=== PATIENT | female | born 1965 | race Caucasian/White ===

== ENCOUNTER → 2020-08-21 15:00 | Outpatient (BNV) | payer OTHER, SELFPAY | PROVIDERS: Visit Provider Internal Medicine | DX: C50.911 Malignant neoplasm of unspecified site of right female breast (principal); Z79.810 Long term (current) use of selective estrogen receptor modulators (SERMs); Z17.0 Estrogen receptor positive status [ER+] | CPT/HCPCS: 99213; 99214 ==

== ENCOUNTER 2020-09-19 10:00 | Outpatient (RCR) | payer OTHER, SELFPAY | END 2020-09-19 23:55 | disposition home or self-care (01) | LOC: HO.PAOS 10:00 | PROVIDERS: Visit Provider Counselor Mental Health | DX: F43.23 Adjustment disorder with mixed anxiety and depressed mood (principal) | CPT/HCPCS: 90834 ==

== ENCOUNTER → 2020-10-06 08:53 | Outpatient (BNVA) | payer OTHER, SELFPAY | PROVIDERS: Visit Provider Surgery | DX: Z76.89 Persons encountering health services in other specified circumstances (principal) ==

== ENCOUNTER 2020-11-10 11:20 | Outpatient (REF) | payer OTHER, SELFPAY | END 2020-11-10 11:21 | disposition home or self-care (01) | LOC: HO.LAB 11:20 | PROVIDERS: Visit Provider Internal Medicine | DX: Z20.828 Contact with and (suspected) exposure to other viral communicable diseases (principal) | CPT/HCPCS: 36415; C9803; U0003 ==

== ENCOUNTER 2021-01-02 10:46 | Outpatient (REF) | payer OTHER, SELFPAY ==
--- NOTE | ~2021-01-02 | US_ITS ---
EXAMINATION: US PELVIS COMPLETE US TRANSVAGINAL CLINICAL INFORMATION: Leiomyoma of the uterus. COMPARISON: Ultrasound pelvis 06/14/2020. TECHNIQUE: Transabdominal and transvaginal ultrasounds of the pelvis are performed. FINDINGS: The uterus is anteverted and anteflexed measuring 12.9 cm in length, 3.6 cm in AP and 5.0 cm in transverse dimension. There are several hypoechoic uterine lesions seen: 1. Lesion in the central uterus measures 4.1 x 4.0 4.5 cm. Previously it measured 4.1 x 4.2 x 4.1 cm. 2. Lesion in the right fundus measures 1.5 x 1.1 x 1.4 cm. Previously it measured 1.2 x 1.2 x 1.3 cm. 3. Lesion in the left body of uterus measures 1.7 x 1.5 x 1.4 cm. Previously it measured 1.9 x 1.7 x 1.7 cm. 4. Lesion in the right body of the uterus measures 2.3 x 2.0 x 2.1 cm. Previously it measured 2.0 x 2.1 x 2.0 cm. 5. Lesion in the lower right uterine segment measures 1.5 x 1.1 x 1.5 cm. Previously it measured 1.4 x 1.1 x 1.3 cm. The endometrium is not well visualized due to multiple fibroids. There are small nabothian cysts seen within the cervical canal. Right ovary measures 2.6 x 1.2 x 2.1 cm and volume 3.4 mL. Previously it measured 2.3 x 1.4 x 1.9 seen. There is no free fluid in cul-de-sac. The left ovary is not seen. US/US transvaginal IMPRESSION: Multiple uterine fibroids, stable. No significant changes. Small nabothian cysts in the cervix. Unremarkable right ovary. Left ovary is not seen.
--- NOTE | ~2021-01-02 | US_ITS ---
EXAMINATION: US PELVIS COMPLETE US TRANSVAGINAL CLINICAL INFORMATION: Leiomyoma of the uterus. COMPARISON: Ultrasound pelvis 06/14/2020. TECHNIQUE: Transabdominal and transvaginal ultrasounds of the pelvis are performed. FINDINGS: The uterus is anteverted and anteflexed measuring 12.9 cm in length, 3.6 cm in AP and 5.0 cm in transverse dimension. There are several hypoechoic uterine lesions seen: 1. Lesion in the central uterus measures 4.1 x 4.0 4.5 cm. Previously it measured 4.1 x 4.2 x 4.1 cm. 2. Lesion in the right fundus measures 1.5 x 1.1 x 1.4 cm. Previously it measured 1.2 x 1.2 x 1.3 cm. 3. Lesion in the left body of uterus measures 1.7 x 1.5 x 1.4 cm. Previously it measured 1.9 x 1.7 x 1.7 cm. 4. Lesion in the right body of the uterus measures 2.3 x 2.0 x 2.1 cm. Previously it measured 2.0 x 2.1 x 2.0 cm. 5. Lesion in the lower right uterine segment measures 1.5 x 1.1 x 1.5 cm. Previously it measured 1.4 x 1.1 x 1.3 cm. The endometrium is not well visualized due to multiple fibroids. There are small nabothian cysts seen within the cervical canal. Right ovary measures 2.6 x 1.2 x 2.1 cm and volume 3.4 mL. Previously it measured 2.3 x 1.4 x 1.9 seen. There is no free fluid in cul-de-sac. The left ovary is not seen. US/US pelvic complete IMPRESSION: Multiple uterine fibroids, stable. No significant changes. Small nabothian cysts in the cervix. Unremarkable right ovary. Left ovary is not seen.
== END 2021-01-02 10:47 | disposition home or self-care (01) ==
LOC: HO.US 10:46
PROVIDERS: Visit Provider Obstetrics & Gynecology
DX: D25.9 Leiomyoma of uterus, unspecified (principal)
CPT/HCPCS: 76830; 76856

== ENCOUNTER → 2021-01-10 09:07 | Outpatient (BNVA) | payer OTHER, SELFPAY | PROVIDERS: Visit Provider Obstetrics & Gynecology ==

== ENCOUNTER → 2021-01-17 09:45 | Outpatient (BNVA) | payer OTHER, SELFPAY | PROVIDERS: Visit Provider Surgery ==

== ENCOUNTER 2021-03-26 09:53 | Outpatient (REF) | payer OTHER, SELFPAY ==
--- NOTE | ~2021-03-26 | MM_ITS ---
EXAMINATION: MM DIAGNOSTIC DIGITAL BREAST TOMOSYNTHESIS, BILATERAL CLINICAL INFORMATION: Status post right breast lumpectomy and radiation therapy. COMPARISON: Mammography: May 25, 2020 and studies dating back to July 07, 2012 TECHNIQUE: Digital breast tomosynthesis is performed in both the craniocaudal and mediolateral oblique views along with computer-aided detection (CAD). Synthesized 2D images are generated from the tomosynthesis. Additional spot magnification views right breast in craniocaudal and 90 degree mediolateral views performed. FINDINGS: The breasts are heterogeneously dense, which may obscure small masses (ACR BI-RADS breast composition Category c). Postsurgical and radiation change again seen within the right breast. No new abnormal dominant mass or suspicious grouping of microcalcifications is seen within either breast. Results are provided to the patient at time of visit by the technologist. MM/MM tomosynthesis diagnostic BI IMPRESSION: Stable appearance of the breasts with no specific mammographic evidence to suggest new malignancy. ASSESSMENT: BI-RADS 2: Benign RECOMMENDATION: Diagnostic mammography at time of next annual exam, due in 12 months. This patient's information was entered into a reminder system with a target due date for their next mammogram.
== END 2021-03-26 09:54 | disposition home or self-care (01) ==
LOC: HO.MAMMO 09:53
PROVIDERS: Visit Provider Surgery
DX: C50.911 Malignant neoplasm of unspecified site of right female breast (principal); Z92.3 Personal history of irradiation
CPT/HCPCS: 77062; 77066

== ENCOUNTER → 2021-04-27 09:55 | Outpatient (BNVA) | payer OTHER, SELFPAY | PROVIDERS: PCP Pediatrics; Visit Provider Surgery ==

== ENCOUNTER → 2021-05-03 07:59 | Outpatient (BNVA) | payer OTHER, SELFPAY | PROVIDERS: PCP Pediatrics; Visit Provider Advanced Practice Midwife ==

== ENCOUNTER 2021-07-10 10:51 | Outpatient (REF) | payer OTHER, SELFPAY ==
--- NOTE | ~2021-07-10 | US_ITS ---
EXAMINATION: US PELVIS COMPLETE CLINICAL INFORMATION: Leiomyoma of the uterus. COMPARISON: Ultrasound pelvis 01/02/2021. TECHNIQUE: Transabdominal and transvaginal imaging of pelvis is performed. FINDINGS: The uterus is anteverted measuring 13.6 cm in length, 4.2 cm AP and 5.8 cm in transverse dimension. Endometrium is distorted secondary to fibroid disease with approximate thickness measuring 0.5 cm. There are several hypoechoic lesions visualized: 1. Lesion in the central uterus measures 3.3 x 3.3 x 2.6 cm. Previously it measured 4.1 x 4.0 x 4.5 cm. 2. Lesion in the right fundus measures 1.0 x 1.1 x 1.2 cm. Previously it measured 1.5 x 1.1 x 1.4 cm. 3. Lesion in the left mid body of uterus measures 1.3 x 1.2 x 1.4 cm. Previously it measured 1.7 x 1.5 x 1.4 cm. 4. Lesion in the right body of uterus measures 1.4 x 1.5 x 1.5 cm. Previously it measured 2.3 x 2.0 x 2.1 cm. 5. Previously seen lesion in the right lower uterine body is not visualized at this time. The right ovary measures 2.6 x 1.9 x 1 0.5 mL and volume 3.9 mL. It appears unremarkable. Previously right ovary measured 2.6 x 1.2 x 2.1 cm and volume 3.4 mL. The left ovary measures 2.3 x 2.9 x 1.6 cm and volume 5.2 mL. Previously not seen. There is no free fluid in the cul-de-sac. US/US pelvic complete IMPRESSION: Multiple uterine fibroids as described above. The endometrial thickness is not optimally visualized, however, measures approximately 0.5 cm. The right ovary is unremarkable. The left ovary is not seen.
== END 2021-07-10 10:52 | disposition home or self-care (01) ==
LOC: HO.US 10:51
PROVIDERS: PCP Pediatrics; Visit Provider Obstetrics & Gynecology
DX: D25.9 Leiomyoma of uterus, unspecified (principal)
CPT/HCPCS: 76830; 76856

== ENCOUNTER → 2021-07-17 09:33 | Outpatient (BNVA) | payer OTHER, SELFPAY | PROVIDERS: PCP Pediatrics; Visit Provider Surgery ==

== ENCOUNTER → 2021-07-24 14:53 | Outpatient (BNVA) | payer OTHER, SELFPAY | PROVIDERS: PCP Pediatrics; Visit Provider Obstetrics & Gynecology ==

== ENCOUNTER 2021-07-26 09:34 | Outpatient (REF) | payer OTHER, SELFPAY ==
--- NOTE | ~2021-07-26 | MR_ITS ---
EXAMINATION: MR BREAST WITHOUT AND WITH CONTRAST, BILATERAL CLINICAL INFORMATION: High-risk screening. History of right breast cancer treated with lumpectomy and radiation COMPARISON: No previous breast MRI. TECHNIQUE: Imaging was performed with a dedicated breast coil. Prior to the administration of contrast, bilateral axial T1 and bilateral axial T2 weighted sequences were obtained. After the uneventful administration of?6.5 mL of Gadavist, dynamic contrast-enhanced VIBRANT series through the breasts in the axial plane were performed. Subtracted images were performed and reviewed. A delayed sagittal sequence through both breasts was acquired. Additionally, CAD post-processing, including maximum intensity projections, 3-D reconstructions and kinetic analysis, were performed an independent workstation and reviewed by the interpreting radiologist is a portion of this exam. FINDINGS: There is minimal background parenchymal enhancement. LEFT BREAST: No suspicious masslike or non-masslike enhancement. No abnormal skin thickening or nipple retraction. No abnormal architectural distortion. Review of the T2 weighted images demonstrates no fibrocystic changes or dilated ducts. Review of kinetic images reveals no additional findings. RIGHT BREAST: Post lobectomy changes are demonstrated in the upper outer quadrant without associated enhancement. No suspicious masslike or non-masslike enhancement. No abnormal skin thickening or nipple retraction. No abnormal architectural distortion. Review of the T2 weighted images demonstrates no fibrocystic changes or dilated ducts. Review of kinetic images reveals no additional findings. There are postsurgical changes in the right axillary region. There is no suspicious internal mammary chain or axillary adenopathy. Limited views of the chest and abdomen are unremarkable. MR/MR breast BI wo/w con IMPRESSION: No MR specific evidence of malignancy. ASSESSMENT: LEFT BREAST: BI-RADS 1-Negative RIGHT BREAST: BI-RADS 1-Negative RECOMMENDATIONS: Clinical follow-up. Continued annual mammographic surveillance. Further breast MRI as risk factors dictate.
== END 2021-07-26 09:35 | disposition home or self-care (01) ==
LOC: HO.MRI 09:34
PROVIDERS: Visit Provider Surgery
DX: C50.911 Malignant neoplasm of unspecified site of right female breast (principal)
CPT/HCPCS: 77049; A9585

== ENCOUNTER → 2021-07-30 15:39 | Outpatient (BNVA) | payer OTHER, SELFPAY | PROVIDERS: PCP Pediatrics; Visit Provider Obstetrics & Gynecology ==

== ENCOUNTER → 2021-08-02 10:43 | Outpatient (REF) | payer OTHER, SELFPAY | LOC: HO.CARD 10:43 | PROVIDERS: Visit Provider Internal Medicine | DX: Z13.89 Encounter for screening for other disorder (principal) ==

== ENCOUNTER → 2021-08-30 09:36 | Outpatient (BNVA) | payer OTHER, SELFPAY | PROVIDERS: PCP Pediatrics; Visit Provider Obstetrics & Gynecology ==

== ENCOUNTER → 2021-10-16 09:10 | Outpatient (BNVA) | payer OTHER, SELFPAY | PROVIDERS: PCP Pediatrics; Visit Provider Surgery ==

== ENCOUNTER 2021-10-31 09:00 | Outpatient (RCR) | payer OTHER, SELFPAY | END 2021-12-03 13:26 | disposition home or self-care (01) | LOC: HO.PTWFD 09:00 | PROVIDERS: PCP Pediatrics; Visit Provider Pediatrics | DX: M54.30 Sciatica, unspecified side (principal) | CPT/HCPCS: 97110; 97140; 97161; 97530; 97535 ==

== ENCOUNTER → 2022-01-15 10:18 | Outpatient (BNVA) | payer OTHER, SELFPAY | PROVIDERS: PCP Internal Medicine; Referring Provider Internal Medicine; Visit Provider Surgery | DX: C50.911 Malignant neoplasm of unspecified site of right female breast (principal); F17.210 Nicotine dependence, cigarettes, uncomplicated; Z79.899 Other long term (current) drug therapy | CPT/HCPCS: 99212 ==

== ENCOUNTER 2022-03-29 12:19 | Outpatient (REF) | payer OTHER, SELFPAY ==
--- NOTE | ~2022-03-29 | MM_ITS ---
EXAMINATION: MM DIAGNOSTIC DIGITAL BREAST TOMOSYNTHESIS, BILATERAL CLINICAL INFORMATION: Status post right breast lumpectomy. COMPARISON: Mammography: MRI of 07/26/2021 and mammography dating back to 07/07/2012. TECHNIQUE: Digital breast tomosynthesis is performed in both the craniocaudal and mediolateral oblique views along with computer-aided detection (CAD). Synthesized 2D images are generated from the tomosynthesis. Spot magnification views of the right breast in craniocaudal and 90-degree mediolateral views. FINDINGS: The breasts are heterogeneously dense, which may obscure small masses (ACR BI-RADS breast composition Category c). There are no new significant masses, abnormal calcifications, or other abnormalities. Architectural distortion upper outer aspect of the right breast is again seen from previous surgery. Results are provided to the patient at time of visit by the technologist. MM/MM tomosynthesis diagnostic BI IMPRESSION: There are no significant changes from prior study. ASSESSMENT: BI-RADS 2: Benign. RECOMMENDATION: Diagnostic mammography at time of next annual exam, due in 12 months. This patient's information was entered into a reminder system with a target due date for their next mammogram.
== END 2022-03-29 12:20 | disposition home or self-care (01) ==
LOC: HO.MAMMO 12:19
PROVIDERS: PCP Internal Medicine; Visit Provider Pediatrics
DX: C50.911 Malignant neoplasm of unspecified site of right female breast (principal)
CPT/HCPCS: 77062; 77066

== ENCOUNTER 2022-07-10 11:01 | Outpatient (REF) | payer OTHER, SELFPAY ==
--- NOTE | ~2022-07-10 | US_ITS ---
EXAMINATION: US PELVIS CLINICAL INFORMATION: Leiomyoma of uterus. COMPARISON: Previous pelvic ultrasounds, most recent July 2021. TECHNIQUE: Ultrasound of the pelvis is performed using both transabdominal and transvaginal transducers along with Doppler. Transvaginal imaging is performed due to inadequate visualization transabdominally. FINDINGS: The uterus is anteverted and measures 9.3 x 3.8 x 6.1 cm region. There are 5 focal uterine lesions seen suggestive of fibroids. Largest measure 2.3 x 2.2 x 2.5 cm adjacent to the endometrium in the uterine body and 2.8 x 2 x 2.7 cm adjacent to the endometrium in the fundus. This does not appear appreciably changed from prior exams. The endometrium is difficult to visualize due to the fibroids Endometrial thickness is estimated at 0.7 cm. There are nabothian cysts in the cervix. The ovaries are not seen. There is no fluid in the pelvis. US/US pelvic and transvaginal IMPRESSION: Fibroid uterus. Ovaries not seen.
== END 2022-07-10 11:02 | disposition home or self-care (01) ==
LOC: HO.US 11:01
PROVIDERS: Visit Provider Advanced Practice Midwife
DX: D25.9 Leiomyoma of uterus, unspecified (principal)
CPT/HCPCS: 76830; 76856

== ENCOUNTER 2022-10-05 07:32 | Outpatient (REF) | payer OTHER, SELFPAY ==
[2022-10-05 09:24] LABS: Cholesterol 247 mg/dL; HDL Cholesterol 100 mg/dL; LDL Cholesterol Calculated 116 mg/dl; Triglycerides 157 mg/dL
== END 2022-10-05 07:33 | disposition home or self-care (01) ==
LOC: HO.LAB 07:32
PROVIDERS: PCP Internal Medicine; Visit Provider Internal Medicine
DX: Z00.01 Encounter for general adult medical examination with abnormal findings (principal); Z78.0 Asymptomatic menopausal state
CPT/HCPCS: 36415; 80061; 82306

== ENCOUNTER 2023-01-07 08:40 | Outpatient (REF) | payer OTHER, SELFPAY ==
--- NOTE | ~2023-01-07 | MM_ITS ---
EXAMINATION: BONE DENSITOMETRY CLINICAL INDICATION: Postmenopausal bone loss. COMPARISON: None (current study represents initial baseline exam). TECHNIQUE: Using a [employer] DXA System (software version: 13.1) manufactured by [employer], dual-energy x-ray absorptiometry was performed of the lumbar spine and left hip. The images are of good technical quality. Summary results are attached. FINDINGS: AP SPINE L1-L4: BMD 1.271 g/cm2, Z-score 1.4, T-score 0.8, normal. LEFT FEMUR, NECK: BMD 0.966 g/cm2, Z-score 0.4, T-score -0.5, normal. LEFT FEMUR, TOTAL: BMD 1.059 g/cm2, Z-score 1.0, T-score 0.4, normal. IDENTIFIED RISK FACTORS: Menopause. HISTORY OF FRACTURE: None listed. MEDICATIONS: Vitamin D. ERT/SERMS. MM/XR DEXA axial skeleton IMPRESSION: 1. DIAGNOSIS: Normal bone density based on the lowest T-score value of -0.5 in the femoral neck applying World Health Organization criteria. 2. 10-YEAR FRACTURE RISK PREDICTION, FRAX: According to the guidelines, FRAX calculation should only be performed on patients in the osteopenia bone density category. Therefore, FRAX was not performed on this patient.? 3. Treatment Recommendations: NOF guidelines recommend consideration for treatment in postmenopausal women and men age 50 and older presenting with the following: -A hip or vertebral (clinical or morphometric) fracture. -T-score less than or equal to -2.5 at the femoral neck or spine after appropriate evaluation to exclude secondary causes. -Low bone mass at the hip or spine and a 10-year fracture probability by FRAX of greater than or equal to 3% for hip fracture or greater than or equal to 20% for major osteoporotic fracture based on the [place] adapted WHO algorithm. 4. Other Recommendations: All treatment decisions require clinical judgment and consideration of individual patient factors, including patient preferences, comorbidities, previous drug use, risk factors not captured in the FRAX model (e.g. frailty, falls, vitamin D deficiency, increased bone turnover, interval significant decline in bone density) and possible under or overestimation of fracture risk by FRAX. FUTURE SCAN RECOMMENDATION: People with diagnosed cases of osteoporosis or at high risk for fracture should have regular bone mineral density tests. For patients eligible for Medicare, routine testing is allowed once every 2 years. The testing frequency can be increased to one year for patients who have rapidly progressing disease, those who are receiving or discontinuing medical therapy to restore bone mass, or have additional risk factors.
== END 2023-01-07 08:41 | disposition home or self-care (01) ==
LOC: HO.MAMMO 08:40
PROVIDERS: PCP Internal Medicine; Visit Provider Internal Medicine
DX: Z13.820 Encounter for screening for osteoporosis (principal); Z78.0 Asymptomatic menopausal state; C50.919 Malignant neoplasm of unspecified site of unspecified female breast
CPT/HCPCS: 77080

== ENCOUNTER → 2023-01-17 08:56 | Outpatient (BNVA) | payer OTHER, SELFPAY | PROVIDERS: PCP Internal Medicine; Referring Provider Internal Medicine; Visit Provider Surgery | DX: C50.911 Malignant neoplasm of unspecified site of right female breast (principal) ==

== ENCOUNTER 2023-04-01 10:57 | Outpatient (REF) | payer OTHER, SELFPAY ==
--- NOTE | ~2023-04-01 | MM_ITS ---
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 Due for yearly. COMPARISON: Multiple prior mammography exams, including most recent 03/29/2022. MRI bilateral breasts 07/26/2021. TECHNIQUE: Digital breast tomosynthesis is performed in both the craniocaudal and mediolateral oblique views along with computer-aided detection (CAD). Synthesized 2D images are generated from the tomosynthesis. Additional magnification right CC and magnification right ML views are obtained. FINDINGS: There are scattered areas of fibroglandular density (ACR BI-RADS breast composition Category b). There are post therapy changes on the right with stable scarring upper outer quadrant. Neither breast shows developing density or interval architectural abnormality. Benign grouped calcifications anterior 3:00 left breast noted in 2019 and no longer clearly demonstrated. There are no abnormal calcifications in either breast. The axilla are unremarkable. Results are provided to the patient at time of visit by the technologist. MM/MM tomosynthesis diagnostic BI IMPRESSION: -No mammographic evidence of malignancy. -Post therapy changes right breast, stable. ASSESSMENT: BI-RADS 2: Benign RECOMMENDATION: Annual bilateral mammography. This patient's information was entered into a reminder system with a target due date for their next mammogram.
== END 2023-04-01 10:58 | disposition home or self-care (01) ==
LOC: HO.MAMMO 10:57
PROVIDERS: PCP Internal Medicine; Visit Provider Internal Medicine
DX: Z85.3 Personal history of malignant neoplasm of breast (principal)
CPT/HCPCS: 77062; 77066

== ENCOUNTER 2023-05-19 08:19 | Emergency (ER) | payer OTHER, SELFPAY ==
--- NOTE | ~2023-05-19 | CT_ITS ---
EXAMINATION: CT ABDOMEN AND PELVIS WITH CONTRAST CLINICAL INFORMATION: Acute lower abdominal pain. COMPARISON: CT abdomen/pelvis 03/30/2020 TECHNIQUE: Multidetector volumetric images were obtained from the superior aspect of the liver through the pubic symphysis following administration 85 mL of Omnipaque 350 intravenous contrast. Sagittal and coronal reformatted images were obtained on the technologist's workstation. Oral contrast: No This CT examination was performed using dose optimization techniques as appropriate, variously including the following: *Automated exposure control *Adjustment of mA and/or kV according to patient size (this includes techniques or standardized protocols for targeted exams where dose is matched to indication/reason for exam; i.e. extremities or head) *Use of iterative reconstruction technique DLP: 563 mGy-cm FINDINGS: LUNG BASES: The visualized lung bases are unremarkable. LIVER, GALLBLADDER, AND BILIARY TREE: The liver is mildly decreased in attenuation. No focal hepatic lesion or biliary ductal dilatation is present. The gallbladder is surgically absent. PANCREAS: No ductal dilatation. SPLEEN: Not enlarged. Multiple complex septated cysts are present. The largest measures 2.0 x 2.5 cm in transverse dimension. No perisplenic free fluid. ADRENAL GLANDS: No adrenal masses. KIDNEYS AND URETERS: The kidneys are symmetric in size and enhancement. No hydronephrosis or perinephric stranding. BLADDER: Unremarkable. GASTROINTESTINAL TRACT: Wall thickening/submucosal edema of the transverse colon with prominence of the vasa recta and mild pericolonic inflammatory change. No small bowel obstruction. Appendix is within normal limits. ABDOMINAL WALL: No significant hernia is appreciated. LYMPH NODES: No bulky abdominal or pelvic lymphadenopathy. VASCULAR: Normal caliber abdominal aorta. PELVIC VISCERA: The uterus and adnexa are unremarkable. OSSEOUS STRUCTURES: L5-S1 spondylolysis and spondylolisthesis. CT/CT abdomen pelvis w IV con IMPRESSION: Findings most likely representing colitis. Infectious and inflammatory etiologies should be considered. Stable complex splenic cyst. Similar findings on comparison CT performed 03/30/2020.
[2023-05-19 08:32] VITALS: BP 172/92; PULSE 88; RESP 16; TEMP 36.7; O2SAT 98; BMI 26.4
[2023-05-19] MEDS: 0.9 % Sodium Chloride 1,000 ML 999 ML IV (08:49)
[2023-05-19 09:03] LABS: MANUAL DIFF FLAG NO
[2023-05-19 09:17] LABS: Basophils Percent Auto 0.3 % (0-2); Eosinophils Percent Auto 0.4 % (0-4); Hematocrit 39.7 % (37.0-47.0); Hemoglobin 13.1 g/dl (12.0-16.0); Imm Gran Abs Auto 0.02 X10*3/uL (0.00-0.03); Imm Gran Pct Auto 0.3 % (0.0-0.4); Lymphocytes Absolute Auto 0.7 X10*3/uL (1.2-4.9); Lymphocytes Percent Auto 10.1 % (20-40); Mean Corpuscular Hemoglobin 29.1 pg (27.0-33.0); Mean Corpuscular Volume 88.2 fL (80.0-98.0); Monocytes Absolute Auto 0.5 X10*3/uL (0.1-1.2); Monocytes Percent Auto 6.5 % (2-11); Neutrophils Absolute Auto 5.9 x10*3/uL (2.0-8.3); Neutrophils Percent Auto 82.4 % (45-73); Platelet Count 123 X10*3/uL (160-400); Red Cell Distribution Width 13.1 % (11.0-16.0); White Blood Count 7.1 X10*3/uL (4.8-10.8)
[2023-05-19 09:20] LABS: Alanine Aminotransferase 16 U/L (0-31); Alkaline Phosphatase 50 U/L (39-117); Anion Gap 12 (12-20); Aspartate Amino Transferase 19 U/L (5-31); Bilirubin Total 0.3 mg/dL (0.0-1.0); Blood Urea Nitrogen 10 mg/dL (9-16); Calcium 9.5 mg/dL (8.4-10.2); Carbon Dioxide 25 mmol/L (22-29); Chloride 109 mmol/L (96-108); Creatinine Clr Calc Pharmacy 83.8; Estimated Glomerular Filt Rate > 60; Glucose Random 108 mg/dL (60-115); Potassium 3.9 mmol/L (3.3-5.1); Sodium 142 mmol/L (135-145); Total Protein 6.7 g/dL (6.5-8.0)
[2023-05-19] MEDS: iohexoL 350 MG/ML 100 ML INFUS..BTL IV (09:30)
--- NOTE | 2023-05-19 09:32 | ED_ITS ---
HPI - Abdominal Pain General Chief Complaint: Abdominal Pain Stated Complaint: lower abd pain Time Seen by Provider: 05/19/23 08:27 Source: patient Mode of arrival: ambulatory Limitations: no limitations History of Present Illness HPI narrative: 58-year-old female presents with lower abdominal pain. The symptoms are intermittent. They are severe. The symptoms are described as a sharp pain. The pain does not radiate. There is no clear relieving or exacerbating features. Patient's pain is minimal at this time but when it comes on is a 9/10. She has never had pain like this before. There is some nausea but no vomiting. She denies any constipation. She did have loose bowel movement today. Symptoms started 1 day ago. Patient's sister recently passed in February of this year with colon cancer. Patient had colonoscopy and upper endoscopy 3 years ago. She did have a polyp removed. Follow-up is at 5 years. Related Data Home Medications Medication Instructions Recorded Confirmed Probiotic 500 mg PO DAILY 11/29/20 12/25/22 ferrous sulfate 325 mg (65 mg 325 mg PO DAILY 11/29/20 12/25/22 iron) tablet (iron) acetaminophen 500 mg capsule 500 mg PO Q6H PRN Pain 08/20/21 12/25/22 escitalopram oxalate 10 mg tablet 10 mg PO DAILY 10/16/21 12/25/22 (Lexapro) Vitamin D (with calcium) 1 tab PO DAILY 12/25/21 12/25/22 Previous Rx's Medication Instructions Recorded lorazepam 0.5 mg tablet 1 tab PO Q8H PRN anxiety #30 tabs 01/02/21 letrozole 2.5 mg tablet 2.5 mg PO DAILY #60 tabs 01/27/23 amoxicillin 875 mg-potassium 1 tab PO Q8H 10 days #30 tabs 05/19/23 clavulanate 125 mg tablet Allergies Allergy/AdvReac Type Severity Reaction Status Date / Time prednisone [PREDNISONE] Allergy Intermediate SHORTNESS Verified 01/17/23 09:10 OF BREATH, tachycardia Review of Systems Review of Systems CONSTITUTIONAL: Denies weight loss, fever and chills. HEENT: Denies changes in vision and hearing. RESPIRATORY: Denies SOB and cough. CV: Denies palpitations no CP. GI: + abdominal pain, nausea and diarrhea. : Denies dysuria and urinary frequency. MSK: Denies myalgia and joint pain. SKIN: Denies rash and pruritus. NEUROLOGICAL: Denies headache and syncope. PSYCHIATRIC: Denies recent changes in mood. Denies anxiety and depression. All other ROS are negative unless in HPI PMFSH Past Medical History Medical History Anxiety BRCA gene mutation negative Breast cancer delivery delivered COVID-19 FH: melanoma Polyp of colon Polyp of stomach Surgical History H/O dilation and curettage History of section History of cholecystectomy (06/28/20) History of colonoscopy (2015) History of elbow surgery History of esophagogastroduodenoscopy (EGD) (04/05/20) History of hand surgery History of lumpectomy of right breast (05/25/20) History of oral surgery Invasive ductal carcinoma of right breast (Unknown) Family History Family History Father History of COPD Substance use disorder Mother History of anxiety History of hypertension Mental health disorder Sister History of colon cancer, Onset Age: 48 History of ovarian cancer History of breast cancer, Onset Age: 42 Mental health disorder Daughter History of cerebral palsy Paternal Grandmother History of [place] (myocardial infarction) Maternal Grandfather History of [place] (myocardial infarction) Paternal Uncle History of throat cancer Paternal Aunt History of breast cancer Family/Other Bone cancer Family/Other Melanoma Social History Social History Household Members: Spouse and Children Housing: House Alcohol intake: current Alcohol intake frequency: a few times a month Alcohol type: beer Patient Tobacco Use Status: Former Tobacco user Cigarette Packs Per Day: 1 e-Cigarette/Vaping Use: Currently Using Substance Use Type: Marijuana Advance Directives: No Advance Directives Information Provided: No service: No Current occupational status: employed Gender identity: Female Cognitive needs: No Hearing needs: No Vision needs: Yes Physical Exam ED Vital Signs: Vital Signs - 24 hr 05/19/23 08:32 Temperature 98.0 F Pulse Rate 88 Respiratory Rate 16 Blood Pressure 172/92 H Pulse Oximetry 98 Oxygen Delivery Method Room Air BMI result Body Mass Index 26.4 GEN: Well developed, no acute distress, alert, oriented HEENT: Normocephalic, atraumatic, normal external ears, nose appears normal, no oropharyngeal edema or exudates Eyes: Normal to appearance Neck: Supple, no lymphadenopathy Respiratory: Talks in complete sentences, no respiratory distress, clear to auscultation bilaterally Cardiovascular: Regular rate and rhythm, no murmurs rubs or gallops Abdomen: Soft, nontender, nondistended, no guarding, no rebound Back: No CVA tenderness Extremities: No clubbing cyanosis or edema Neurologic: No focal neurologic deficits, cranial nerves 2-12 intact, strength is 5/5 bilaterally Skin: No rash Course Course Course Narrative: It is 12:00 p.m., the workup is complete. Patient has evidence of colitis on CT scan. She also has elevated blood pressure. I recommended follow-up with her primary care provider regarding her blood pressure. She will follow-up with a boomswing operator for the colitis. She will start Augmentin 3 times daily. She was given reasons to return to the emergency department. All questions were addressed and answered. Medical Decision Making Medical Decision Making [facility] Narrative: 58-year-old female with history of breast cancer presents with abdominal pain. The pain is in lower abdomen. Examination is benign without rebound or guarding. There is no CVA tenderness. Differential diagnosis includes diverticulitis, colitis, urinary tract infection, bladder spasm, IBS, IBD. Patient is not requesting analgesia at this time. Will provide patient with IV fluids, check a CBC to make sure there is no elevated white blood cell count or significant anemia. Will check metabolic panel to rule out possible renal dysfunction other electrolyte abnormality. Will order urinalysis to check for urinary tract infection. Will order CT scan to rule out additional intra- abdominal inflammatory processes. Disposition is currently pending. Patient may warrant hospitalization Differential Diagnosis Differential Diagnoses: The differential diagnosis associated with the presentation includes Acute colitis Lab Data [facility] Lab Attestation statement: I reviewed the patient's lab results. 05/19/23 09:00 05/19/23 09:00 Labs: Lab Results 05/19/23 05/19/23 05/19/23 Range/Units 09:00 09:00 09:49 WBC 7.1 (4.8-10.8) X10*3/uL RBC 4.50 (4.20-5.50) X10*6/uL Hgb 13.1 (12.0-16.0) g/dl Hct 39.7 (37.0-47.0) % MCV 88.2 (80.0-98.0) fL MCH 29.1 (27.0-33.0) pg MCHC 33.0 (31.0-35.0) g/dl RDW 13.1 (11.0-16.0) % Plt Count 123 L D (160-400) X10*3/uL MPV 10.0 (9.4-12.3) fL Immature Gran % (Auto) 0.3 (0.0-0.4) % Neut % (Auto) 82.4 H (45-73) % Lymph % (Auto) 10.1 L (20-40) % Kings % (Auto) 6.5 (2-11) % Eos % (Auto) 0.4 (0-4) % Baso % (Auto) 0.3 (0-2) % Lymph # (Auto) 0.7 L (1.2-4.9) X10*3/uL Kings # (Auto) 0.5 (0.1-1.2) X10*3/uL Eos # (Auto) 0.0 (0.0-0.4) X10*3/uL Baso # (Auto) 0.0 (0.0-0.2) X10*3/uL Abs Immat Gran (auto) 0.02 (0.00-0.03) X10*3/uL Absolute Neuts (auto) 5.9 (2.0-8.3) x10*3/uL Absolute Nucleated RBC 0.000 (0.0-0.012) X10*3/uL Nucleated RBC % (auto) 0.0 (0.0-0.2) /100WBC Sodium 142 (135-145) mmol/L Potassium 3.9 D (3.3-5.1) mmol/L Chloride 109 H (96-108) mmol/L Carbon Dioxide 25 (22-29) mmol/L Anion Gap 12 (12-20) BUN 10 (9-16) mg/dL Creatinine 0.71 (0.5-1.4) mg/dL Estim Creat Clear Calc 83.8 Estimated GFR > 60 Random Glucose 108 (60-115) mg/dL Calcium 9.5 (8.4-10.2) mg/dL Total Bilirubin 0.3 (0.0-1.0) mg/dL AST 19 (5-31) U/L ALT 16 (0-31) U/L Alkaline Phosphatase 50 (39-117) U/L Total Protein 6.7 (6.5-8.0) g/dL Albumin 4.0 (3.5-5.0) g/dL Urine Color Yellow Urine Appearance Clear Urine pH 5.5 (5.0-9.0) Ur Specific Anson 1.015 (1.005-1.025) Urine Protein Negative (Neg-Trace) mg/dL Urine Glucose (UA) Negative (Negative) mg/dL Urine Ketones Negative (Negative) mg/dL Urine Blood Negative (Negative) Urine Nitrite Negative (Negative) Ur Leukocyte Esterase Negative (Negative) Independent Interpretation I performed an independent interpretation of an: CT Scan Interpretation: Abd: acute inflammatory changes Radiology Impression Discussion of test interpretation with radiology: I have reviewed the radiologist's reading. Radiologist Impression: CT/CT abdomen pelvis w IV con IMPRESSION: Findings most likely representing colitis. Infectious and inflammatory etiologies should be considered. ? Stable complex splenic cyst. Similar findings on comparison CT performed 03/30/2020. Prescription Management I considered prescription management with: Pain Medication and Antibiotic Medications Administered Discontinued Medications Generic Name Dose Route Start Last Admin Trade Name Freq PRN Reason Stop Dose Admin Sodium Chloride 1,000 mls @ 999 mls/hr 05/19/23 09:00 05/19/23 09:46 Ns IV 05/19/23 10:00 Infused .Q1H1M MARY Infusion Iohexol 100 ml 05/19/23 09:30 05/19/23 09:30 Iohexol 350 Mg/Ml 100 Ml Infus..Btl IV 05/19/23 09:31 85 ml ONCE ONE Administration Discharge Plan Discharge Clinical Impression: Abdominal pain, Acute colitis Patient Disposition: Home, Self-Care Instructions: Abdominal Pain (ED), Colitis (ED) Prescriptions: New amoxicillin-pot clavulanate 875-125 mg tablet 1 tab PO Q8H 10 Days Qty: 30 0RF No Action ferrous sulfate [iron] 325 mg (65 mg iron) Tablet 325 mg PO DAILY Probiotic 500 mg PO DAILY lorazepam 0.5 mg tablet 1 tab PO Q8H PRN (Reason: anxiety) Qty: 30 0RF acetaminophen [Tylenol Extra Strength] 500 mg Capsule 500 mg PO Q6H PRN (Reason: Pain) Vitamin D (with calcium) 1 tab PO DAILY letrozole 2.5 mg Tablet 2.5 mg PO DAILY Qty: 60 3RF escitalopram oxalate [Lexapro] 10 mg tablet 10 mg PO DAILY Referrals: Caroline Bernard MD [Physician] - 1 week
[2023-05-19 09:58] LABS: Appearance Urine Clear; Color Urine Yellow; Glucose Urine UA Negative (Negative); Leukocyte Esterase Urine Negative (Negative); Nitrite Urine Negative (Negative); PH 5.5 (5.0-9.0); Specific Gravity - Urine 1.015 (1.005-1.025); Urine Blood Negative (Negative); Urine Ketones Negative (Negative); Urine Protein Negative (Neg-Trace)
== END 2023-05-19 12:15 | disposition home or self-care (01) ==
PROVIDERS: Emergency Provider Emergency Medicine; PCP Internal Medicine
DX: K52.9 Noninfective gastroenteritis and colitis, unspecified (principal); R10.30 Lower abdominal pain, unspecified; F17.290 Nicotine dependence, other tobacco product, uncomplicated; F12.90 Cannabis use, unspecified, uncomplicated; Z79.899 Other long term (current) drug therapy
CPT/HCPCS: 36415; 74177; 80053; 81003; 85025; 96360; 99284; Q9967

== ENCOUNTER 2023-06-10 10:16 | Outpatient (AMB) | payer OTHER, SELFPAY ==
--- NOTE | 2023-06-10 10:33 | MHC.OFFVIS ---
Intake Vital Signs 06/10/23 10:35 Height 5 ft 4 in Weight 161 lb BMI 27.6 BP 134/72 Intake Visit Reasons: VEGETABLE SCULLION annual exam Intake Note: The patient agreed to use of a medical coding instructor during this encounter. Scribed for MATTHEW Gallardo by Alma Delia Mascorro medical coding instructor, on 06/10/2023 at 10:54 am EST. Deployment Specialist: Deployment Specialist Present (Sangeetha) Allergies prednisone [PREDNISONE] Allergy (Intermediate, Verified 06/10/23 10:36) SHORTNESS OF BREATH, tachycardia Post menopausal: Yes HPI HPI Comments History of Present Illness Details She is a postmenopausal woman presenting for annual exam. Has GI issues and is seeing GI specialist. Patient admits she tries to eat a healthy diet including Calcium and Vitamin D. She stays active with exercise. Currently sexually active. Admits vaginal dryness and is using Replens. Denies VB, vaginal itching and irritation. STD screening offered; she accepts. Family hx of breast, colon and ovarian cancer. Recent loss of sister from cancer in February. Last pap smear 01/12/20. Last mammogram 04/01/23 UTD on colonoscopy. [facility] Medical History Acute colitis Acute colitis Anxiety BRCA gene mutation negative Breast cancer delivery delivered COVID-19 FH: melanoma Polyp of colon Polyp of stomach Surgical History H/O dilation and curettage History of section History of cholecystectomy (06/28/20) History of colonoscopy (2015) History of elbow surgery History of esophagogastroduodenoscopy (EGD) (04/05/20) History of hand surgery History of lumpectomy of right breast (05/25/20) History of oral surgery Invasive ductal carcinoma of right breast (Unknown) Family History Father History of COPD Substance use disorder Mother History of anxiety History of hypertension Mental health disorder Sister History of colon cancer, Onset Age: 48 History of ovarian cancer History of breast cancer, Onset Age: 42 Mental health disorder Daughter History of cerebral palsy Paternal Grandmother History of [place] (myocardial infarction) Maternal Grandfather History of [place] (myocardial infarction) Paternal Uncle History of throat cancer Paternal Aunt History of breast cancer Family/Other Bone cancer Family/Other Melanoma Social History Household Members: Spouse and Children Housing: House Alcohol intake: current Alcohol intake frequency: a few times a month Alcohol type: beer Patient Tobacco Use Status: Former Tobacco user Cigarette Packs Per Day: 1 e-Cigarette/Vaping Use: Currently Using Substance Use Type: Marijuana service: No Current occupational status: employed Sexual 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/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 Gender identity: Female Cognitive needs: No Hearing needs: No Vision needs: Yes Female Reproductive History Menstrual Age of Menarche: 13 Menopause type: natural Total pregnancies: 3 Full term: 3 Number of Living Children: 3 Date of last pap smear: 01/12/20 (neg pap and hpv) Date of Mammogram: 04/01/23 History of abnormal mammogram: Yes Physical Exam Vital Signs: Last Vital Signs BP 134/72 06/10/23 10:35 BMI result Body Mass Index 27.6 Const General: cooperative, healthy appearing, no acute distress, well developed and alert Orientation/consciousness: patient oriented x3 HEENT Head: Yes normal to inspection Eyes General: appearance normal, both eyes and all related structures Neck Neck: Yes normal visual inspection Thyroid: Thyroid normal Chest Other: right breast post surgical scarring Chest palpation & inspection: normal inspection of the chest Breast/axilla inspection: normal inspection of the breasts (no puckering, dimpling, peau de orange, retraction, discharge, masses) Breast/axilla palpation: normal palpation of the breasts Resp Effort & Inspection: normal respiratory effort GI Inspection: Yes normal to inspection Palpation (GI): Soft to palpation (to palpation) Rectal Exam - Female: deferred General: Yes bladder normal to inspection External Female Exam: normal external appearance and normal appearance of the urethra Speculum Exam - Vagina: normal appearance of the vagina, normal palpation, normal vaginal discharge and vagina atrophic Speculum Exam - Cervix: normal appearance of the cervix and normal palpation Bimanual exam- vagina & uterus: normal palpation and normal palpation Bimanual Exam- Adnexa, other: normal adnexae and no masses Skin General skin exam: no rashes or lesions noted Neuro General: patient oriented x3 Cognition (Neuro): normal cognition Extrem General: Yes normal to inspection Psych Attitude: cooperative Thought process: Normal thought process present Assessment & Plan Assessment & Plan (1) Well woman exam: Code(s): Z01.419 - Encounter for gynecological examination (general) (routine) without abnormal findings Plan: Discussed: Current recommendations for pap smears per ASCCP guidelines. Breast awareness and periodic self breast exams. Encouraged yearly mammograms. Maintaining a healthy lifestyle including a well balanced diet including Calcium and Vitamin D and routine exercise. Contact office with any PMB. All of her questions and concerns were addressed to the best of my ability RTO in 1 year for AG. (2) Menopausal vaginal dryness: Code(s): N95.1 - Menopausal and female climacteric states Plan: Recommend Replens moisturizer and continue to use Replens vaginal gel. Coding Level of Care Code Est Pt Prev Care 40-64y(85361) Diagnoses Well woman exam Z01.419 Menopausal vaginal dryness N95.1
[2023-06-10 10:35] VITALS: BP 134/72; BMI 27.6
== END 2023-06-10 11:14 | disposition home or self-care (01) ==
LOC: HO.HWS 10:16
PROVIDERS: PCP Internal Medicine; Visit Provider Advanced Practice Midwife
DX: Z01.419 Encounter for gynecological examination (general) (routine) without abnormal findings (principal); N95.1 Menopausal and female climacteric states
CPT/HCPCS: 99396

== ENCOUNTER → 2023-06-10 10:16 | Outpatient (BNVA) | payer OTHER, SELFPAY | PROVIDERS: PCP Internal Medicine; Visit Provider Advanced Practice Midwife ==

== ENCOUNTER 2023-07-18 09:06 | Outpatient (AMB) | payer OTHER, SELFPAY ==
--- NOTE | 2023-07-18 09:07 | A.OFFVIS_ITS ---
Intake Vital Signs 3 07/18/23 09:25 Height 5 ft 4 in Weight 160 lb BMI 27.5 BP 122/78 Blood Pressure Location Lt brachial Position Sitting Intake Visit Reasons: 6 mth follow up breast exam Intake Note: Patient is seen in office for 6 month follow up visit, breast exam. Patient c/o: denies any concerns or changes Accounting Supervisor Required: No Accompanied by: Self / Same As Patient Allergies prednisone [PREDNISONE] Allergy (Intermediate, Verified 07/18/23 09:26) SHORTNESS OF BREATH, tachycardia HPI HPI Comments 2 History of Present Illness0 Details 58-year-old female patient returning for routine breast examination following a diagnosis of invasive ductal carcinoma in May 2020. She initially noted a palpable lump in the right breast in the upper outer quadrant subsequently underwent mammogram and ultrasound which revealed a suspicious lesion corresponding to the palpable mass.? Core biopsy revealed invasive ductal carcinoma.? She underwent a right breast lumpectomy with needle localization and sentinel node biopsy on 05/25/2020.? Pathology revealed a 2.0 cm invasive ductal carcinoma, ER/OH positive, HER2 Perfecto negative with negative margins.? One of 2 sentinel nodes were positive for malignancy.?Pathological stage pT1c N1a (sn) (i +). She was evaluated by Dr. Mathews and Dr. Light.? While awaiting chemotherapy she developed acute cholecystitis subsequently requiring a laparoscopic cholecystectomy performed on 06/29/2020.? She then underwent chemotherapy followed by radiation therapy.? Prior to the start of radiation therapy she developed COVID-19.? She was subsequently started on tamoxifen and is tolerating this fairly well.? She denies any new breast symptoms.? Her last mammogram dated 04/01/2023 revealed no mammographic evidence of malignancy (BI-RADS 2). She underwent CT abdomen and pelvis on 05/19/2023 performed for abdominal discomfort which revealed evidence of colitis possibly inflammatory. She is being evaluated by Gastroenterology. ?Bilateral breast MRI of 07/26/2021 revealed no suspicious findings (BI-RADS 1 bilateral). [facility] Genetic testing (05/09/2020) revealed no clinically significant mutations or variants of unknown significance.? She feels well denies any new breast symptoms. She is scheduled for a mammogram on 04/01/2023. [facility] Medical History Acute colitis Acute colitis FH: melanoma BRCA gene mutation negative Anxiety COVID-19 delivery delivered Polyp of stomach Polyp of colon Breast cancer Surgical History Invasive ductal carcinoma of right breast (~05/25/20) History of section History of elbow surgery History of hand surgery History of oral surgery History of esophagogastroduodenoscopy (EGD) (04/05/20) History of colonoscopy (2016) History of lumpectomy of right breast (05/25/20) H/O dilation and curettage History of cholecystectomy (06/28/20) Family History Father History of COPD Substance use disorder Mother History of anxiety History of hypertension Mental health disorder Sister History of colon cancer, Onset Age: 48 History of ovarian cancer History of breast cancer, Onset Age: 42 Mental health disorder Daughter History of cerebral palsy Paternal Grandmother History of [place] (myocardial infarction) Maternal Grandfather History of [place] (myocardial infarction) Paternal Uncle History of throat cancer Paternal Aunt History of breast cancer Family/Other Bone cancer Family/Other Melanoma Social History Household Members: Spouse and Children Housing: House Alcohol intake: current Alcohol intake frequency: a few times a month Alcohol type: beer Patient Tobacco Use Status: Former Tobacco user Cigarette Packs Per Day: 1 e-Cigarette/Vaping Use: Currently Using Substance Use Type: Marijuana service: No Current occupational status: employed Sexual 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/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 Gender identity: Female Cognitive needs: No Hearing needs: No Vision needs: Yes Female Reproductive History Menstrual Age of Menarche: 13 Review of Systems Const All systems reviewed & are unremarkable except as noted in HPI and below Card Reports no additional complaints Resp Reports no additional complaints GI Reports no additional complaints Denies nipple discharge Musc Details: Sciatica, currently undergoing physical therapy Skin/Breast Reports breast skin changes, Reports breast pain, Denies breast mass, Denies change in breast shape, Reports change in pigmentation, Reports new lesions (Right arm as noted in HPI) and Denies nipple discharge Ravindra/Lymph Denies lymphadenopathy Physical Exam Vital Signs: Last Vital Signs BP 122/78 07/18/23 09:25 BMI result Body Mass Index 27.5 Const General: cooperative, healthy appearing, comfortable, no acute distress, well developed, alert and awake Neck Neck: Yes normal visual inspection and Yes no lymphadenopathy Chest Other: right breast with well-healed incision in the upper outer quadrant and axilla with no redness, mass, skin change, nipple discharge, nipple retraction, or palpable lymph nodes. Mild tenderness to palpation in the liliam-incisional region but no palpable mass. Left breast with no skin change, nipple discharge, nipple retraction, palpable mass, or enlarged lymph nodes. Chest/axillae images: 2 1. Skin Other: Right upper arm lesion as noted in chest above Extrem General: Yes no clubbing, cyanosis or edema Assessment & Plan Assessment & Plan (1) Invasive ductal carcinoma of right breast: Onset Date: ~05/25/20 Code(s): C50.911 - Malignant neoplasm of unspecified site of right female breast Plan: 58-year-old female with a history of a palpable mass in the right breast determined to be an invasive ductal carcinoma, 2 cm, ER positive, OH positive, HER2 Perfecto negative. She underwent a right breast lumpectomy with sentinel node biopsy. Pathological stage pT1c N1a (sn) (i +). She underwent adjuvant chemotherapy and radiation therapy. She is now on tamoxifen which she is tolerating fairly well but will be stopping switching to another medication. Examination today reveals no evidence of recurrence disease. Mammogram dated 04/01/2023 revealed no mammographic evidence of malignancy (BI-RADS 2). She is due for breast MRI and will be ordered today. She should follow up in 6 months, sooner p.r.n.. Orders: Orders 2 MR breast BI wo/w con Today C50.911 - Malignant neoplasm of unspecified site of right female breast Coding Level of Care Code Est Pt Level 3 (79402) Diagnoses Invasive ductal carcinoma of right breast C50.911
[2023-07-18 09:25] VITALS: BP 122/78; BMI 27.5
== END 2023-07-18 09:34 | disposition home or self-care (01) ==
PROVIDERS: PCP Internal Medicine; Visit Provider Surgery
DX: C50.911 Malignant neoplasm of unspecified site of right female breast (principal)
CPT/HCPCS: 99213

== ENCOUNTER → 2023-07-18 09:06 | Outpatient (BNVA) | payer OTHER, SELFPAY | PROVIDERS: PCP Internal Medicine; Visit Provider Surgery ==

== ENCOUNTER 2023-07-22 08:54 | Outpatient (AMB) | payer OTHER, SELFPAY ==
--- NOTE | 2023-07-22 09:00 | MHC.OFFVIS ---
Intake Vital Signs 07/22/23 09:03 Height 5 ft 4 in Weight 160 lb 14.999 oz BMI 27.6 BP 149/76 H Blood Pressure Location Lt brachial Position Sitting Pulse 70 Intake Visit Reasons: Noninfective gastroenteritis and colitis, Intake Note: Patient presents to in office visit today as a new patient for gastroenteritis and colitis. CC: Patient seen last on [address] Bernard. Patient reports she was having a really bad episode of abdominal pain back in May and was diagnosed with colitis in the hospital. S/p cholecystectomy in 2019. She reports her sister from stage 4 colon cancer in February and she has been battling breast cancer. She reports abdominal pain from lower abdomen, and occasional loose stools. Reports x3 BMs daily usually last one is loose. Denies other GI symptoms today. Last colonoscopy in 2019 with polyps removed. 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 Patient was seen in May for abdominal pain and was diagnosed with colitis. Patient was treated with Augmentin. Patient reports that she no longer has abdominal pain or discomfort. Colonoscopy in 2019 polyps removed. Patient reports that her sister of colorectal cancer in February of this year. Patient reports occasional loose stools 2-3 soft stools postprandially. Patient does have a history of cholecystectomy in 2019. Patient reports occasional acid reflux postprandially. Occasional postprandial abdominal bloating depending on what she eats. Patient denies any issues with anesthesia in the past. No history of sleep apnea. Not on any anticoagulation medication. Denies any cardiac or respiratory symptoms. [facility] Medical History Acute colitis Acute colitis FH: melanoma BRCA gene mutation negative Anxiety COVID-19 delivery delivered Polyp of stomach Polyp of colon Breast cancer Surgical History Invasive ductal carcinoma of right breast (~05/25/20) History of section History of elbow surgery History of hand surgery History of oral surgery History of esophagogastroduodenoscopy (EGD) (04/05/20) History of colonoscopy (2015) History of lumpectomy of right breast (05/25/20) H/O dilation and curettage History of cholecystectomy (06/28/20) Family History Father History of COPD Substance use disorder Mother History of anxiety History of hypertension Mental health disorder Sister History of colon cancer, Onset Age: 48 History of ovarian cancer History of breast cancer, Onset Age: 42 Mental health disorder Daughter History of cerebral palsy Paternal Grandmother History of [place] (myocardial infarction) Maternal Grandfather History of [place] (myocardial infarction) Paternal Uncle History of throat cancer Paternal Aunt History of breast cancer Family/Other Bone cancer Family/Other Melanoma Social History Household Members: Spouse and Children Housing: House Alcohol intake: current Alcohol intake frequency: a few times a month Alcohol type: beer Patient Tobacco Use Status: Former Tobacco user Cigarette Packs Per Day: 1 e-Cigarette/Vaping Use: Currently Using Substance Use Type: Marijuana service: No Current occupational status: employed Sexual 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/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 Gender identity: Female Cognitive needs: No Hearing needs: No Vision needs: Yes Female Reproductive History Menstrual Age of Menarche: 13 Physical Exam Vital Signs: Last Vital Signs Pulse 70 07/22/23 09:03 BP 149/76 H 07/22/23 09:03 BMI result Body Mass Index 27.6 Results Reviewed Results Reviewed: ABDOMINAL CT SCAN 05/19/2023 FINDINGS: LUNG BASES: The visualized lung bases are unremarkable. LIVER, GALLBLADDER, AND BILIARY TREE: The liver is mildly decreased in attenuation. No focal hepatic lesion or biliary ductal dilatation is present. The gallbladder is surgically absent. PANCREAS: No ductal dilatation. SPLEEN: Not enlarged. Multiple complex septated cysts are present. The largest measures 2.0 x 2.5 cm in transverse dimension. No perisplenic free fluid. ADRENAL GLANDS: No adrenal masses. KIDNEYS AND URETERS: The kidneys are symmetric in size and enhancement. No hydronephrosis or perinephric stranding. BLADDER: Unremarkable. GASTROINTESTINAL TRACT: Wall thickening/submucosal edema of the transverse colon with prominence of the vasa recta and mild pericolonic inflammatory change. No small bowel obstruction. Appendix is within normal limits. ABDOMINAL WALL: No significant hernia is appreciated. LYMPH NODES: No bulky abdominal or pelvic lymphadenopathy. VASCULAR: Normal caliber abdominal aorta. PELVIC VISCERA: The uterus and adnexa are unremarkable. OSSEOUS STRUCTURES: L5-S1 spondylolysis and spondylolisthesis. Assessment & Plan Assessment & Plan (1) Acute colitis: Code(s): K52.9 - Noninfective gastroenteritis and colitis, unspecified (2) Family history of colorectal cancer: Code(s): Z80.0 - Family history of malignant neoplasm of digestive organs Plan Patient was seen in the ER in May and diagnosed with acute colitis. Patient no longer has any abdominal pain or discomfort. Patient denies melena, hematochezia, unintentional weight loss or ribbon like stools. Colonoscopy in 2019. Patient is very nervous reports that she last her sister in February to colorectal cancer at very young age. Patient will be sent for colonoscopy. Patient denies any issues with anesthesia in the past. No history of sleep apnea. Denies any cardiac or respiratory symptoms. Not on any anticoagulation medication. What to expect before during and after the procedure discussed with patient. Patient will also be sent to check CRP, vitamin D, B12 and folate. Discussed with patient the importance of good bowel prep. I will see patient after the procedure, sooner on as needed basis. Patient is agreeable to this plan and verbalizes understanding of instructions. She was given the opportunity to ask questions and all questions answered. Orders: Orders Vitamin B12 and Folate 07/22/23 R19.7 - Diarrhea, unspecified C Reactive Protein 07/22/23 K58.9 - Irritable bowel syndrome without diarrhea Vitamin D 25-OH (D2 and D3) 07/22/23 E55.9 - Vitamin D deficiency, unspecified Medications: New bisacodyl (Dulcolax (bisacodyl)) take 2 tabs at noon the day before your colonoscopy 10 mg (2 x 5 mg) PO ONCE 2 tabs 0RF 1 day Z12.11 - Encounter for screening for malignant neoplasm of colon polyethylene glycol 3350 (Miralax) As directed by gastroenterology department at [facility] 238 grams PO ONCE 238 grams 0RF Z12.11 - Encounter for screening for malignant neoplasm of colon Coding Level of Care Code New Pt Level 4 (00545) Diagnoses Acute colitis K52.9 Family history of colorectal cancer Z80.0 Time Spent (min) 45 Comment 30 minutes spent with patient and additional 15 minutes spent reviewing her records
[2023-07-22 09:03] VITALS: BP 149/76; PULSE 70; BMI 27.6
== END 2023-07-22 10:26 | disposition home or self-care (01) ==
PROVIDERS: PCP Internal Medicine; Visit Provider Nurse Practitioner Family
DX: K52.9 Noninfective gastroenteritis and colitis, unspecified (principal); Z80.0 Family history of malignant neoplasm of digestive organs
CPT/HCPCS: 99204

== ENCOUNTER 2023-07-22 08:54 | Outpatient (REF) | payer OTHER, SELFPAY ==
[2023-07-22 11:48] LABS: C Reactive Protein 0.58 mg/dL (< or = 0.50)
[2023-07-22 12:25] LABS: Folate 15.3 ng/mL (> or = 4.0); Vitamin B12 437 pg/mL (200-900)
[2023-07-26 15:07] LABS: Vitamin D 25-OH, D2 <4 ng/mL; Vitamin D 25-OH, D3 37 ng/mL; Vitamin D 25-OH, Total 37 ng/mL (30-100)
== END 2023-07-22 08:55 | disposition home or self-care (01) ==
LOC: HO.LAB 08:54
PROVIDERS: PCP Internal Medicine; Visit Provider Nurse Practitioner Family
DX: E55.9 Vitamin D deficiency, unspecified (principal); K52.9 Noninfective gastroenteritis and colitis, unspecified; Z80.0 Family history of malignant neoplasm of digestive organs
CPT/HCPCS: 36415; 82306; 82607; 82746; 86140

== ENCOUNTER 2023-08-25 11:11 | Outpatient (REF) | payer OTHER, SELFPAY ==
--- NOTE | ~2023-08-25 | XR_ITS ---
EXAMINATION: XR KNEE, LEFT XR KNEE AP STANDING CLINICAL INFORMATION: Pain. COMPARISON: None TECHNIQUE: Lateral and axial views of the left knee are submitted. AP bilateral standing view of the knees is submitted. FINDINGS: Bony alignment and mineralization are normal. No significant varus or valgus configuration is seen bilaterally. The bilateral lateral and medial joint space compartments are symmetric and well-maintained. The left patellofemoral compartment is well-maintained. There is minimal peripheral osteophyte formation of the lower articular surface of the patella. No fracture or dislocation is seen. There is a moderate joint effusion. No foreign body is seen. XR/XR knee standing BI IMPRESSION: 1. There is minimal osteoarthritic change of the left patellofemoral compartment. 2 there is a moderate left knee joint effusion. 3. The lateral and medial joint space compartment of the right knee are well-maintained. 4. No significant varus or valgus configuration is seen bilaterally.
--- NOTE | ~2023-08-25 | XR_ITS ---
EXAMINATION: XR KNEE, LEFT XR KNEE AP STANDING CLINICAL INFORMATION: Pain. COMPARISON: None TECHNIQUE: Lateral and axial views of the left knee are submitted. AP bilateral standing view of the knees is submitted. FINDINGS: Bony alignment and mineralization are normal. No significant varus or valgus configuration is seen bilaterally. The bilateral lateral and medial joint space compartments are symmetric and well-maintained. The left patellofemoral compartment is well-maintained. There is minimal peripheral osteophyte formation of the lower articular surface of the patella. No fracture or dislocation is seen. There is a moderate joint effusion. No foreign body is seen. XR/XR knee LT 2V IMPRESSION: 1. There is minimal osteoarthritic change of the left patellofemoral compartment. 2 there is a moderate left knee joint effusion. 3. The lateral and medial joint space compartment of the right knee are well-maintained. 4. No significant varus or valgus configuration is seen bilaterally.
== END 2023-08-25 11:12 | disposition home or self-care (01) ==
LOC: HO.HOSX 11:11
PROVIDERS: PCP Internal Medicine; Visit Provider Orthopaedic Surgery
DX: M23.92 Unspecified internal derangement of left knee (principal); M25.462 Effusion, left knee
CPT/HCPCS: 73560; 73565

== ENCOUNTER 2023-08-25 11:11 | Outpatient (AMB) | payer OTHER, SELFPAY ==
[2023-08-25 11:15] VITALS: BMI 27.5
--- NOTE | 2023-08-25 11:15 | MHC.OFFVIS ---
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 Patient reports that she has had ongoing for some time now, on 08/23 she reports that she was going down the stairs and felt a pop resulting in a fall. She is having pain and tenderness on the medial and posterior aspect of the left knee. She is wearing a knee brace which is mildly helpful. Denies numbness and tingling. She is taking Advil for the pain as well as ice application. 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 She complains of pain and swelling in her left knee, along with stiffness. She says she can walk with her knee locked in extension, but she has pain with WB activities and cannot bend her knee without pain. She also has pain with twisting activities. She says her pain had been present for ~1 month now, and worse with stairs. However on 08/23/23 she was walking and felt a painful pop in her knee. She has been icing her knee, which she says is helping her pain. 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 [facility] Medical History Acute colitis Acute colitis FH: melanoma BRCA gene mutation negative Anxiety COVID-19 delivery delivered Polyp of stomach Polyp of colon Breast cancer Surgical History Invasive ductal carcinoma of right breast (~05/25/20) History of section History of elbow surgery History of hand surgery History of oral surgery History of esophagogastroduodenoscopy (EGD) (04/05/20) History of colonoscopy (2015) History of lumpectomy of right breast (05/25/20) H/O dilation and curettage History of cholecystectomy (06/28/20) Family History Father History of COPD Substance use disorder Mother History of anxiety History of hypertension Mental health disorder Sister History of colon cancer, Onset Age: 48 History of ovarian cancer History of breast cancer, Onset Age: 42 Mental health disorder Daughter History of cerebral palsy Paternal Grandmother History of [place] (myocardial infarction) Maternal Grandfather History of [place] (myocardial infarction) Paternal Uncle History of throat cancer Paternal Aunt History of breast cancer Family/Other Bone cancer Family/Other Melanoma Social History (Updated 08/25/23 @ 11:20 by Leana Rai 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) Household Members: Spouse and Children Housing: House Alcohol intake: current Alcohol intake frequency: a few times a month Alcohol type: beer Patient Tobacco Use Status: Former Tobacco user Cigarette Packs Per Day: 1 e-Cigarette/Vaping Use: Currently Using Substance Use Type: Marijuana service: No Current occupational status: 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 Sexual 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/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 Gender identity: Female Cognitive needs: No Hearing needs: No Vision needs: Yes Female Reproductive History Menstrual Age of Menarche: 13 Review of Systems Const All systems reviewed & are unremarkable except as noted in HPI and below Physical Exam Vital Signs: BMI result Body Mass Index 27.5 Const General: no acute distress, alert and awake Orientation/consciousness: patient oriented x3 HEENT Head: Yes normocephalic and Yes atraumatic Eyes EOM: EOMs intact bilaterally Resp Effort & Inspection: normal respiratory effort and able to speak in complete sentences Cardio Jugular venous distension: no JVD Skin General skin exam: turgor normal Rashes: no rashes Neuro General: patient oriented x3 Extrem Other: Left Knee: Moderate effusion Mildly + medial vaughn's Full ROM Psych Appearance: grossly normal Affect: normal affect Attitude: cooperative Assessment & Plan Assessment & Plan (1) Internal derangement of left knee: Code(s): M23.92 - Unspecified internal derangement of left knee Plan: This is a 58 year old woman with left knee internal derangement & moderate effusion. She had pain for ~1 month which worsened ~2 days ago. She has pain with WB and twisting activities, and is managing her pain with ice. I discussed her diagnosis and recommend NSAIDs, RICE, and strengthening exercises. It is too soon to consider an MRI or injections. I recommend she follow up in 2 weeks, this can be done via telehealth. (2) Effusion, left knee: Code(s): M25.462 - Effusion, left knee Plan Scribed for Boom Calix MD by Rafael Rosas, medical imaging technician, on 08/25/23 at 11:35 AM, EST. Orders: Orders XR knee standing BI 08/25/23 M25.569 - Pain in unspecified knee XR knee LT 2V 08/25/23 M25.569 - Pain in unspecified knee Coding Level of Care Code New Pt Level 3 (66584) Diagnoses Internal derangement of left knee M23.92 Effusion, left knee M25.462
== END 2023-08-25 12:04 | disposition home or self-care (01) ==
PROVIDERS: PCP Internal Medicine; Visit Provider Orthopaedic Surgery
DX: M23.92 Unspecified internal derangement of left knee (principal); M25.462 Effusion, left knee
CPT/HCPCS: 99203

== ENCOUNTER 2023-09-08 09:07 | Outpatient (AMB) | payer OTHER, SELFPAY ==
[2023-09-08 09:10] VITALS: BMI 27.5
--- NOTE | 2023-09-08 09:10 | MHC.OFFVIS ---
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 Injured the knee falling down the stairs on 08/23/23, at that time it was too early to determine treatment. Patient reports that her knee remains painful, she has increased pain with walking, climbing stairs and gait initiation after prolonged sitting. Denies numbness and tingling. 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 She csays she [continues to have] pain and swelling in her left knee, along with stiffness. She says she can walk with her knee locked in extension, but she has pain with WB activities and cannot bend her knee without pain. She also has pain with twisting activities. She says her pain had been present for ~6 weeks now, and is [ ]improving She has been icing her knee, which she says is helping her pain, and taking NSAIDs. She has [ ]been working on at-home exercises. 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 [facility] Medical History Acute colitis Acute colitis FH: melanoma BRCA gene mutation negative Anxiety COVID-19 delivery delivered Polyp of stomach Polyp of colon Breast cancer Surgical History Invasive ductal carcinoma of right breast (~05/25/20) History of section History of elbow surgery History of hand surgery History of oral surgery History of esophagogastroduodenoscopy (EGD) (04/05/20) History of colonoscopy (2015) History of lumpectomy of right breast (05/25/20) H/O dilation and curettage History of cholecystectomy (06/28/20) Family History Father History of COPD Substance use disorder Mother History of anxiety History of hypertension Mental health disorder Sister History of colon cancer, Onset Age: 48 History of ovarian cancer History of breast cancer, Onset Age: 42 Mental health disorder Daughter History of cerebral palsy Paternal Grandmother History of [place] (myocardial infarction) Maternal Grandfather History of [place] (myocardial infarction) Paternal Uncle History of throat cancer Paternal Aunt History of breast cancer Family/Other Bone cancer Family/Other Melanoma Social History (Updated 08/25/23 @ 11:20 by Leana Rai [facility]) Household Members: Spouse and Children Housing: House Alcohol intake: current Alcohol intake frequency: a few times a month Alcohol type: beer Patient Tobacco Use Status: Former Tobacco user Cigarette Packs Per Day: 1 e-Cigarette/Vaping Use: Currently Using Substance Use Type: Marijuana service: No Current occupational status: 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 Sexual 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/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 Gender identity: Female Cognitive needs: No Hearing needs: No Vision needs: Yes Female Reproductive History Menstrual Age of Menarche: 13 Review of Systems Const All systems reviewed & are unremarkable except as noted in HPI and below Physical Exam Vital Signs: BMI result Body Mass Index 27.5 Const General: no acute distress, alert and awake Orientation/consciousness: patient oriented x3 HEENT Head: Yes normocephalic and Yes atraumatic Eyes EOM: EOMs intact bilaterally Resp Effort & Inspection: normal respiratory effort and able to speak in complete sentences Cardio Jugular venous distension: no JVD Skin General skin exam: turgor normal Rashes: no rashes Neuro General: patient oriented x3 Extrem Other: Left Knee: Moderate effusion Mildly + medial vaughn's Full ROM Psych Appearance: grossly normal Affect: normal affect Attitude: cooperative Office Procedures Joint Injection/Drain Joint Injection/Drain Details: Injected 1 mL of Decadron and 3 mL 1% lidocaine and 3 mL of 0.25% Marcaine. Site was prepped using aseptic technique. Patient tolerated the procedure well. Primary Site: left knee Approach Used: anterolateral Coding 41987 - Large joint Procedure code (CPT) selection complete Results Reviewed Results Reviewed: 09/08/23 09:27 BUPivacaine MPF 0.25 % [Sensorcaine-MPF 0.25% 10 ML] 10 ml .ROUTE .[facility]-MED ONE Lidocaine HCl 2 % MPF [Xylocaine 2 % MPF] 5 ml .ROUTE .[facility]-MED ONE dexAMETHasone sod phosphate [Decadron] 4 mg .ROUTE .[facility]-MED ONE Assessment & Plan Assessment & Plan (1) Internal derangement of left knee: Code(s): M23.92 - Unspecified internal derangement of left knee Plan: This is a 58 year old woman with left knee internal derangement & effusion, with ~6 weeks of pain which worsened after a fall on 08/23/23. I aspirated 50ml nl appearing joint fluid and injected knee. She has pain with WB and twisting activities, and is managing this with NSAIDs & RICE. I discussed her diagnosis and recommend NSAIDs, RICE, and strengthening exercises. I ordered an MRI . She will follow up when completes for review. (2) Effusion, left knee: Code(s): M25.462 - Effusion, left knee Plan Scribed for Boom Calix MD by Rafael Rosas, medical billing specialist, on 09/08/23 at 9:50 AM, EST. Orders: Orders MR knee LT wo con 09/08/23 M23.92 - Unspecified internal derangement of left knee, M25.462 - Effusion, left knee Coding Level of Care Code Est Pt Level 4 (63485) Diagnoses Internal derangement of left knee M23.92 Effusion, left knee M25.462 CPT Codes Coding - Large joint: 75177 - Large joint ([id number])
== END 2023-09-08 10:05 | disposition home or self-care (01) ==
PROVIDERS: PCP Internal Medicine; Visit Provider Orthopaedic Surgery
DX: M23.92 Unspecified internal derangement of left knee (principal); M25.462 Effusion, left knee; W10.8XXA Fall (on) (from) other stairs and steps, initial encounter
CPT/HCPCS: 20610; 99214

== ENCOUNTER → 2023-09-08 09:07 | Outpatient (BNVA) | payer OTHER, SELFPAY | PROVIDERS: PCP Internal Medicine; Visit Provider Orthopaedic Surgery | DX: M25.462 Effusion, left knee (principal); M23.92 Unspecified internal derangement of left knee; Z91.81 History of falling | CPT/HCPCS: 20610; J0665; J1100 ==

== ENCOUNTER 2023-09-11 08:28 | Day surgery (SDC) | payer OTHER, SELFPAY ==
[2023-09-09 16:02] VITALS: BMI 27.6
--- NOTE | 2023-09-10 12:04 | HO.ANESPROP2 ---
Documented by User: Delia Collins NP 09/10/23 12:05 HPI - Anesthesia Eval Consult details Narrative: 58yo F for Colonoscopy PMFSH Active Problems Active Problems: All Active Problems (Updated 08/25/23 @ 15:41 by Rafael Rosas) Effusion, left knee (Acute) Internal derangement of left knee (Acute) Invasive ductal carcinoma of right breast (Acute ~05/25/20) Menopausal vaginal dryness (Acute) Acute colitis (Acute) Anxiety (Acute) Dermal nevus of upper arm (Acute) FH: melanoma (Acute) Hot flashes (Acute) Vaginal dryness (Acute) Decreased libido (Acute) Uterine fibroid (Acute) Past Medical History Medical History Acute colitis Acute colitis FH: melanoma BRCA gene mutation negative Anxiety COVID-19 delivery delivered Polyp of stomach Polyp of colon Breast cancer Family History Family History Father History of COPD Substance use disorder Mother History of anxiety History of hypertension Mental health disorder Sister History of colon cancer, Onset Age: 48 History of ovarian cancer History of breast cancer, Onset Age: 42 Mental health disorder Daughter History of cerebral palsy Paternal Grandmother History of [place] (myocardial infarction) Maternal Grandfather History of [place] (myocardial infarction) Paternal Uncle History of throat cancer Paternal Aunt History of breast cancer Family/Other Bone cancer Family/Other Melanoma Surgical History Surgical History Invasive ductal carcinoma of right breast (~05/25/20) History of section History of elbow surgery History of hand surgery History of oral surgery History of esophagogastroduodenoscopy (EGD) (04/05/20) History of colonoscopy (2016) History of lumpectomy of right breast (05/25/20) H/O dilation and curettage History of cholecystectomy (06/28/20) Social History Social History Household Members: Spouse and Children Housing: House Alcohol intake: current Alcohol intake frequency: does not drink Alcohol type: beer Patient Tobacco Use Status: Former Tobacco user Cigarette Packs Per Day: 1 e-Cigarette/Vaping Use: Currently Using Substance Use Type: Marijuana Are you DNR?: No Advance Directives: No Advance Directives Information Provided: Yes Nutrition Risks: No Nutritional Risk service: No Current occupational status: 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 Sexual 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/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 Gender identity: Female Cognitive needs: No Hearing needs: No Vision needs: Yes Meds Allergies Allergy/AdvReac Type Severity Reaction Status Date / Time prednisone [PREDNISONE] Allergy Intermediate SHORTNESS Verified 07/22/23 09:08 OF BREATH, tachycardia Home Medications Medication Instructions Recorded Confirmed Last Taken Type Probiotic 500 mg PO DAILY 11/29/20 07/02/23 Unknown History ferrous sulfate 325 mg (65 mg 325 mg PO DAILY 11/29/20 07/02/23 09/08/23 History iron) tablet (iron) acetaminophen 500 mg capsule 500 mg PO Q6H PRN Pain 08/20/21 07/02/23 Unknown History escitalopram oxalate 10 mg tablet 10 mg PO DAILY 10/16/21 07/02/23 Unknown History (Lexapro) Vitamin D (with calcium) 1 tab PO DAILY 12/25/21 07/02/23 Unknown History Exam Exam Date and Time: September 10, 2023 1204 Height,Weight and Vital Signs: Height 5 ft 4 in Weight 73.028 kg Pertinent Lab Results Pertinent Lab Results: Laboratory Tests 07/02/23 08:26 WBC 4.8 Hgb 12.9 Hct 39.1 Plt Count 189 D Sodium 142 Potassium 4.7 D Chloride 108 Carbon Dioxide 27 BUN 14 Creatinine 0.70 Assessment and Plan Assessment Anesthesia Assessment: Chart Reviewed Documented by User: Chana Muir MD 09/11/23 10:06 PMFSH Active Problems Active Problems: 1All Active Problems (Updated 08/25/23 @ 15:41 by Rafael Rosas) Effusion, left knee (Acute) Internal derangement of left knee (Acute) Invasive ductal carcinoma of right breast (Acute ~05/25/20) Menopausal vaginal dryness (Acute) Acute colitis (Acute) Anxiety (Acute) Dermal nevus of upper arm (Acute) FH: melanoma (Acute) Hot flashes (Acute) Vaginal dryness (Acute) Decreased libido (Acute) Uterine fibroid (Acute) Past Medical History Medical History Acute colitis Acute colitis FH: melanoma BRCA gene mutation negative Anxiety COVID-19 delivery delivered Polyp of stomach Polyp of colon Breast cancer Family History Family History Father History of COPD Substance use disorder Mother History of anxiety History of hypertension Mental health disorder Sister History of colon cancer, Onset Age: 48 History of ovarian cancer History of breast cancer, Onset Age: 42 Mental health disorder Daughter History of cerebral palsy Paternal Grandmother History of [place] (myocardial infarction) Maternal Grandfather History of [place] (myocardial infarction) Paternal Uncle History of throat cancer Paternal Aunt History of breast cancer Family/Other Bone cancer Family/Other Melanoma Family history of problems with anesthesia: No Surgical History Surgical History Invasive ductal carcinoma of right breast (~05/25/20) History of section History of elbow surgery History of hand surgery History of oral surgery History of esophagogastroduodenoscopy (EGD) (04/05/20) History of colonoscopy (2015) History of lumpectomy of right breast (05/25/20) H/O dilation and curettage History of cholecystectomy (06/28/20) History of Problems with Anesthesia: Yes (PONV) Social History Social History Household Members: Spouse and Children Housing: House Alcohol intake: current Alcohol intake frequency: does not drink Alcohol type: beer Patient Tobacco Use Status: Former Tobacco user Cigarette Packs Per Day: 1 e-Cigarette/Vaping Use: Currently Using Substance Use Type: Marijuana Are you DNR?: No Advance Directives: No Advance Directives Information Provided: Yes Nutrition Risks: No Nutritional Risk service: No 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 occupational status: 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 Sexual 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/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 Gender identity: Female Cognitive needs: No Hearing needs: No Vision needs: Yes Meds Allergies Allergy/AdvReac Type Severity Reaction Status Date / Time prednisone [PREDNISONE] Allergy Intermediate SHORTNESS Verified 07/22/23 09:08 OF BREATH, tachycardia Home Medications Medication Instructions Recorded Confirmed Last Taken Type Probiotic 500 mg PO DAILY 11/29/20 07/02/23 Unknown History ferrous sulfate 325 mg (65 mg 325 mg PO DAILY 11/29/20 07/02/23 09/08/23 History iron) tablet (iron) acetaminophen 500 mg capsule 500 mg PO Q6H PRN Pain 08/20/21 07/02/23 Unknown History escitalopram oxalate 10 mg tablet 10 mg PO DAILY 10/16/21 07/02/23 Unknown History (Lexapro) Vitamin D (with calcium) 1 tab PO DAILY 12/25/21 07/02/23 Unknown History Exam Airway Mallampati Class: II TM Dist: >3cm Neck ROM: Full Loose/Missing/Broken Teeth: No Heart: RRR Lungs: CTA Assessment and Plan Final Anesthetic Review Family History of Problems with Anesthesia: No History of Problems with Anesthesia: Yes (PONV) NPO: Yes ASA Class: II Final Preanesthetic Review: Meds/Allgs Chart Reviewed, Consent Obtained/Reviewed and Anes Risks/Benef Reviewed Patient Risk: Low Procedure Risk: Low Anesthetic Plan Anesthetic Plan: MAC: Disposition: Standard PACU
[2023-09-11 08:38] VITALS: BP 128/77; PULSE 82; RESP 18; TEMP 36.6; O2SAT 97
[2023-09-11 08:45] VITALS: BMI 26.3
[2023-09-11] MEDS: Lactated Ringers 1,000 ML 100 ML IVCONT (08:50)
--- NOTE | 2023-09-11 09:16 | MHC.SHP ---
Pre-Procedural Eval Section A Date of Service: 09/11/23 Section B Chief Complaint: Noninfective gastroenteritis and colitis, unspecif Details of Present Illness: sistern-colon cancer Relevant Family History (Specify if Yes): Yes Relevant Social History: None Present Medications: see Short Stay Collaborative assessment Medical History: Significant History (Acute colitis FH: melanoma BRCA gene mutation negative Anxiety COVID-19 delivery delivered Polyp of stomach Polyp of colon Breast cancer) History of Previous Operations: Relevant previous surgery/procedure and date(s) (Invasive ductal carcinoma of right breast (~05/25/20) History of section History of elbow surgery History of hand surgery History of oral surgery History of esophagogastroduodenoscopy (EGD) (04/05/20) History of colonoscopy (2015) History of lumpectomy of right breast (05/25/20) H/O dilatio) Allergies: Allergies Allergy/AdvReac Type Severity Reaction Status Date / Time prednisone [PREDNISONE] Allergy Intermediate SHORTNESS Verified 07/22/23 09:08 OF BREATH, tachycardia Review of Systems Sugical H&P ROS: Negative: Constitution, Cardiovascular, Respiratory, Neurological, Psychiatric, Hem-Onc, Allergic/Immunologic, Gastrointestinal, Genitourinary, Musculoskeletal, Integumentary, Endocrine and Eyes/Ears/Nose/Throat Exam Surgical H&P Exam: Normal: HEENT, Normal: Heart, Normal: Lungs, Normal: Extremities, Normal: Abdomen, Normal: Skin and Normal: Neurological Plan Diagnosis/Plan: Unchanged I have reviewed the history and physical and performed a pertinent physical examination on my patient. No changes have occurred unless specified. Time Spent With Patient Time: Total time managing care of this patient today ____ minutes.
--- NOTE | 2023-09-11 09:55 | W.PM.OPN ---
Operative Note Operative Note Date of Service: 09/11/23 Narrative: Operative Information Procedure Description: Colonoscopy Indication: FH of colon cancer, hx of colitis Anesthesia: MAC COLONOSCOPY Instrument: Olympus variable stiffness pediatric scope 190L Colonoscopy Monitoring: Vital signs and clinical assessment, continuous EKG monitoring, Pulse oximetry, Carbon Dioxide monitoring and blood pressure monitoring were done throughout the procedure. Colon withdrawal time was 11 minutes. Procedure: The patient was placed in the left lateral decubitis position and pre-procedure medications were administered. After a digital rectal examination of the ano-rectum, the video colonoscope was inserted into the rectum and advanced through the colon to the cecum/TI. The colonoscope was slowly withdrawn in a retrograde panoramic fashion and the colon mucosa was carefully examined including a retroflexed view of the rectum. Findings and interventions are described below. Procedure Difficulty: easy Findings: Terminal Ileum-normal, bx taken Random bx taken from right,left and rectum Cecum:normal Ascending Colon: normal Transverse Colon -normal Descending Colon:normal Sigmoid Colon: normal Rectum: Retroflexion with small internal hemorrhoids, grade I Anorectum - normal Colon preparation: Martinez Bowel Preparation Scale Right colon; 2 Transverse colon: 2 Left colon; 2 (0 = Unprepared colon segment with mucosa not seen due to solid stool that cannot be cleared. 1 = Portion of mucosa of the colon segment seen, but other areas of the colon segment not well seen due to staining, residual stool and/or opaque liquid. 2 = Minor amount of residual staining, small fragments of stool and/or opaque liquid, but mucosa of colon segment seen well. 3 = Entire mucosa of colon segment seen well with no residual staining, small fragments of stool or opaque liquid) Impression and Post Procedure Diagnosis: internal hemorrhoids Plan: High fiber diet leaflet Avoid straining at stool, epsom salts and sitz bath, anusol supps or cream Repeat Colonoscopy in 5 years due to FH of CRC or earlier if clinically indicated Above findings were reviewed with the patient and relevant handouts were provided if indicated.
[2023-09-11 10:45] VITALS: BP 130/73; PULSE 78; RESP 18; TEMP 36.2; O2SAT 98
[2023-09-11 11:00] VITALS: BP 155/78; PULSE 80; RESP 16; TEMP 36.2; O2SAT 96
== END 2023-09-11 11:30 | disposition home or self-care (01) ==
PROVIDERS: PCP Internal Medicine; Visit Provider Internal Medicine Gastroenterology
PROC: 0DJD8ZZ Inspection of Lower Intestinal Tract, Via Natural or Artificial Opening Endoscopic (ICD-10-PCS; CPT 45378; principal; 2023-09-11 10:00)
DX: Z12.11 Encounter for screening for malignant neoplasm of colon (principal); Z80.0 Family history of malignant neoplasm of digestive organs; Z86.010 Personal history of colon polyps; K64.0 First degree hemorrhoids; K52.9 Noninfective gastroenteritis and colitis, unspecified; F41.9 Anxiety disorder, unspecified; F12.90 Cannabis use, unspecified, uncomplicated; Z85.3 Personal history of malignant neoplasm of breast; Z98.890 Other specified postprocedural states; Z88.8 Allergy status to other drugs, medicaments and biological substances; Z86.16 Personal history of COVID-19; Z87.891 Personal history of nicotine dependence; Z90.49 Acquired absence of other specified parts of digestive tract; Z79.899 Other long term (current) drug therapy
CPT/HCPCS: 45380; 88305

== ENCOUNTER → 2023-09-11 08:28 | Outpatient (BNV) | payer OTHER, SELFPAY | PROVIDERS: PCP Internal Medicine; Visit Provider Internal Medicine Gastroenterology | DX: Z12.11 Encounter for screening for malignant neoplasm of colon (principal); Z80.0 Family history of malignant neoplasm of digestive organs; Z87.19 Personal history of other diseases of the digestive system; K64.0 First degree hemorrhoids | CPT/HCPCS: 45380 ==

== ENCOUNTER 2023-09-15 15:46 | Outpatient (REF) | payer OTHER, SELFPAY ==
--- NOTE | ~2023-09-15 | MR_ITS ---
EXAMINATION: MR BREAST WITHOUT AND WITH CONTRAST, BILATERAL CLINICAL INFORMATION: Personal history of right breast cancer. Previous lumpectomy and radiation. 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 Sister diagnosed with breast cancer age 42. Malignant neoplasm of right female breast. COMPARISON: Portions of a previous MRI 07/26/2021. Mammography (nondiagnostic monitor review): 04/01/2023. TECHNIQUE: A 1.5 T system and a dedicated breast coil. T1-weighted sequences without fat-saturation were obtained prior to the administration of contrast. Fat-saturated T1 and T2-weighted sequences were also acquired. The patient received 7 mL of IV gadolinium-based contrast, Gadavist. Multiple sequential dynamic T1-weighted sequences were obtained through both breasts with fat-saturation. Subtracted images were reviewed. CAD postprocessing with 3-D reconstructions, maximum intensity projections and kinetic analysis was performed by the interpreting radiologist at an independent workstation and reviewed as a portion of this exam. FINDINGS: Amount of Remaining Fibroglandular Signal: There are scattered areas of fibroglandular tissue (ACR BI-RADS breast composition category B).* Background Parenchymal Enhancement: Minimal Symmetry of Background Enhancement: Symmetric RIGHT BREAST: There are no suspicious findings. Masses: There are no suspicious enhancing masses. Non-mass Enhancement: There is no suspicious non-mass enhancement. Focus: There are no suspicious enhancing foci. Non-enhancing Findings: Associated findings: Architectural distortion consistent with previous lumpectomy. Kinetic Curve Assessment: Initial Phase: There are no suspicious areas of color signal. Delayed Phase: There are no areas of washout kinetics. LEFT BREAST: There are no suspicious findings. Masses: There are no suspicious enhancing masses. Non-mass Enhancement: There is no suspicious non-mass enhancement. Focus: There are no suspicious enhancing foci. Non-enhancing Findings: Associated Findings: There are no suspicious associated findings. Kinetic Curve Assessment: Initial Phase: There are no areas of suspicious color signal. Delayed Phase: There are no areas of washout kinetics. The axillary lymph nodes are morphologically normal. No suspicious internal mammary lymph nodes are seen. No suspicious abnormality in the visualized portions of chest or abdomen. MR/MR breast BI wo/w con IMPRESSION: Evidence of right lumpectomy. No evidence of new or recurrent malignancy. No suspicious change when compared to 07/26/2021. ASSESSMENT: Right Breast: ACR BI-RADS 2: Benign finding. Left Breast: ACR BI-RADS 1: Negative examination. RECOMMENDATIONS: Continue screening.
--- NOTE | ~2023-09-15 | MR_ITS ---
EXAMINATION: MR KNEE WITHOUT CONTRAST, LEFT CLINICAL INFORMATION: Left knee pain. COMPARISON: Radiographs 08/25/2023. TECHNIQUE: MRI of the knee without contrast was performed using routine sequences on a high-field scanner. FINDINGS: MENISCI: Medial Meniscus: Complete tear/avulsion at the root of the posterior horn. The root attachment is displaced approximately 4 mm. Lateral Meniscus: Intact LIGAMENTS: Cruciate: Severe mucoid degeneration of the ACL with reactive marrow changes at the tibial insertion. There may be some frayed fibers projecting anterior to the distal ligament. The posterior cruciate ligament is intact, mildly degenerated. Collateral: Intact EXTENSOR MECHANISM: Intact. ARTICULAR CARTILAGE/BONE: Patellofemoral Compartment: Cartilage thinning and surface irregularity throughout the lateral patellar facet with full-thickness loss inferiorly. Patella appears subluxed and tilted laterally. Medial Compartment: Cartilage thinning and surface irregularity along the lateral aspect of the weightbearing femoral condyle. Lateral Compartment: Mild marrow edema at the posterior aspect of the tibia could represent a contusion or may be degenerative. JOINT FLUID AND BURSAE: Moderate joint effusion with diffuse synovitis. MR/MR knee LT wo con IMPRESSION: 1. Complete tear/avulsion at the root of the posterior horn of the medial meniscus. 2. Severe mucoid degeneration of the ACL. 3. Moderate patellofemoral and mild medial/lateral compartment osteoarthritis. Moderate joint effusion with diffuse synovitis.
[2023-09-15] MEDS: gadobutroL 7.5 ML VIAL IVPUSH (17:11)
== END 2023-09-15 15:47 | disposition home or self-care (01) ==
LOC: HO.MRI 15:46
PROVIDERS: PCP Internal Medicine; Visit Provider Surgery
DX: M25.462 Effusion, left knee (principal); M23.92 Unspecified internal derangement of left knee; C50.911 Malignant neoplasm of unspecified site of right female breast
CPT/HCPCS: 73721; 77049; A9585

== ENCOUNTER 2023-09-19 09:26 | Outpatient (AMB) | payer OTHER, SELFPAY ==
--- NOTE | 2023-09-19 09:27 | MHC.OFFVIS ---
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 Patient reports that the knee is feeling awful. 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 She says she continues to have pain and swelling in her left knee, along with stiffness. She says her knee is feeling awful . She says she can walk with her knee locked in extension, but she has pain with WB activities and cannot bend her knee without pain. She also has pain with twisting activities and occasionally gets a shooting pain down her leg. She has been icing her knee, with some relief, and taking NSAIDs. She has been working on at-home exercises. 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 [facility] Medical History Acute colitis Acute colitis FH: melanoma BRCA gene mutation negative Anxiety COVID-19 delivery delivered Polyp of stomach Polyp of colon Breast cancer Surgical History Invasive ductal carcinoma of right breast (~05/25/20) History of section History of elbow surgery History of hand surgery History of oral surgery History of esophagogastroduodenoscopy (EGD) (04/05/20) History of colonoscopy (2016) History of lumpectomy of right breast (05/25/20) H/O dilation and curettage History of cholecystectomy (06/28/20) Family History Father History of COPD Substance use disorder Mother History of anxiety History of hypertension Mental health disorder Sister History of colon cancer, Onset Age: 48 History of ovarian cancer History of breast cancer, Onset Age: 42 Mental health disorder Daughter History of cerebral palsy Paternal Grandmother History of [place] (myocardial infarction) Maternal Grandfather History of [place] (myocardial infarction) Paternal Uncle History of throat cancer Paternal Aunt History of breast cancer Family/Other Bone cancer Family/Other Melanoma Social History Household Members: Spouse and Children Housing: House Alcohol intake: current Alcohol intake frequency: does not drink Alcohol type: beer Patient Tobacco Use Status: Former Tobacco user Cigarette Packs Per Day: 1 e-Cigarette/Vaping Use: Currently Using Substance Use Type: Marijuana service: No Current occupational status: 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 Sexual 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/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 Gender identity: Female Cognitive needs: No Hearing needs: No Vision needs: Yes Female Reproductive History Menstrual Age of Menarche: 13 Review of Systems Const All systems reviewed & are unremarkable except as noted in HPI and below Physical Exam Const General: no acute distress, alert and awake Orientation/consciousness: patient oriented x3 HEENT Head: Yes normocephalic and Yes atraumatic Eyes EOM: EOMs intact bilaterally Resp Effort & Inspection: normal respiratory effort and able to speak in complete sentences Cardio Jugular venous distension: no JVD Skin General skin exam: turgor normal Rashes: no rashes Neuro General: patient oriented x3 Extrem Other: Left Knee: Moderate effusion Mildly + medial vaughn's Full ROM Psych Appearance: grossly normal Affect: normal affect Attitude: cooperative Results Reviewed Results Reviewed: I personally reviewed relevant radiographs & MR images 1. Complete tear/avulsion at the root of the posterior horn of the medial meniscus. 2. Severe mucoid degeneration of the ACL. 3. Moderate patellofemoral and mild medial/lateral compartment osteoarthritis. Moderate joint effusion with diffuse synovitis. 1. There is minimal osteoarthritic change of the left patellofemoral compartment. 2 there is a moderate left knee joint effusion. 3. The lateral and medial joint space compartment of the right knee are well-maintained. 4. No significant varus or valgus configuration is seen bilaterally. Assessment & Plan Assessment & Plan (1) Tear of medial meniscus of left knee: Code(s): S83.242A - Other tear of medial meniscus, current injury, left knee, initial encounter Plan: This is a 58 year old woman with a complete medial mensiscus root tear & effusion of the left knee, in a setting of mild OA, S/P fall on 08/23/23. She has pain with WB and twisting activities, and is managing this with NSAIDs & RICE. Her pain is not improving with conservative treatment. She is considering surgery at this time as she is the primary caregiver for her adult daughter, who has Cerebral palsy. I discussed her diagnosis and and treatment options. I recommend she work on quad strengthening exercises, RICE, & NSAIDs. She is considering surgery for perhaps sometime in the new year, but will speak with her about this. (2) Effusion, left knee: Code(s): M25.462 - Effusion, left knee Plan Scribed for Boom Calix MD by Rafael Rosas, registered medical transcriptionist, on 09/19/23 at 9:45 AM, EST. Coding Level of Care Code Est Pt Level 4 (76254) Diagnoses Tear of medial meniscus of left knee S83.242A Effusion, left knee M25.462
== END 2023-09-19 10:11 | disposition home or self-care (01) ==
PROVIDERS: PCP Internal Medicine; Visit Provider Orthopaedic Surgery
DX: S83.242A Other tear of medial meniscus, current injury, left knee, initial encounter (principal); M25.462 Effusion, left knee
CPT/HCPCS: 99214

== ENCOUNTER → 2023-09-19 09:26 | Outpatient (BNVA) | payer OTHER, SELFPAY | PROVIDERS: PCP Internal Medicine; Visit Provider Orthopaedic Surgery ==

== ENCOUNTER 2023-09-23 09:50 | Outpatient (AMB) | payer OTHER, SELFPAY ==
--- NOTE | 2023-09-23 10:02 | A.OFFVIS_ITS ---
Intake Vital Signs 09/23/23 10:03 Height 5 ft 4 in Weight 158 lb 11.725 oz BMI 27.2 BP 140/79 H Blood Pressure Location Lt brachial Position Sitting Pulse 74 Intake Visit Reasons: S/P [place]; Dr. Bernard Intake Note: Simon presents in the office as a follow up colonoscopy. CC: She states that she is not having any concerns since her procedure. Allergies prednisone [PREDNISONE] Allergy (Intermediate, Verified 07/22/23 09:08) SHORTNESS OF BREATH, tachycardia HPI S/P [place]; Dr. Bernard HPI Details LAST VISIT Acute colitis Family history of colorectal cancer Plan Patient was seen in the ER in May and diagnosed with acute colitis. Patient no longer has any abdominal pain or discomfort. Patient denies melena, hematochezia, unintentional weight loss or ribbon like stools. Colonoscopy in 2019. Patient is very nervous reports that she last her sister in February to colorectal cancer at very young age. Patient will be sent for colonoscopy. Patient denies any issues with anesthesia in the past. No history of sleep apnea. Denies any cardiac or respiratory symptoms. Not on any anticoagulation medication. What to expect before during and after the procedure discussed with patient. Patient will also be sent to check CRP, vitamin D, B12 and folate. Discussed with patient the importance of good bowel prep. I will see patient after the procedure, sooner on as needed basis. Patient is agreeable to this plan and verbalizes understanding of instructions. She was given the opportunity to ask questions and all questions answered. Orders Orders Vitamin B12 and Folate 07/22/23 R19.7 C Reactive Protein 07/22/23 K58.9 Vitamin D 25-OH (D2 and D3) 07/22/23 E55.9 Medications New bisacodyl (Dulcolax (bisacodyl)) take 2 tabs at noon the day before your colonoscopy 10 mg (2 x 5 mg) PO ONCE 2 tabs 0RF 1 da y Z12.11 polyethylene glycol 3350 (Miralax) As directed by gastroenterology department at [facility] 238 grams PO ONCE 238 grams 0RF Z12.11 COLONOSCOPY Findings: Terminal Ileum-normal, bx taken Random bx taken from right,left and rectum Cecum:normal Ascending Colon: normal Transverse Colon -normal Descending Colon:normal Sigmoid Colon: normal Rectum: Retroflexion with small internal hemorrhoids, grade I Anorectum - normal Colon preparation: [place] Bowel Preparation Scale Right colon; 2 Transverse colon: 2 Left colon; 2 (0 = Unprepared colon segment with mucos a not seen due to solid stool that cannot be cleared. 1 = Portion of mucosa of the colon segme nt seen, but other areas of the colon segment not well seen due to staining, residual stool and/or opaque liquid. 2 = Minor amount of residual staining, s mall fragments of stool and/or opaque liquid, but mucosa of colon segment seen well. 3 = Entire mucosa of colon segment seen well with no residual staining, small fragments of stool or opaque liquid) Impression and Post Procedure Diagnosis: internal hemorrhoids Plan: High fiber diet leaflet Avoid straining at stool, epsom salts and sitz bath, anusol supps or cream Repeat Colonoscopy in 5 years due to FH of CRC or earlier if clinically indicated TODAY'S VISIT Patient is here today for follow-up and to discuss colonoscopy results. Patient denies any ill effects from prep, anesthesia or procedure itself. Patient states that she has been doing well. Denies any melena, hematochezia, unintentional weight loss or ribbon like stools. Patient denies any dyspepsia, dysphagia or odynophagia. Patient reports to have a good appetite. Colonoscopy results discussed with patient. Patient had no polyps, however due to family history of CRC patient will return for colonoscopy in 5 years, sooner if clinically necessary.. [facility] Medical History Acute colitis Acute colitis FH: melanoma BRCA gene mutation negative Anxiety COVID-19 delivery delivered Polyp of stomach Polyp of colon Breast cancer Surgical History Invasive ductal carcinoma of right breast (~05/25/20) History of section History of elbow surgery History of hand surgery History of oral surgery History of esophagogastroduodenoscopy (EGD) (04/05/20) History of colonoscopy (2015) History of lumpectomy of right breast (05/25/20) H/O dilation and curettage History of cholecystectomy (06/28/20) Family History Father History of COPD Substance use disorder Mother History of anxiety History of hypertension Mental health disorder Sister History of colon cancer, Onset Age: 48 History of ovarian cancer History of breast cancer, Onset Age: 42 Mental health disorder Daughter History of cerebral palsy Paternal Grandmother History of [place] (myocardial infarction) Maternal Grandfather History of [place] (myocardial infarction) Paternal Uncle History of throat cancer Paternal Aunt History of breast cancer Family/Other Bone cancer Family/Other Melanoma Social History Household Members: Spouse and Children Housing: House Alcohol intake: current Alcohol intake frequency: does not drink Alcohol type: beer Patient Tobacco Use Status: Former Tobacco user Cigarette Packs Per Day: 1 e-Cigarette/Vaping Use: Currently Using Substance Use Type: Marijuana service: No Current occupational status: 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 Sexual 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/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 Gender identity: Female Cognitive needs: No Hearing needs: No Vision needs: Yes Female Reproductive History Menstrual Age of Menarche: 13 Review of Systems Const Denies weight gain and Denies weight loss ENT Reports no additional complaints, Denies dysphagia and Denies odynophagia Card Reports no additional complaints Resp Reports no additional complaints GI Denies abdominal pain, Denies belching, Denies melena, Denies bloating, Denies change in bowel habits, Denies dysphagia, Denies excessive flatus, Denies dyspepsia, Denies heartburn, Denies diarrhea, Denies loose stools, Denies nausea, Denies odynophagia and Denies vomiting Musc Reports no additional complaints Neuro Reports no additional complaints Psych Reports no additional complaints Endo Reports no additional complaints Physical Exam Vital Signs: Last Vital Signs Pulse 74 09/23/23 10:03 BP 140/79 H 09/23/23 10:03 BMI result Body Mass Index 27.2 Const General: healthy appearing, no acute distress and well developed Nutritional Appearance: well nourished Orientation/consciousness: patient oriented x3 HEENT Head: Yes normal to inspection, Yes normocephalic and Yes atraumatic Face and sinus: Yes normal facial exam Mouth: Normal oral and palatal mucosa present Throat: Yes posterior oropharynx normal, Yes tonsils normal and Yes uvula midline Eyes General: appearance normal, both eyes and all related structures Neck Neck: Yes normal visual inspection, Yes full ROM and Yes trachea midline Thyroid: Thyroid normal Resp Effort & Inspection: normal respiratory effort, able to speak in complete sentences, no tracheal deviation and symmetric chest movement Auscultation: clear to auscultation bilaterally Cardio Rate: regular rate Heart sounds: S1 normal heart sound present and S2 normal heart sound present GI Inspection: Yes normal to inspection and No distended Palpation (GI): Soft to palpation, not firm, nontender and No hepatosplenomegaly present Auscultation: normal bowel sounds General: Yes no CVA tenderness Back/Spine/Pelvis Back: no CVA tenderness Skin General skin exam: elasticity normal, turgor normal and dry skin Neuro General: patient oriented x3 Psych Appearance: grossly normal Mental Status: mental status grossly normal Affect: normal affect Thought content: Normal thought content present Assessment & Plan Assessment & Plan (1) Family history of colorectal cancer: Code(s): Z80.0 - Family history of malignant neoplasm of digestive organs (2) Status post colonoscopy: Code(s): Z98.890 - Other specified postprocedural states Plan Patient will return for colorectal screening in 5 years, sooner if clinically necessary. Patient was encouraged to increase fiber in her diet. Patient will return to our office on as-needed basis. She is agreeable to this plan and verbalizes understanding of instructions. She was given the opportunity to ask questions and all questions answered. Thank you for allowing me to participate in her care Coding Level of Care Code Est Pt Level 3 (81061) Diagnoses Family history of colorectal cancer Z80.0 Status post colonoscopy Z98.890 Time Spent (min) 25 Comment 15 minutes spent with patient and additional 10 minutes spent reviewing her records
[2023-09-23 10:03] VITALS: BP 140/79; PULSE 74; BMI 27.2
== END 2023-09-23 11:07 | disposition home or self-care (01) ==
PROVIDERS: PCP Internal Medicine; Visit Provider Nurse Practitioner Family
DX: Z80.0 Family history of malignant neoplasm of digestive organs (principal); Z98.890 Other specified postprocedural states
CPT/HCPCS: 99213

== ENCOUNTER → 2023-09-23 09:50 | Outpatient (BNVA) | payer OTHER, SELFPAY | PROVIDERS: PCP Internal Medicine; Visit Provider Nurse Practitioner Family ==

== ENCOUNTER → 2023-11-27 09:26 | Outpatient (BNVA) | payer OTHER, SELFPAY | PROVIDERS: PCP Internal Medicine; Visit Provider Physician Assistant ==

== ENCOUNTER 2023-12-03 07:06 | Day surgery (SDC) | payer OTHER, SELFPAY ==
[2023-12-01 06:50] VITALS: BMI 27.5
--- NOTE | 2023-12-02 09:04 | P.CONAN_ITS ---
HPI - Anesthesia Eval Consult details Narrative: 58yo F for Left Knee Arthroscopy with meniscus root repair s/p colo 09/2023 with MAC ON LICENSE OF [facility] Active Problems Active Problems: All Active Problems (Updated 09/19/23 @ 09:37 by Rafael Rosas) Tear of medial meniscus of left knee (Acute) Effusion, left knee (Acute) Internal derangement of left knee (Acute) Invasive ductal carcinoma of right breast (Acute ~05/25/20) Menopausal vaginal dryness (Acute) Acute colitis (Acute) Anxiety (Acute) Dermal nevus of upper arm (Acute) FH: melanoma (Acute) Hot flashes (Acute) Vaginal dryness (Acute) Decreased libido (Acute) Uterine fibroid (Acute) Past Medical History Medical History Acute colitis Acute colitis FH: melanoma BRCA gene mutation negative Anxiety COVID-19 delivery delivered Polyp of stomach Polyp of colon Breast cancer Family History Family History Father History of COPD Substance use disorder Mother History of anxiety History of hypertension Mental health disorder Sister History of colon cancer, Onset Age: 48 History of ovarian cancer History of breast cancer, Onset Age: 42 Mental health disorder Daughter History of cerebral palsy Paternal Grandmother History of [place] (myocardial infarction) Maternal Grandfather History of [place] (myocardial infarction) Paternal Uncle History of throat cancer Paternal Aunt History of breast cancer Family/Other Bone cancer Family/Other Melanoma Family history of problems with anesthesia: No Surgical History Surgical History Invasive ductal carcinoma of right breast (~05/25/20) History of section History of elbow surgery History of hand surgery History of oral surgery History of esophagogastroduodenoscopy (EGD) (04/05/20) History of colonoscopy (2016) History of lumpectomy of right breast (05/25/20) H/O dilation and curettage History of cholecystectomy (06/28/20) History of Problems with Anesthesia: Yes (PONV) Social History Social History Household Members: Spouse and Children Housing: House Alcohol intake: current Alcohol intake frequency: holidays/special occasions only Alcohol type: beer Patient Tobacco Use Status: Former Tobacco user Cigarette Packs Per Day: 1 e-Cigarette/Vaping Use: Currently Using Use of substances other than those prescribed or required for medical reasons: Yes Substance Use Type: Marijuana Are you DNR?: No Advance Directives: No Advance Directives Information Provided: Yes service: No 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 occupational status: 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 Sexual 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/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 Gender identity: Female Cognitive needs: No Hearing needs: No Vision needs: Yes Meds Allergies Allergy/AdvReac Type Severity Reaction Status Date / Time prednisone [PREDNISONE] Allergy Intermediate SHORTNESS Verified 11/27/23 09:27 OF BREATH, tachycardia Home Medications Medication Instructions Recorded Confirmed Last Taken Type Probiotic 500 mg PO DAILY 11/29/20 07/02/23 Unknown History ferrous sulfate 325 mg (65 mg 325 mg PO DAILY 11/29/20 07/02/23 09/08/23 History iron) tablet (iron) acetaminophen 500 mg capsule 500 mg PO Q6H PRN Pain 08/20/21 07/02/23 Unknown History escitalopram oxalate 10 mg tablet 10 mg PO DAILY 10/16/21 07/02/23 Unknown History (Lexapro) Vitamin D (with calcium) 1 tab PO DAILY 12/25/21 07/02/23 Unknown History Exam Height,Weight and Vital Signs: Height 5 ft 4 in Weight 72.575 kg Assessment and Plan Assessment Anesthesia Assessment: Chart Reviewed Final Anesthetic Review Family History of Problems with Anesthesia: No History of Problems with Anesthesia: Yes (PONV)
[2023-12-03] VITALS (15 sets, daily range): BP systolic 132–168; BP diastolic 75–96; PULSE 9–105; RESP 8–16; TEMP 36.3–36.6; O2SAT 90–99; BMI 28.2
--- NOTE | 2023-12-03 07:36 | MHC.SHP ---
Pre-Procedural Eval Section A - 24 Hr Update-Section A only Date of Service: 12/03/23 The patient is an INPATIENT: No Changes since office visit: No Cold of Flu in the past 2 weeks, No New Medical Problems, No Changes in Medication and No Patient answered all questions The patient has been examined within 24 hours of the surgical procedure. The History & Physical has been completed within 30 days and I have reviewed it.: Yes Section B - Complete if H&P > 30 days Chief Complaint: Other tear of medial meniscus, current injury, lef Allergies: Allergies Allergy/AdvReac Type Severity Reaction Status Date / Time prednisone [PREDNISONE] Allergy Intermediate SHORTNESS Verified 11/27/23 09:27 OF BREATH, tachycardia Plan I have reviewed the history and physical and performed a pertinent physical examination on my patient. No changes have occurred unless specified. Time Spent With Patient Time: Total time managing care of this patient today ____ minutes.
[2023-12-03] MEDS: Lactated Ringers 1,000 ML 100 ML IVCONT (07:55)
--- NOTE | 2023-12-03 10:01 | P.CONAN_ITS ---
[facility] Active Problems Active Problems: All Active Problems (Updated 09/19/23 @ 09:37 by Rafael Rosas) Tear of medial meniscus of left knee (Acute) Effusion, left knee (Acute) Internal derangement of left knee (Acute) Invasive ductal carcinoma of right breast (Acute ~05/25/20) Menopausal vaginal dryness (Acute) Acute colitis (Acute) Anxiety (Acute) Dermal nevus of upper arm (Acute) FH: melanoma (Acute) Hot flashes (Acute) Vaginal dryness (Acute) Decreased libido (Acute) Uterine fibroid (Acute) Past Medical History Medical History Acute colitis Acute colitis FH: melanoma BRCA gene mutation negative Anxiety COVID-19 delivery delivered Polyp of stomach Polyp of colon Breast cancer Family History Family History Father History of COPD Substance use disorder Mother History of anxiety History of hypertension Mental health disorder Sister History of colon cancer, Onset Age: 48 History of ovarian cancer History of breast cancer, Onset Age: 42 Mental health disorder Daughter History of cerebral palsy Paternal Grandmother History of [place] (myocardial infarction) Maternal Grandfather History of [place] (myocardial infarction) Paternal Uncle History of throat cancer Paternal Aunt History of breast cancer Family/Other Bone cancer Family/Other Melanoma Family history of problems with anesthesia: No Surgical History Surgical History Invasive ductal carcinoma of right breast (~05/25/20) History of section History of elbow surgery History of hand surgery History of oral surgery History of esophagogastroduodenoscopy (EGD) (04/05/20) History of colonoscopy (2015) History of lumpectomy of right breast (05/25/20) H/O dilation and curettage History of cholecystectomy (06/28/20) History of Problems with Anesthesia: Yes (PONV) Social History Social History Household Members: Spouse and Children Housing: House Alcohol intake: current Alcohol intake frequency: holidays/special occasions only Alcohol type: beer Patient Tobacco Use Status: Former Tobacco user Cigarette Packs Per Day: 1 e-Cigarette/Vaping Use: Currently Using Use of substances other than those prescribed or required for medical reasons: Yes Substance Use Type: Marijuana Are you DNR?: No Advance Directives: No Advance Directives Information Provided: Yes service: No 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 occupational status: 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 Sexual 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/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 Gender identity: Female Cognitive needs: No Hearing needs: No Vision needs: Yes Meds Allergies Allergy/AdvReac Type Severity Reaction Status Date / Time prednisone [PREDNISONE] Allergy Intermediate SHORTNESS Verified 11/27/23 09:27 OF BREATH, tachycardia Active Medications: Current Medications Lactated Ringer's (Lr) 1,000 mls @ 100 mls/hr IVCONT .Q10H MARY Last Admin: 12/03/23 07:55 Dose: 100 mls/hr Home Medications Medication Instructions Recorded Confirmed Last Taken Type Probiotic 500 mg PO DAILY 11/29/20 07/02/23 Unknown History ferrous sulfate 325 mg (65 mg 325 mg PO DAILY 11/29/20 07/02/23 09/08/23 History iron) tablet (iron) acetaminophen 500 mg capsule 500 mg PO Q6H PRN Pain 08/20/21 07/02/23 Unknown History escitalopram oxalate 10 mg tablet 10 mg PO DAILY 10/16/21 07/02/23 Unknown History (Lexapro) Vitamin D (with calcium) 1 tab PO DAILY 12/25/21 07/02/23 Unknown History Exam Height,Weight and Vital Signs: Height 5 ft 4 in Weight 74.559 kg Last Vital Signs Temp 97.8 F 12/03/23 07:44 Pulse 84 12/03/23 07:44 Resp 16 12/03/23 07:44 BP 132/79 12/03/23 07:44 Pulse Ox 96 12/03/23 07:44 O2 Del Method Room Air 12/03/23 07:44 Airway Mallampati Class: II TM Dist: >3cm Neck ROM: Full Heart: RRR Lungs: CTA Assessment and Plan Assessment Anesthesia Assessment: Anesthesia Plan Discussed Final Anesthetic Review Family History of Problems with Anesthesia: No History of Problems with Anesthesia: Yes (PONV) NPO: Yes ASA Class: II Final Preanesthetic Review: Meds/Allgs Chart Reviewed, Consent Obtained/Reviewed and Anes Risks/Benef Reviewed Patient Risk: Low Procedure Risk: Low Anesthetic Plan Anesthetic Plan: GA Disposition: Standard PACU
--- NOTE | 2023-12-03 11:35 | PM.OP ---
Brief Operative Note Date of Service: 12/03/23 Pre-op diagnosis: Left knee medial meniscal root tear Post-op diagnosis: other (1) same 2) OA) Procedure: Repair medial meniscal root Chondroplasty Implants: [employer] Footprint x1 Surgeon: Boom Calix MD Anesthesia: GETA and regional Was an Personal Shopper used for this Procedure?: Yes Personal Shopper: Silvina Sotelo Estimated blood loss (mL): 10 Tourniquet time (min): 45 IV fluids (mL): 1,000 Pathology: none sent Condition: stable Disposition: PACU
[2023-12-03] MEDS: oxyCODONE HCl Immed Release 5 MG TABLET PO (11:46)
[2023-12-03] MEDS: fentaNYL citrate/PF 100 MCG/2 ML VIAL 25 MCG IVPUSH ×4 (11:48→12:17)
--- NOTE | 2023-12-03 14:51 | HO.POSTANES ---
Post Anesthesia Evaluation Post Anesthesia Evaluation Date of Service: 12/03/23 Vital Signs: Vital Signs Temp Pulse Resp BP Pulse Ox O2 Del Method O2 Flow Rate 12/03/23 12:24 97.4 F 103 H 16 149/75 H 97 Room Air 12/03/23 12:19 105 H 16 156/79 H 95 Room Air 12/03/23 12:17 16 12/03/23 12:14 91 16 149/81 H 96 Room Air 12/03/23 12:07 16 12/03/23 11:59 96 13 159/83 H 99 Nasal Cannula with ETCO2 3 12/03/23 11:55 14 12/03/23 11:54 91 14 157/84 H 97 Nasal Cannula with ETCO2 3 12/03/23 11:49 101 H 14 154/93 H 98 Nasal Cannula with ETCO2 3 12/03/23 11:48 14 12/03/23 11:39 9 L 10 L 163/96 H 97 Nasal Cannula with ETCO2 3 12/03/23 11:34 86 8 L 165/96 H 95 Nasal Cannula with ETCO2 3 12/03/23 11:29 89 16 168/93 H 90 L Room Air 12/03/23 11:24 97.7 F 105 H 16 157/87 H 97 Room Air 12/03/23 07:44 97.8 F 84 16 132/79 96 Room Air Anesthesia: General LMA Mental Status: Awake Pain Control: Satisfactory Nausea/Vomiting: None Hydration: Adequate Anesthesia-Related Issues: No Anes. Related Issues
--- NOTE | 2023-12-08 09:19 | W.PM.OPN ---
Operative Note Operative Note Date of Service: 12/03/23 Narrative: Date of Service: 12/03/23 Pre-op diagnosis: Left knee medial meniscal root tear Post-op diagnosis: other (1) same 2) OA) Procedure: Repair medial meniscal root Chondroplasty Implants: [employer] x1 Surgeon: Boom Calix MD Anesthesia: GETA and regional Was an Integration Software Developer used for this Procedure?: Yes Integration Software Developer: Silvina Sotelo Estimated blood loss (mL): 10 Tourniquet time (min): 45 IV fluids (mL): 1,000 Pathology: none sent Condition: stable Disposition: PACU Procedure in detail: Patient was brought to the operating room placed supine on the arthroscopic table and prepped and draped in standard sterile fashion. A time-out was called to identify proper site proper procedure proper surgeon and IV antibiotics per weight were administered. I began by exsanguinating the limb and insufflating tourniquet to 300 mm Hg. Then made a standard anterolateral stab incision. The knee was insufflated with water and 30 degree arthroscope was placed. There was grade 3 fibrillations of the patella. The suprapatellar pouch and the gutters were clean. I descended into the medial compartment where I made my medial portal under direct visualization. There was a complete tear of the root at its insertion with an otherwise normal meniscus. There were grade 1 changes in the tibial plateau. I used shaver to perform a limited chondroplasty. I then used a suture passer to pass two suture tapes through the free edge of the medial meniscus. I then used a ringed currette to debride the root insertion site. I then drilled a spin through the anterolateral tibia through the footprint using the root repair guide set at 55deg. I passed a nitinol loop through this and retrieved the two limbs of suture tape attached to the meniscus. I then brought the meniscus to its insertion site while flexed at 30 deg. The suture was then dunked into a footprint anchor anterolateral to the tibial tubercle. The rpepair was anatomic and I was satisfied. The ACL was examined and found to be intact and the lateral compartment also was without the need for intervention. I then removed all instrumentation and closed the portals with skin glue. 25 mL of 2% Marcaine with epinephrine was injected into the joint and the surrounding soft tissues. Patient was then placed in sterile dressing extubated brought recovery room stable condition. There were no known complications.
== END 2023-12-03 13:36 | disposition home or self-care (01) ==
LOC: HO.SSS 07:07
PROVIDERS: PCP Internal Medicine; Visit Provider Orthopaedic Surgery
PROC: (CPT 29870; principal; 2023-12-03 09:10)
DX: S83.242A Other tear of medial meniscus, current injury, left knee, initial encounter (principal); M17.12 Unilateral primary osteoarthritis, left knee; M25.462 Effusion, left knee; F41.9 Anxiety disorder, unspecified; C50.911 Malignant neoplasm of unspecified site of right female breast; Z79.811 Long term (current) use of aromatase inhibitors; Z79.1 Long term (current) use of non-steroidal anti-inflammatories (NSAID); Z88.8 Allergy status to other drugs, medicaments and biological substances; Z98.890 Other specified postprocedural states; Z87.891 Personal history of nicotine dependence; F12.90 Cannabis use, unspecified, uncomplicated; Z86.16 Personal history of COVID-19; X58.XXXA Exposure to other specified factors, initial encounter; Y93.9 Activity, unspecified; Y92.9 Unspecified place or not applicable; Y99.9 Unspecified external cause status
CPT/HCPCS: 29882; C1713; J0171; J0690; J1100; J1885; J2250; J2405; J2704; J2795; J3010

== ENCOUNTER → 2023-12-03 07:06 | Outpatient (BNV) | payer OTHER, SELFPAY | PROVIDERS: PCP Internal Medicine; Visit Provider Orthopaedic Surgery | DX: S83.242A Other tear of medial meniscus, current injury, left knee, initial encounter (principal) | CPT/HCPCS: 29882 ==

== ENCOUNTER 2023-12-09 09:32 | Outpatient (AMB) | payer OTHER, SELFPAY ==
--- NOTE | 2023-12-09 09:33 | A.OFFVIS_ITS ---
Intake Intake Visit Reasons: PO Meniscal root repair 12/03/23 NE Intake Note: Aide is a 58 year old female who presents today for a post op appointment s/p meniscal root repair 12/03/23 NE. Patient reports she is feeling well however she is feeling a bit sore. She states that PT went well and they informed her that she is doing good. Allergies prednisone [PREDNISONE] Allergy (Intermediate, Verified 12/09/23 09:33) SHORTNESS OF BREATH, tachycardia HPI PO Meniscal root repair 12/03/23 NE HPI Details 58-year-old female who presents in the o ffice today 6 days status post left knee medial meniscal root repair, which was performed on 12/03/[address] Calix. The patient reports she is feeling well, but a bit sore. She confirms attending physical therapy and states it went well and states they told her she was doing well. [facility] Medical History Acute colitis Acute colitis FH: melanoma BRCA gene mutation negative Anxiety COVID-19 delivery delivered Polyp of stomach Polyp of colon Breast cancer Surgical History Invasive ductal carcinoma of right breast (~05/25/20) History of section History of elbow surgery History of hand surgery History of oral surgery History of esophagogastroduodenoscopy (EGD) (04/05/20) History of colonoscopy (2015) History of lumpectomy of right breast (05/25/20) H/O dilation and curettage History of cholecystectomy (06/28/20) Family History Father History of COPD Substance use disorder Mother History of anxiety History of hypertension Mental health disorder Sister History of colon cancer, Onset Age: 48 History of ovarian cancer History of breast cancer, Onset Age: 42 Mental health disorder Daughter History of cerebral palsy Paternal Grandmother History of [place] (myocardial infarction) Maternal Grandfather History of [place] (myocardial infarction) Paternal Uncle History of throat cancer Paternal Aunt History of breast cancer Family/Other Bone cancer Family/Other Melanoma Social History Household Members: Spouse and Children Housing: House Alcohol intake: current Alcohol intake frequency: holidays/special occasions only Alcohol type: beer Comment: COUNTS CORRECT Patient Tobacco Use Status: Former Tobacco user Cigarette Packs Per Day: 1 e-Cigarette/Vaping Use: Currently Using Substance Use Type: Marijuana service: No Current occupational status: 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 Sexual 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/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 Gender identity: Female Cognitive needs: No Hearing needs: No Vision needs: Yes Female Reproductive History Menstrual Age of Menarche: 13 Review of Systems Const All systems reviewed & are unremarkable except as noted in HPI and below Physical Exam Const General: cooperative, healthy appearing and no acute distress Resp Effort & Inspection: normal respiratory effort and able to speak in complete sentences Cardio Rate: regular rate Peripheral pulses: Peripheral pulses 2+ throughout GI Palpation (GI): Soft to palpation Skin Lesions: no lesions Rashes: no rashes Extrem Other: Left knee: Incision site is clean, dry, and intact. Sutures intact. No surrounding erythema or drainage. No signs of infections. Mild to moderate effusion. Good quad engagement. Sensation intact. Pedal pulse intact. Assessment & Plan Assessment & Plan (1) Tear of medial meniscus of left knee: Comment: Left knee medial meniscal root repair 12/03/2023 Dr. Boom Calix Code(s): S83.242A - Other tear of medial meniscus, current injury, left knee, initial encounter (2) Effusion, left knee: Code(s): M25.462 - Effusion, left knee Plan Ms. Alvares is a 58-year-old female who presents in the office today 6 days status post left knee medial meniscal root repair, which was performed on 12/03/[address] Calix. The patient reports she is feeling well, but a bit sore. She confirms attending physical therapy and states it went well and states they told her she was doing well. Sutures were removed and steri-stripes were applied. I encouraged her to continue to work with physical therapy. She was educated to remain 25% weight bear at this time for 6 weeks. She was told to avoid any bending past 90 degrees for the next 6 weeks. I will send a prescription for Naproxen PO BID to TID PRN. Follow up will be in [address] Calix, or sooner if needed. Medications: New naproxen (Naprosyn) 500 mg PO BID-TID 30 days PRN 90 tabs 0RF pain Patient Instructions: Scribed by Cristiane Huerta, biomedical field service engineer, for Silvina Sotelo PA-C on 12/09/2023 at 9:38 am, EST. Coding Level of Care Code Global (86666) Diagnoses Tear of medial meniscus of left knee S83.242A Effusion, left knee M25.462
== END 2023-12-09 09:56 | disposition home or self-care (01) ==
PROVIDERS: PCP Internal Medicine; Visit Provider Physician Assistant
DX: S83.242A Other tear of medial meniscus, current injury, left knee, initial encounter (principal); M25.462 Effusion, left knee
CPT/HCPCS: 99024

== ENCOUNTER → 2023-12-09 09:32 | Outpatient (BNVA) | payer OTHER, SELFPAY | PROVIDERS: PCP Internal Medicine; Visit Provider Physician Assistant ==

== ENCOUNTER 2024-01-05 11:08 | Outpatient (AMB) | payer OTHER, SELFPAY ==
--- NOTE | 2024-01-05 11:27 | A.OFFVIS_ITS ---
Intake Intake Visit Reasons: PO-Meniscal root repair 12/03/23 NE-follow up Intake Note: jose elias is a 58 year old female who presents today for a post op appointment s/p meniscal root repair 12/03/23 NE. At her last visit she was instructed to remain 25% weight bearing for the next six weeks. Patient reports that she is doing well. She is wondering when she can unlock the brace to 90 degrees, while at PT sh has reached 101 degrees flexion Allergies prednisone [PREDNISONE] Allergy (Intermediate, Verified 12/09/23 09:33) SHORTNESS OF BREATH, tachycardia HPI PO-Meniscal root repair 12/03/23 NE-follow up HPI Details Aide is a 58 year old woman who returns ~5 weeks S/P left medial meniscus root repair. She says she is doing well and continues to wear her locked knee brace She has been attending PT, which she says is going well. She wants to know when she can unlock her knee brace [facility] Medical History Acute colitis Acute colitis FH: melanoma BRCA gene mutation negative Anxiety COVID-19 delivery delivered Polyp of stomach Polyp of colon Breast cancer Surgical History Invasive ductal carcinoma of right breast (~05/25/20) History of section History of elbow surgery History of hand surgery History of oral surgery History of esophagogastroduodenoscopy (EGD) (04/05/20) History of colonoscopy (2015) History of lumpectomy of right breast (05/25/20) H/O dilation and curettage History of cholecystectomy (06/28/20) Family History Father History of COPD Substance use disorder Mother History of anxiety History of hypertension Mental health disorder Sister History of colon cancer, Onset Age: 48 History of ovarian cancer History of breast cancer, Onset Age: 42 Mental health disorder Daughter History of cerebral palsy Paternal Grandmother History of [place] (myocardial infarction) Maternal Grandfather History of [place] (myocardial infarction) Paternal Uncle History of throat cancer Paternal Aunt History of breast cancer Family/Other Bone cancer Family/Other Melanoma Social History Household Members: Spouse and Children Housing: House Alcohol intake: current Alcohol intake frequency: holidays/special occasions only Alcohol type: beer Comment: COUNTS CORRECT Patient Tobacco Use Status: Former Tobacco user Cigarette Packs Per Day: 1 e-Cigarette/Vaping Use: Currently Using Substance Use Type: Marijuana service: No 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 occupational status: 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 Sexual 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/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 Gender identity: Female Cognitive needs: No Hearing needs: No Vision needs: Yes Female Reproductive History Menstrual Age of Menarche: 13 Review of Systems Const All systems reviewed & are unremarkable except as noted in HPI and below Physical Exam Const General: no acute distress, alert and awake Orientation/consciousness: patient oriented x3 HEENT Head: Yes normocephalic and Yes atraumatic Eyes EOM: EOMs intact bilaterally Resp Effort & Inspection: normal respiratory effort and able to speak in complete sentences Cardio Jugular venous distension: no JVD Skin General skin exam: turgor normal Rashes: no rashes Neuro General: patient oriented x3 Extrem Other: inc c/d/i 0-90 deg motion Psych Appearance: grossly normal Affect: normal affect Attitude: cooperative Assessment & Plan Assessment & Plan (1) Tear of medial meniscus of left knee: Comment: Left knee medial meniscal root repair 12/03/2023 Dr. Boom Calix Code(s): S83.242A - Other tear of medial meniscus, current injury, left knee, initial encounter Plan: Five weeks status post posterior root repair. Overall she is doing well. I gave her our rehab protocol. She will progress more aggressively next week without the brace. I will follow-up with her in 6-7 weeks. Plan Prepared for Boom Calix MD by Rafael Rosas, medical scientific liaison, on 01/05/24 at 11:33 AM, EST. Coding Level of Care Code Global (87364) Diagnoses Tear of medial meniscus of left knee S83.242A
== END 2024-01-05 12:03 | disposition home or self-care (01) ==
PROVIDERS: PCP Internal Medicine; Visit Provider Orthopaedic Surgery
DX: S83.242A Other tear of medial meniscus, current injury, left knee, initial encounter (principal)
CPT/HCPCS: 99024

== ENCOUNTER → 2024-01-05 11:08 | Outpatient (BNVA) | payer OTHER, SELFPAY | PROVIDERS: PCP Internal Medicine; Visit Provider Orthopaedic Surgery ==

== ENCOUNTER 2024-01-13 09:17 | Outpatient (AMB) | payer OTHER, SELFPAY ==
--- NOTE | 2024-01-13 09:20 | A.OFFVIS_ITS ---
Intake Vital Signs 3 01/13/24 09:28 Height 5 ft 4 in Weight 160 lb BMI 27.5 BP 130/70 Blood Pressure Location Lt brachial Position Sitting Pulse 78 Intake Visit Reasons: 6 mth follow up breast exam Intake Note: Patient is seen in office for 6 month follow up visit, breast exam. Patient c/o: no concerns since last visit MRI B:09/15/23 mm:04/01/23 College Recruiter Required: No Accompanied by: Self / Same As Patient Allergies prednisone [PREDNISONE] Allergy (Intermediate, Verified 01/13/24 09:20) SHORTNESS OF BREATH, tachycardia Medication List - Last Reconciled 01/13/24 by Luis Enrique Sow MD acetaminophen 500 mg PO Q6H PRN aspirin 325 mg PO DAILY 28 days escitalopram oxalate (Lexapro) 10 mg PO DAILY ferrous sulfate (iron) 325 mg PO DAILY letrozole 2.5 mg PO DAILY lorazepam 1 tab PO Q8H PRN naproxen (Naprosyn) 500 mg PO BID-TID PRN 30 days oxycodone-acetaminophen 5-325 mg 1 tab PO Q4-6H PRN 7 days [Probiotic 500 mg PO DAILY] [Vitamin D (with calcium) 1 tab PO DAILY] HPI HPI Comments 2 History of Present Illness0 Details 58-year-old female patient returning for routine breast examination following a diagnosis of invasive ductal carcinoma in May 2020. She initially noted a palpable lump in the right breast in the upper outer quadrant subsequently underwent mammogram and ultrasound which revealed a suspicious lesion corresponding to the palpable mass.? Core biopsy revealed invasive ductal carcinoma.? She underwent a right breast lumpectomy with needle localization and sentinel node biopsy on 05/25/2020.? Pathology revealed a 2.0 cm invasive ductal carcinoma, ER/NV positive, HER2 Perfecto negative with negative margins.? One of 2 sentinel nodes were positive for malignancy.?Pathological stage pT1c N1a (sn) (i +). She was evaluated by Dr. Mathews and Dr. Light.? While awaiting chemotherapy she developed acute cholecystitis subsequently requiring a laparoscopic cholecystectomy performed on 06/29/2020.? She then underwent chemotherapy followed by radiation therapy.? Prior to the start of radiation therapy she developed COVID-19.? She was subsequently started on tamoxifen and is tolerating this fairly well.? She denies any new breast symptoms.? Her last mammogram dated 04/01/2023 revealed no mammographic evidence of malignancy (BI-RADS 2). Breast MRI performed 09/15/2023 revealed postoperative changes in the right breast with no new MR specific evidence of malignancy in either breast (BI-RADS 2 right breast, BI-RADS 1 left breast). [facility] Genetic testing (05/09/2020) revealed no clinically significant mutations or variants of unknown significance.? She underwent left knee surgery with Dr. Calix approximately 6 weeks ago and reports that she is progressing well. [facility] Medical History Acute colitis Acute colitis FH: melanoma BRCA gene mutation negative Anxiety COVID-19 delivery delivered Polyp of stomach Polyp of colon Breast cancer Surgical History Invasive ductal carcinoma of right breast (~05/25/20) History of section History of elbow surgery History of hand surgery History of oral surgery History of esophagogastroduodenoscopy (EGD) (04/05/20) History of colonoscopy (2015) History of lumpectomy of right breast (05/25/20) H/O dilation and curettage History of cholecystectomy (06/28/20) Family History Father History of COPD Substance use disorder Mother History of anxiety History of hypertension Mental health disorder Sister History of colon cancer, Onset Age: 48 History of ovarian cancer History of breast cancer, Onset Age: 42 Mental health disorder Daughter History of cerebral palsy Paternal Grandmother History of [place] (myocardial infarction) Maternal Grandfather History of [place] (myocardial infarction) Paternal Uncle History of throat cancer Paternal Aunt History of breast cancer Family/Other Bone cancer Family/Other Melanoma Social History Household Members: Spouse and Children Housing: House Alcohol intake: current Alcohol intake frequency: holidays/special occasions only Alcohol type: beer Comment: COUNTS CORRECT Patient Tobacco Use Status: Former Tobacco user Cigarette Packs Per Day: 1 e-Cigarette/Vaping Use: Currently Using Substance Use Type: Marijuana service: No 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 occupational status: 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 Sexual 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/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 Gender identity: Female Cognitive needs: No Hearing needs: No Vision needs: Yes Female Reproductive History Menstrual Age of Menarche: 13 Review of Systems Const All systems reviewed & are unremarkable except as noted in HPI and below Card Reports no additional complaints Resp Reports no additional complaints GI Reports no additional complaints Denies nipple discharge Musc Details: Sciatica, currently undergoing physical therapy Skin/Breast Reports breast skin changes, Reports breast pain, Denies breast mass, Denies change in breast shape, Reports new lesions (Right arm as noted in HPI) and Denies nipple discharge Ravindra/Lymph Denies lymphadenopathy Physical Exam Vital Signs: Last Vital Signs Pulse 78 01/13/24 09:28 BP 130/70 01/13/24 09:28 BMI result Body Mass Index 27.5 Const General: cooperative, healthy appearing, comfortable, no acute distress, well developed, alert and awake Neck Neck: Yes normal visual inspection and Yes no lymphadenopathy Chest Other: Right breast with a well-healed incision in the upper outer quadrant and axilla with no redness, mass, skin change, nipple discharge, nipple retraction, or palpable lymph nodes. Left breast with no skin change, nipple discharge, nipple retraction, palpable mass, or enlarged lymph nodes. Chest/axillae images: 2 1. Right breast upper outer quadrant incision 2. Right axillary incision Skin Other: Right upper arm lesion as noted in chest above Extrem General: Yes no clubbing, cyanosis or edema Assessment & Plan Assessment & Plan (1) Invasive ductal carcinoma of right breast: Onset Date: ~05/25/20 Code(s): C50.911 - Malignant neoplasm of unspecified site of right female breast Plan: 58-year-old female with a history of a palpable mass in the right breast determined to be an invasive ductal carcinoma, 2 cm, ER positive, NV positive, HER2 Perfecto negative. She underwent a right breast lumpectomy with sentinel node biopsy. Pathological stage pT1c N1a (sn) (i +). She underwent adjuvant chemotherapy and radiation therapy. She is now on tamoxifen which she is tolerating fairly well but will be stopping switching to another medication. Examination today reveals no evidence of recurrence disease. Mammogram dated 04/01/2023 revealed no mammographic evidence of malignancy (BI-RADS 2). An order has been placed for annual screening mammogram due on 04/02/2024. Breast MRI performed on 09/15/2023 revealed no MR specific evidence of malignancy (BI-RADS 2 right breast, BI-RADS 1 left breast). She should follow up in 6 months, sooner p.r.n.. Orders: Orders 2 MM screening mammo BI 04/02/24 C50.911 - Malignant neoplasm of unspecified site of right female breast Coding Level of Care Code Est Pt Level 3 (17025) Diagnoses Invasive ductal carcinoma of right breast C50.911
[2024-01-13 09:28] VITALS: BP 130/70; PULSE 78; BMI 27.5
== END 2024-01-13 09:47 | disposition home or self-care (01) ==
PROVIDERS: PCP Internal Medicine; Visit Provider Surgery
DX: C50.911 Malignant neoplasm of unspecified site of right female breast (principal)
CPT/HCPCS: 99213

== ENCOUNTER → 2024-01-13 09:17 | Outpatient (BNVA) | payer OTHER, SELFPAY | PROVIDERS: PCP Internal Medicine; Visit Provider Surgery ==

== ENCOUNTER 2024-02-13 09:41 | Outpatient (AMB) | payer OTHER, SELFPAY ==
--- NOTE | 2024-02-13 09:44 | MHC.OFFVIS ---
Intake Vital Signs 02/13/24 09:48 Height 5 ft 4 in Weight 160 lb BMI 27.5 Intake Visit Reasons: OV-Meniscal root repair 12/03/23 NE-follow up Intake Note: Aide is a 58 year old female who presents today for a post op appointment s/p meniscal root repair 12/03/23 NE. Patient reports she is feeling good and is beginning PT next week. Patient reports she is at 128 degrees flexion with PT, they want her to reach 130 and she is asking if she should continue to work on this. She stopped using her brace yesterday and states she only used it when she went out. Allergies prednisone [PREDNISONE] Allergy (Intermediate, Verified 02/13/24 09:49) SHORTNESS OF BREATH, tachycardia HPI OV-Meniscal root repair 12/03/23 NE-follow up HPI Details Aide is a 58 year old female who presents today for a post op appointment s/p meniscal root repair 12/03/23 NE. Patient reports she is feeling good and is beginning PT next week. Patient reports she is at 128 degrees flexion with PT, they want her to reach 130 and she is asking if she should continue to work on this. She stopped using her brace yesterday and states she only used it when she went out. 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) History of section History of elbow surgery History of hand surgery History of oral surgery History of esophagogastroduodenoscopy (EGD) (04/05/20) History of colonoscopy (2016) History of lumpectomy of right breast (05/25/20) H/O dilation and curettage History of cholecystectomy (06/28/20) Family History Father History of COPD Substance use disorder Mother History of anxiety History of hypertension Mental health disorder Sister History of colon cancer, Onset Age: 48 History of ovarian cancer History of breast cancer, Onset Age: 42 Mental health disorder Daughter History of cerebral palsy Paternal Grandmother History of [place] (myocardial infarction) Maternal Grandfather History of [place] (myocardial infarction) Paternal Uncle History of throat cancer Paternal Aunt History of breast cancer Family/Other Bone cancer Family/Other Melanoma Social History Household Members: Spouse and Children Housing: House Alcohol intake: current Alcohol intake frequency: holidays/special occasions only Alcohol type: beer Comment: COUNTS CORRECT Patient Tobacco Use Status: Former Tobacco user Cigarette Packs Per Day: 1 e-Cigarette/Vaping Use: Currently Using Substance Use Type: Marijuana service: No Current occupational status: 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 Boom Calix Code(s): S83.242A - Other tear of medial meniscus, current injury, left knee, initial encounter Plan: s/p root repair. She is doing well. Continue HEP and caution with recreational activities. I described the recovery timeline. Plan Follow up with me in 6-8 weeks Coding Level of Care Code Global (19888) Diagnoses Tear of medial meniscus of left knee S83.242A
[2024-02-13 09:48] VITALS: BMI 27.5
== END 2024-02-13 10:09 | disposition home or self-care (01) ==
PROVIDERS: PCP Internal Medicine; Visit Provider Orthopaedic Surgery
DX: S83.242A Other tear of medial meniscus, current injury, left knee, initial encounter (principal)
CPT/HCPCS: 99024

== ENCOUNTER → 2024-02-13 09:41 | Outpatient (BNVA) | payer OTHER, SELFPAY | PROVIDERS: PCP Internal Medicine; Visit Provider Orthopaedic Surgery ==

== ENCOUNTER 2024-03-09 09:00 | Outpatient (RCR) | payer OTHER, SELFPAY ==
--- NOTE | 2023-12-26 12:39 | MHC.PT.OD ---
[facility] [place] Office [place] Office [place] Office [address] Nazario Gonzalez [address] [phone] F: [phone] F: [phone] F: [phone] F: [phone] Physical Therapy Daily Note Diagnosis: S83.24A OTHER Tear of medial meniscus current injury, left knee initial encounter, left knee repair of medial meniscus root, tear of medial meniscus, left knee date of script 12/08/23 Date of Surgery: 12/03/23 Date of Evaluation: 12/08/23 Date of Treatment: 12/26/23 Treatments to Date: Cancellations to Date: No Shows to Date: Authorized Visits: 4 Insurance End Date: Precautions/ Contraindications:L knee surgery 12/03/23: S83.242A Other tear of medial meniscus, current injury, left knee initial encounter tear of medial meniscus of left knee Brace locked in extension, PWB 25% L LE x 6 weeks 25% weight-bearing for 6 weeks after surgery per DC notes (script did not indicate weight-bearing orders)- [place] text sent to confirm weight-bearing orders as 25% to Silvina Sotelo, 12/08/23v hx breast CA, hx anxiety Subjective: Presents to office with both crutches, reports ongoing fatigue with therex at home, feeling good. To see ortho on 11/10/23 for follow up. Pain Score and Location: 2 Objective Flowsheet: Tests & Measures AROM PROM heel prop to 0, AAROM flexion to 95 degrees Exercises not at this time per protocol Isometric QS at 0 x 3 sets 10R x 5 sec hold, QS with bolster under knee x 3 sets 10R with 5 sec hold, isometric hip adduction with QS combo x 2 sets 10R, SLR into flexion (no brace therapist monitoring 75% height of other knee x 15R, SL hip adduction/prone hip extension/hip abduction x 2 sets 10R with brace on, brace removed for heel slides aarom flexion to 95, passive knee extension heel prop with ice anterior posterior knee x 10 minutes . Review of HEP issued SL hip adduction with brace on, isometric QS with towel roll and hip adduction with QS for home today. Gait training with use of bilateral axillary crutches (adjusted and raised height one level to improve weight-bearing) to improve posture 5'5' height', ascending step with L LE first to improve sequencing. Pt educated to use [place] brace at all times for hygiene and therapy. Review of sequencing for ambulation, ensuring brace is locked in extension at all times. Modalities Assessment: 12/26/23: Pt is three weeks, two days post op. She presents to office with brace locked in extension using both axillary crutches. She has full knee PROM/AAROm extension and is progressing along in her AAROM flexion (today in office was 95). She continues to wear her brace locked in extension but admits has not been completely compliant with PWB 25% and has been observed coming to PT at least once with use of only one crutch. She was educated in the need to abide by her weight-bearing restrictions in order and verbalized understanding. She reports struggling with this at times. She will be seeing her surgeon office on 11/20/23 and will await updated weight-bearing orders at that visit. She is doing well in her rehab and is compliant with her HEP. She is able to perform a SLR (outside of the brace with supervision of PT with good ability and is performing with brace on at home daily. She reports stretch and tension at distal quadriceps and was educated in low load gentle stretching with assist for home. She denies pain in joint line of her knee. Edema and bruising are improving. 12/18/23: Pt is two weeks, one day post op (12/03/23). AAROM flexion 90 degrees. Pt noncompliant with using bilateral axillary crutches, was educated in need to maintain use of two crutches, PWB 25% until 6 weeks post op. Pt issued written SL hip adduction and prone hip extension sheets. Pt is 1 week, 5 days post op (12/03/23) exhibits AAROM extension 0 to 90 AAROM heel slides. Today pt was educated re: how to unlock brace for AAROM heel slides at home 0-90, educated re: importance of not pushing into pain, and educated need to lock brace back into extension for ambulation/walking. Pt challenged with SLR but demonstrated good carryover of home education program goals. 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 Pt exhibits AAROM L knee -9 to 50 AAROM degrees. Presents to office with use of bilateral axillary crutches, 25% weight-bearing L LE with hinged knee brace locked in extension. Pt reports has a follow up tomorrow (12/09/23) with orthopedics. Pt would benefit from attending skilled PT services at a frequency of 2x/week x 6 weeks to address impairments, implement HEP, and restore functional mobility tolerance to resume PLOF per protocol guidance. Of note: I sent a tiger text to Silvina Rincon on 12/08/23 at 3: 21 pm inquiring/confirming 25% weight-bearing x 6 weeks on the LLE as no weight-bearing was indicated on the script (only found on D/C paperwork). On 12/09/23, a fax was obtained from [facility] orthopedics [facility] Sports Medicine Meniscal Root repair protocol with confirmation of 25% weight-bearing for the first 6 weeks of PT. Pt expresses minimal pain but did not take anything prior to appt this date. Pt has been icing her knee and has not yet resumed driving. Pt has a chair lift in her home and reports use of a shower bench for bathing. Pt will be seen in PT 2x/week x 6 weeks to address listed impairments, implement HEP, and restore functional mobility to maximize function. PT Plan: 2x/week x8 weeks Add prone hip extension, SL hip adduction next session Short Term Goals: 1. L knee AROM -5 degrees. 2. L knee AAROM flexion to 90. 3. SLR into flexion with good strength. 4. Pt will demonstrate 25% weight-bearing with bilateral axillary crutches. Retirement Goals: 1. L knee AROM 0 degrees extension. 2. L knee AAROM flexion 120 degrees. 3. Pt will wean from use of axillary crutches, FWB as tolerated. 4. Reciprocal stair negotiation I of brace/crutches as allowed by protocol. 5. Resume recreational walking program MOD I when allowed per advancement of protocol. 6. Strength 5/5 L knee all planes. 7. Community ambulation and driving MOD I, I of AD and activities. Electronically signed by: Enedina Glynn, PT, DPT
== END 2024-04-26 08:15 | disposition home or self-care (01) ==
LOC: HO.PTWFD 09:00
PROVIDERS: PCP Internal Medicine; Visit Provider Orthopaedic Surgery
DX: S83.242A Other tear of medial meniscus, current injury, left knee, initial encounter (principal)
CPT/HCPCS: 97110; 97116; 97150; 97162; 97163; 97535

== ENCOUNTER 2024-04-01 09:29 | Outpatient (AMB) | payer OTHER, SELFPAY ==
[2024-04-01 09:38] VITALS: BMI 28.3
--- NOTE | 2024-04-01 09:38 | A.OFFVIS_ITS ---
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 Patient reports that she is doing well she had some mild pain and stiffness. She is done with physical therapy. Her stiffness is felt mostly first thing in the morning and after prolonged sitting. Allergies prednisone [PREDNISONE] Allergy (Intermediate, Verified 02/17/24 09:32) SHORTNESS OF BREATH, tachycardia HPI HPI OV-Meniscal root repair 12/03/23 NE-follow up: Details: Aide is a 58 year old female who presents today for a follow up s/p Left knee medial meniscal root repair 12/03/2023. Patient reports that she is doing well she had some mild pain and stiffness. She is done with physical therapy. Her stiffness is felt mostly first thing in the morning and after prolonged sitting. [facility] Medical History Acute colitis Acute colitis FH: melanoma BRCA gene mutation negative Anxiety COVID-19 delivery delivered Polyp of stomach Polyp of colon Breast cancer Surgical History Invasive ductal carcinoma of right breast (~05/25/20) History of section History of elbow surgery History of hand surgery History of oral surgery History of esophagogastroduodenoscopy (EGD) (04/05/20) History of colonoscopy (2015) History of lumpectomy of right breast (05/25/20) H/O dilation and curettage History of cholecystectomy (06/28/20) Family History Father History of COPD Substance use disorder Mother History of anxiety History of hypertension Mental health disorder Sister History of colon cancer, Onset Age: 48 History of ovarian cancer History of breast cancer, Onset Age: 42 Mental health disorder Daughter History of cerebral palsy Paternal Grandmother History of [place] (myocardial infarction) Maternal Grandfather History of [place] (myocardial infarction) Paternal Uncle History of throat cancer Paternal Aunt History of breast cancer Family/Other Bone cancer Family/Other Melanoma Social History Household Members: Spouse and Children Housing: House Alcohol intake: current Alcohol intake frequency: holidays/special occasions only Alcohol type: beer Comment: COUNTS CORRECT Patient Tobacco Use Status: Former Tobacco user Cigarette Packs Per Day: 1 e-Cigarette/Vaping Use: Currently Using Substance Use Type: Marijuana service: No Current occupational status: 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 Boom Calix Code(s): S83.242A - Other tear of medial meniscus, current injury, left knee, initial encounter Category: Medical Plan: s/p left knee root repair improving with mild effusion likely 2/2 pre existing PF OA continue gentle walking and icing/NSAIDs f/u 2 months Coding Level of Care Code Est Pt Level 3 (31788) Diagnoses Tear of medial meniscus of left knee S83.242A
== END 2024-04-01 09:52 | disposition home or self-care (01) ==
PROVIDERS: PCP Internal Medicine; Visit Provider Orthopaedic Surgery
DX: S83.242A Other tear of medial meniscus, current injury, left knee, initial encounter (principal)
CPT/HCPCS: 99212

== ENCOUNTER → 2024-04-01 09:29 | Outpatient (BNVA) | payer OTHER, SELFPAY | PROVIDERS: PCP Internal Medicine; Visit Provider Orthopaedic Surgery ==

== ENCOUNTER 2024-04-12 08:25 | Outpatient (REF) | payer OTHER, SELFPAY ==
--- NOTE | ~2024-04-12 | MM_ITS ---
EXAMINATION: MM SCREENING DIGITAL BREAST TOMOSYNTHESIS, BILATERAL CLINICAL INFORMATION: Screening. Asymptomatic. History of previous lumpectomy and radiation right breast upper outer quadrant, with pathology indicating IDC and DCIS. Sister diagnosed with breast cancer age 42. COMPARISON: Mammography: Prior exams including most recent of 04/01/2023, and 03/29/2022. Dating back to 10/01/2018 ([place]). MRI breasts 09/15/2023. TECHNIQUE: Digital breast tomosynthesis is performed in both the craniocaudal and mediolateral oblique views along with computer-aided detection (CAD). Synthesized 2D images are generated from the tomosynthesis. FINDINGS: There are scattered areas of fibroglandular density (ACR BI-RADS breast composition Category b). Post lumpectomy scarring and treatment related changes again noted in the upper outer right breast, posterior one third, stable without significant change. Mild right breast trabecular prominence and skin thickening from treatment related changes, improving. The overall parenchymal pattern of both breasts is unchanged from prior exams. A few scattered right and left breast asymmetries are stable from prior exams. No suspicious masses, developing grouped microcalcifications, or developing areas of architectural distortion in either breast. No new skin or evidence of axillary abnormality. MM/MM tomosynthesis screening BI IMPRESSION: -No mammographic evidence of malignancy in either breast. -Stable post treatment related changes right breast. ASSESSMENT: BI-RADS BI-RADS 2 - Benign Findings RECOMMENDATION: Routine annual mammography screening. 1 year F/U This examination should not preclude the clinical evaluation of a suspicious palpable abnormality. This patient's information was entered into a reminder system with a target due date for their next mammogram.
== END 2024-04-12 08:26 | disposition home or self-care (01) ==
LOC: HO.MAMMO 08:25
PROVIDERS: PCP Internal Medicine; Visit Provider Surgery
DX: Z12.31 Encounter for screening mammogram for malignant neoplasm of breast (principal)
CPT/HCPCS: 77063; 77067

== ENCOUNTER → 2024-04-12 08:30 | Outpatient (BNV) | payer OTHER, SELFPAY | PROVIDERS: PCP Internal Medicine; Visit Provider Radiology Diagnostic Radiology | DX: Z12.31 Encounter for screening mammogram for malignant neoplasm of breast (principal) | CPT/HCPCS: 77063; 77067 ==

== ENCOUNTER 2024-05-03 08:31 | Outpatient (AMB) | payer OTHER, SELFPAY ==
[2024-05-03 08:36] VITALS: BP 138/90; PULSE 90; O2SAT 98; BMI 27.6
--- NOTE | 2024-05-03 08:36 | MHC.PC.OV ---
Vital Signs 05/03/24 08:36 Height 5 ft 4 in Weight 161 lb BMI 27.6 BP 138/90 H Blood Pressure Location Lt brachial Position Sitting Pulse 90 Pulse Source Pulse Oximeter Pulse Oximetry (%) 98 Oxygen Delivery Method Room Air Intake Visit Reasons: Annual PE Intake Note: Pt is here today for her PE: Last mammogram 04/12/24, colonoscopy 09/11/23, papsmear 06/10/23 Allergies prednisone [PREDNISONE] Allergy (Intermediate, Verified 05/03/24 08:55) SHORTNESS OF BREATH, tachycardia Medication List - Last Reconciled 05/03/24 by Shantel Figueroa MD amoxicillin 500 mg PO TID escitalopram oxalate (Lexapro) 10 mg PO DAILY ferrous sulfate (iron) 325 mg PO DAILY letrozole 2.5 mg PO DAILY lorazepam 1 tab PO Q8H PRN [Probiotic 500 mg PO DAILY] [Vitamin D (with calcium) 1 tab PO DAILY] Tobacco use date assessed: 05/03/24 Dental Screening Dental Screen Date: 05/03/24 Did you have a dental visit in the last 12 months?: Yes Did you have a dental problem in the last 6 months where you did not have access to dental care?: Yes Was dental information given to patient?: Patient has dentist HPI Annual PE HPI Details 59-year-old lady with history of right invasive breast carcinoma status post lumpectomy and sentinel node biopsy, do when chemotherapy and is now on letrozole, followed by Dr. Mathews. She is up-to-date with her screening mammogram and had a breast MRI in 10/22/2023 all with benign findings. She also had a bone density scan done last year which showed normal findings. She is up-to-date with her cervical cancer screening and colonoscopy screening done both last year. Has been having intermittent episodes of vague abdominal pain mainly in the right lower quadrant . Denies any accompanying constipation or diarrhea, no blood in stool, no nausea or vomiting [facility] Medical History (Updated 05/03/24 @ 09:27 by Shantel Figueroa MD) Essential hypertension History of invasive ductal carcinoma of breast Acute colitis Acute colitis FH: melanoma BRCA gene mutation negative Anxiety COVID-19 delivery delivered Polyp of stomach Polyp of colon Breast cancer Surgical History (Updated 05/03/24 @ 09:26 by Shantel Figueroa MD) Invasive ductal carcinoma of right breast (~05/25/20) History of section History of elbow surgery History of hand surgery History of oral surgery History of esophagogastroduodenoscopy (EGD) (04/05/20) History of colonoscopy (2016) History of lumpectomy of right breast (05/25/20) H/O dilation and curettage History of cholecystectomy (06/28/20) Family History Father History of COPD Substance use disorder Mother History of anxiety History of hypertension Mental health disorder Sister History of colon cancer, Onset Age: 48 History of ovarian cancer History of breast cancer, Onset Age: 42 Mental health disorder Daughter History of cerebral palsy Paternal Grandmother History of [place] (myocardial infarction) Maternal Grandfather History of AK (myocardial infarction) Paternal Uncle History of throat cancer Paternal Aunt History of breast cancer Family/Other Bone cancer Family/Other Melanoma Social History Household Members: Spouse and Children Housing: House Alcohol intake: current Alcohol intake frequency: holidays/special occasions only Alcohol type: beer Comment: COUNTS CORRECT Patient Tobacco Use Status: Former Tobacco user Cigarette Packs Per Day: 1 e-Cigarette/Vaping Use: Currently Using Substance Use Type: Marijuana service: No Current occupational status: 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 1. Little interest or pleasure in doing things: not at all 2. Feeling down, depressed, or hopeless: not at all 3. Trouble falling or staying asleep, or sleeping too much: several days 4. Feeling tired or having little energy: not at all 5. Poor appetite or overeating: not at all 6. Feeling bad about yourself - or that you are a failure or have let yourself or your family down: not at all 7. Trouble concentrating on things, such as reading the newspaper or watching television: not at all 8. Moving or speaking so slowly that other people could have noticed. Or the opposite - being so fidgety or restless that you have been moving around a lot more than usual: not at all 9. Thoughts that you would be better off or of hurting yourself in some way: not at all Total score: 1 Depression Screening Interpretation: Negative Depression Screening Done: Yes 80115 - PHQ-9 Billing: Yes Source: Developed by Drs. Trell Carter, Su Montoya, Wayne Milligan and colleagues, with an educational terrence from [employer]. Thrive Questionnaire Date Thrive assessed: 05/03/24 I am a: Patient What is your living situation today?: I have a steady place to live Within the past 12 months, did the food you bought not last and you didn't have the money to get more?: Never true Within the past 12 months, did you worry whether your food would run out before you got money to buy more?: Never true Do you have trouble paying for medicines?: No Do you have trouble getting transportation to medical appointments?: No Do you have trouble paying your heating and electricity bill?: No Do you have trouble taking care of your child, family member or friend?: No Do you have trouble with day-to-day activities such as bathing, preparing meals, shopping, managing finances, etc.?: No Are you currently unemployed and looking for a job?: No Are you interested in more education?: No THRIVE Score: 0 AUDIT C Alcohol Use Questionnaire (AUDIT-C) 1. How often do you have a drink containing alcohol?: Never Total Score: 0 ROBERTO-7 AMB Questionnaire ROBERTO-7 Date ROBERTO - 7 assessed: 05/03/24 Feeling nervous, anxious, or on edge: 1 = Several days Not being able to stop or control worryin = Not at all Worrying too much about different things: 1 = Several days Trouble relaxin = Several days Being so restless that it is hard to sit still: 0 = Not at all Becoming easily annoyed or irritable: 0 = Not at all Feeling afraid as if something awful might happen: 0 = Not at all Total ROBERTO-7 score (0-4 normal; 5-9 mild; 10-14 moderate; 15-21 severe): 3 Source: Developed by Brandon Troyet B.W. Jan, Wayne Milligan and colleagues, with an educational terrence from [employer]. Review of Systems Const Reports no additional complaints Eyes Details: sees Dr Turner in [place] , has progressive ENT Reports no additional complaints Card Reports no additional complaints Resp Reports no additional complaints GI Reports as per HPI Denies nipple discharge Musc Details: Sciatica, currently undergoing physical therapy Skin/Breast Details: Recently seen by Dr. Wills with removal of precancerous skin lesion on chest Reports breast pain, Denies breast mass, Denies change in breast shape and Denies nipple discharge Neuro Reports no additional complaints Psych Reports no additional complaints Endo Reports no additional complaints Ravindra/Lymph Denies easy bleeding, Denies easy bruising and Denies lymphadenopathy Aller/Immun Reports no additional complaints Physical exam (Primary Care) Vital Signs: Last Vital Signs Pulse 90 05/03/24 08:36 BP 138/90 H 05/03/24 08:36 Pulse Ox 98 05/03/24 08:36 Oxygen Delivery Method Room Air 05/03/24 08:36 BMI result Body Mass Index 27.6 Tobacco/Smoking Status: Tobacco use Status Tobacco use date assessed 05/03/24 05/03/24 08:37 Patient Tobacco Use Status Former Tobacco user 05/03/24 08:37 e-Cigarette/Vaping Use Currently Using 05/03/24 08:37 Depression Screening Interpretation: Negative Advance Care Planning discussion: Completed/Scanned Date of discussion: 05/03/24 Who was present: Patient Forms completed: Health Care Proxy Time spent: 16-45 minutes Actual minutes spent: 16 Const General: comfortable, no acute distress, alert and Physically active Orientation/consciousness: patient oriented x3 HENMT Head: Yes normocephalic Ears: external ears normal General nose exam: Normal external nose present, Normal nares present and No nasal discharge present Face and sinus: Yes face symmetric Mouth: Normal oral and palatal mucosa present, oropharynx normal and moist mucous membranes Eyes General: appearance normal, both eyes and all related structures Neck Neck: Yes normal visual inspection, Yes full ROM, Yes no lymphadenopathy and Yes supple Thyroid: Thyroid normal Chest Other: Surgical scar on upper outer quadrant of right breast Breast/axilla inspection: normal inspection of the breasts and normal inspection of the axillae Breast/axilla palpation: normal palpation of the breasts and normal palpation of the axillae Resp Effort & Inspection: normal respiratory effort and able to speak in complete sentences Auscultation: clear to auscultation bilaterally Cardio Palpation: normal PMI Rate: regular rate Rhythm: regular rhythm Heart sounds: S1 normal heart sound present and S2 normal heart sound present Bruits: no abdominal aortic bruits GI Inspection: Yes normal to inspection and Yes scar (Laparoscopic cholecystectomy scar well healed) Palpation (GI): No Abdominal aortic bruit present, Soft to palpation, Tenderness to palpation present (GI) in the RLQ, no guarding and no masses Auscultation: normal bowel sounds Other: Goes to [facility] for her routine Pap and pelvic exam General: Yes no CVA tenderness and Yes deferred Back/Spine/Pelvis Back: no CVA tenderness and No back tenderness Skin General skin exam: no rashes or lesions noted Neuro General: patient oriented x3, gait normal, moves all extremities, no focal motor deficits and CN's II-XI intact bilaterally Extrem Other: Mild joint effusion on left knee, positive crepitus, no instability General: Yes full ROM, Yes no joint enlargement, Yes no clubbing, cyanosis or edema and Yes normal gait Psych Appearance: grossly normal and well kempt Mental Status: mental status grossly normal Speech and movement: Normal speech and movement present Affect: normal affect Attitude: cooperative Thought process: Normal thought process present Results Reviewed Results Reviewed: Laboratory Tests 02/17/24 09:39 WBC 4.9 Hgb 12.8 Hct 38.6 Plt Count 192 Name: Aide Alvares Age/Sex: 58/F : 1965 Unit#: [id number] Attend Dr: Meeta Mathews MD Re02/17/24 Status: REG RCR Location: [facility] Disch: SPEC : [id number] NIXON: 02/17/24 STATUS: COMP REQ : [id number] RECD: 02/17/[address]: Meeta Mathews MD COMP: 02/17/249 ENTERED: 02/17/[address]: Shantel Figueroa MD ORDERED: CMP Test Result Flag Reference Sodium 143 135-145 mmol/L Potassium 4.4 3.3-5.1 mmol/L CL 106 96-108 mmol/L CO2 29 22-29 mmol/L Gap 12 12-20 BUN 13 9-16 mg/dL Creat 0.70 0.5-1.4 mg/dL Estimated CrCl 87.8 Provided height and weight: 162.56 cm, 74.9 kg. eGFR (calculated from the MDRD study equation) and eCrCl (calculated from the Cockcroft-Gault equation) are based on different parameters and may not yield comparable results. If eCrCl result is absurd, please check patient's height/weight. EGFR > 60 NOTE: For -Spanish individuals, multiply the result by 1.210. Chronic Kidney Disease: Estimated GFR < 60 mL/min/1.73m2 Severe Kidney Disease: Estimated GFR < 15 mL/min/1.73m2 Glucose, Random 92 60-115 mg/dL CA 9.8 8.4-10.2 mg/dL Total Bili 0.3 0.0-1.0 mg/dL AST (GOT) 21 5-31 U/L ALT (GPT) 15 0-31 U/L Protein, Total 7.3 6.5-8.0 g/dL Alb 4.3 3.5-5.0 g/dL Alk Phos 63 39-117 U/L Assessment and Plan Assessment & Plan (1) Annual visit for general adult medical examination with abnormal findings: Code(s): Z00.01 - Encounter for general adult medical examination with abnormal findings Plan: Will check appropriate labs. Continue with regular dental visit every 6 months and regular eye exams, at least every 2 years. Take adequate calcium in diet and vitamin-D 3 at 2000 IU per cap once a day, in addition to weight-bearing exercises to help maintain good muscle tone and weight control. She is up-to-date with her screening mammogram and had a breast MRI in 10/22/2023 all with benign findings. She also had a bone density scan done last year which showed normal findings. She is up-to-date with her cervical cancer screening and colonoscopy screening done both last year. Has had COVID vaccines in the past as I want to get the booster, reminded to get her yearly flu vaccine. Up-to-date with her shingles vaccine and Tdap. (2) Essential hypertension: Code(s): I10 - Essential (primary) hypertension Plan: Blood pressure goal is less than 130/80. Will start on losartan 50 mg per tablet taken once a day in a.m.. Reinforced importance of following a low-salt diet and getting regular exercise. Will have her see nurse navigator in 2 weeks to check blood pressure (3) Right lower quadrant abdominal pain: Code(s): R10.31 - Right lower quadrant pain Plan: Ultrasound pelvic and transvaginal ordered (4) History of uterine leiomyoma: Code(s): Z86.018 - Personal history of other benign neoplasm Plan: Ordered ultrasound of pelvic and transvaginal (5) Encounter for screening for lipid disorder: Code(s): Z13.220 - Encounter for screening for lipoid disorders Plan: Fasting lipid ordered, continue with adherence to healthy eating habits with low-cholesterol and get regular exercise, but recommend swimming instead of walking due to recent left knee surgery (6) History of invasive ductal carcinoma of breast: Code(s): Z85.3 - Personal history of malignant neoplasm of breast Plan: Followed by hematology and Dr. Sow. Up-to-date with her mammogram screening (7) Advanced directives, counseling/discussion: Code(s): Z71.89 - Other specified counseling Plan: Initiated the conversation about Advanced Directives. Advanced Directives help patients prepare for current and future decisions about their medical treatment and place of care. Discussed with patient that it is a process where a patients current condition and prognosis are reviewed, their wishes for information regarding their illness are elicited, and likely medical dilemmas are presented and options discussed. The form can be amended as needed, reviewed yearly and make changes as needed (8) Anxiety: Comment: Sees Dr. Grayson and gets regular counseling at [facility] Code(s): F41.9 - Anxiety disorder, unspecified Plan: Currently followed by Dr. Grayson and sees therapist at [facility] every 2 weeks, currently stable and controlled on escitalopram and takes lorazepam only as needed for acute anxiety attacks. Orders: Orders US pelvic and transvaginal 05/03/24 R10.31 - Right lower quadrant pain, Z86.018 - Personal history of other benign neoplasm Vitamin D 25-OH Total 05/03/24 Z13.220 - Encounter for screening for lipoid disorders, Z78.0 - Asymptomatic menopausal state Lipid Panel 07/01/24 Z13.220 - Encounter for screening for lipoid disorders, Z78.0 - Asymptomatic menopausal state Vitamin B12 and Folate 05/03/24 Z13.220 - Encounter for screening for lipoid disorders, Z78.0 - Asymptomatic menopausal state Medications: New losartan 50 mg PO DAILY 30 tabs 1RF Coding Level of Care Code Est Pt Prev Care 40-64y(35664) Diagnoses Annual visit for general adult medical examination with abnormal findings Z00.01 Essential hypertension I10 Right lower quadrant abdominal pain R10.31 History of uterine leiomyoma Z86.018 Encounter for screening for lipid disorder Z13.220 History of invasive ductal carcinoma of breast Z85.3 Advanced directives, counseling/discussion Z71.89 Anxiety F41.9 Additional Codes Vital Signs *Quality* - Advance Care Planning discussion: Completed/Scanned ([id number]) Vital Signs *Quality* - Time spent: 16-45 minutes ([id number])
== END 2024-05-03 09:29 | disposition home or self-care (01) ==
PROVIDERS: PCP Internal Medicine; Visit Provider Internal Medicine
DX: Z00.00 Encounter for general adult medical examination without abnormal findings (principal); I10 Essential (primary) hypertension; R10.31 Right lower quadrant pain; Z86.018 Personal history of other benign neoplasm; Z13.220 Encounter for screening for lipoid disorders; Z85.3 Personal history of malignant neoplasm of breast; Z71.89 Other specified counseling; F41.9 Anxiety disorder, unspecified
CPT/HCPCS: 1123F; 99396; 99497

== ENCOUNTER 2024-05-13 10:56 | Outpatient (REF) | payer OTHER, SELFPAY ==
--- NOTE | ~2024-05-13 | US_ITS ---
EXAMINATION: US PELVIS CLINICAL INFORMATION: Right lower quadrant pain with history of fibroids. COMPARISON: CT abdomen and pelvis 05/19/2023. TECHNIQUE: Ultrasound of the pelvis is performed using both transabdominal and transvaginal transducers along with Doppler. Transvaginal imaging is performed due to inadequate visualization transabdominally. FINDINGS: Uterus: The uterus is anteverted and retroflexed measuring 9.9 x 3.1 x 5.3 cm. The double wall endometrial thickness is 2 mm. The uterus is smooth in contour and has normal myometrial echogenicity. Right-sided mural fibroid is seen transabdominally only measuring 2.4 x 2.3 x 2.4 cm (previously 2.3 x 2.2 x 2.5 cm). It should be noted that at the time of the prior study, five uterine fibroids were seen, which could not be visualized on today's study probably secondary to uterine mobility and patients failure to relax and follow breathing instructions. Adnexa: Neither ovary could be seen. No free fluid in the cul-de-sac. US/US pelvic and transvaginal IMPRESSION: Limited exam with only one fibroid seen. The ovaries could not be visualized.
== END 2024-05-13 10:57 | disposition home or self-care (01) ==
LOC: HO.US 10:56
PROVIDERS: PCP Internal Medicine; Visit Provider Internal Medicine
DX: R10.31 Right lower quadrant pain (principal); Z86.018 Personal history of other benign neoplasm
CPT/HCPCS: 76830; 76856

== ENCOUNTER 2024-06-03 08:19 | Outpatient (REF) | payer OTHER, SELFPAY ==
[2024-06-03 09:31] LABS: Cholesterol 268 mg/dL (<200); HDL Cholesterol 98 mg/dL (>40); LDL Cholesterol Calculated 154 mg/dL (<100); Triglycerides 80 mg/dL (<150)
[2024-06-03 09:48] LABS: Vitamin D 25-OH Total 49.7 ng/mL (>30)
[2024-06-03 09:51] LABS: Folate 11.9 ng/mL (> or = 4.0); Vitamin B12 295 pg/mL (200-900)
== END 2024-06-03 08:20 | disposition home or self-care (01) ==
LOC: HO.LAB 08:19
PROVIDERS: PCP Internal Medicine; Visit Provider Internal Medicine
DX: Z78.0 Asymptomatic menopausal state (principal); Z13.220 Encounter for screening for lipoid disorders
CPT/HCPCS: 36415; 80061; 82306; 82607; 82746

== ENCOUNTER 2024-06-03 11:22 | Outpatient (AMB) | payer OTHER, SELFPAY ==
[2024-06-03 11:35] VITALS: BMI 27.6
--- NOTE | 2024-06-03 11:35 | MHC.OFFVIS ---
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 Patient reports that she is doing well she has some mild pain with walking and some stiffness with prolonged sitting. 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 Patient reports that she is doing well she has some mild pain with walking and some stiffness with prolonged sitting. She takes an occasional ibuprofen if she does too much PFS Medical History (Updated 06/11/24 @ 10:53 by Boom Calix MD) Essential hypertension History of invasive ductal carcinoma of breast Acute colitis Acute colitis FH: melanoma BRCA gene mutation negative Anxiety COVID-19 delivery delivered Polyp of stomach Polyp of colon Breast cancer Surgical History (Updated 06/11/24 @ 10:53 by Boom Calix MD) Invasive ductal carcinoma of right breast (~05/25/20) History of section History of elbow surgery History of hand surgery History of oral surgery History of esophagogastroduodenoscopy (EGD) (04/05/20) History of colonoscopy (2015) History of lumpectomy of right breast (05/25/20) H/O dilation and curettage History of cholecystectomy (06/28/20) Family History Father History of COPD Substance use disorder Mother History of anxiety History of hypertension Mental health disorder Sister History of colon cancer, Onset Age: 48 History of ovarian cancer History of breast cancer, Onset Age: 42 Mental health disorder Daughter History of cerebral palsy Paternal Grandmother History of [place] (myocardial infarction) Maternal Grandfather History of [place] (myocardial infarction) Paternal Uncle History of throat cancer Paternal Aunt History of breast cancer Family/Other Bone cancer Family/Other Melanoma Social History Household Members: Spouse and Children Housing: House Alcohol intake: current Alcohol intake frequency: holidays/special occasions only Alcohol type: beer Comment: COUNTS CORRECT Patient Tobacco Use Status: Former Tobacco user Cigarette Packs Per Day: 1 e-Cigarette/Vaping Use: Currently Using Substance Use Type: Marijuana service: No Current occupational status: 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 Mild stiffness with terminal flexion Assessment & Plan Assessment & Plan (1) S/P medial meniscus repair of left knee: Code(s): Z98.890 - Other specified postprocedural states Category: Surgical Plan: s/p MMR doing well. Continue strengthening and caution with twisting activity. March f/u 6 mo. (2) Osteoarthritis of patellofemoral joint: Code(s): M17.10 - Unilateral primary osteoarthritis, unspecified knee Category: Medical Plan: Intra-operative PF OA. May be contributing to anterior knee pain. Coding Level of Care Code Est Pt Level 3 (89394) Diagnoses S/P medial meniscus repair of left knee Z98.890 Osteoarthritis of patellofemoral joint M17.10
== END 2024-06-03 12:16 | disposition home or self-care (01) ==
PROVIDERS: PCP Internal Medicine; Visit Provider Orthopaedic Surgery
DX: S83.242D Other tear of medial meniscus, current injury, left knee, subsequent encounter (principal); M17.12 Unilateral primary osteoarthritis, left knee
CPT/HCPCS: 99213

== ENCOUNTER 2024-06-22 09:01 | Outpatient (AMB) | payer OTHER, SELFPAY ==
--- NOTE | 2024-06-22 09:07 | MHC.OFFVIS ---
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 She is doing well with concerns: Recent loss of her father. Attempting to eat a healthy diet with calcium and vitamin D and stays active with exercise-limited w/recent knee surgery. Currently not sexually active w/. Denies any vaginal irritation. Has tried Replens in the past and has not worked. Last pap smear; 2019. Last mammogram; 2023. Colonoscopy is UTD. [facility] Medical History (Updated 06/22/24 @ 09:18 by Nian Aly CNM) Tear of medial meniscus of left knee Essential hypertension History of invasive ductal carcinoma of breast Acute colitis Acute colitis FH: melanoma BRCA gene mutation negative Anxiety COVID-19 delivery delivered Polyp of stomach Polyp of colon Breast cancer Surgical History (Updated 06/22/24 @ 09:28 by Nina Aly CNM) Invasive ductal carcinoma of right breast (~05/25/20) History of section History of elbow surgery History of hand surgery History of oral surgery History of esophagogastroduodenoscopy (EGD) (04/05/20) History of colonoscopy (2015) History of lumpectomy of right breast (05/25/20) H/O dilation and curettage History of cholecystectomy (06/28/20) Family History Father History of COPD Substance use disorder Mother History of anxiety History of hypertension Mental health disorder Sister History of colon cancer, Onset Age: 48 History of ovarian cancer History of breast cancer, Onset Age: 42 Mental health disorder Daughter History of cerebral palsy Paternal Grandmother History of MA (myocardial infarction) Maternal Grandfather History of MA (myocardial infarction) Paternal Uncle History of throat cancer Paternal Aunt History of breast cancer Family/Other Bone cancer Family/Other Melanoma Social History Household Members: Spouse and Children Housing: House Alcohol intake: current Alcohol intake frequency: holidays/special occasions only Alcohol type: beer Comment: COUNTS CORRECT Patient Tobacco Use Status: Former Tobacco user Cigarette Packs Per Day: 1 e-Cigarette/Vaping Use: Currently Using Substance Use Type: Marijuana service: No Current occupational status: 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 Sexual 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/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 Gender identity: Female Cognitive needs: No Hearing needs: No Vision needs: Yes Female Reproductive History Menstrual Age of Menarche: 13 Total pregnancies: 3 Full term: 3 Number of Living Children: 3 Date of last pap smear: 01/12/20 (neg pap and hpv) Date of Mammogram: 04/12/24 (Birad 2) History of abnormal mammogram: Yes Review of Systems Const All systems reviewed & are unremarkable except as noted in HPI and below Reports as per HPI Eyes Reports no additional complaints ENT Reports no additional complaints Card Reports no additional complaints Resp Reports no additional complaints GI Reports as per HPI and Reports no additional complaints Reports as per HPI Musc Reports no additional complaints Skin/Breast Reports as per HPI Neuro Reports no additional complaints Psych Reports no additional complaints Endo Reports no additional complaints Ravindra/Lymph Reports no additional complaints Aller/Immun Reports no additional complaints Physical Exam Vital Signs: Last Vital Signs BP 124/80 06/22/24 09:08 BMI result Body Mass Index 27.5 Const General: cooperative, healthy appearing, no acute distress, well developed and alert Orientation/consciousness: patient oriented x3 HEENT Head: Yes normal to inspection Eyes General: appearance normal, both eyes and all related structures Neck Neck: Yes normal visual inspection Thyroid: Thyroid normal Chest Chest palpation & inspection: normal inspection of the chest and other (no puckering, dimpling, peau de orange, retraction, discharge, masses) Breast/axilla inspection: normal inspection of the breasts Breast/axilla palpation: normal palpation of the breasts Resp Effort & Inspection: normal respiratory effort GI Inspection: Yes normal to inspection Palpation (GI): Soft to palpation Rectal Exam - Female: deferred General: Yes bladder normal to palpation External Female Exam: normal external appearance and normal appearance of the urethra Speculum Exam - Vagina: normal appearance of the vagina, normal palpation, normal vaginal discharge and vagina atrophic Speculum Exam - Cervix: normal appearance of the cervix and normal palpation Bimanual exam- vagina & uterus: normal bimanual exam, normal palpation, uterine size normal, bladder normal to palpation, normal palpation and non-tender Bimanual Exam- Adnexa, other: no masses Skin General skin exam: no rashes or lesions noted Rashes: no rashes Neuro General: patient oriented x3 Cognition (Neuro): normal cognition Extrem General: Yes normal to inspection Psych Attitude: cooperative Thought process: Normal thought process present Assessment & Plan Assessment & Plan (1) Encounter for well woman exam with routine gynecological exam: Code(s): Z01.419 - Encounter for gynecological examination (general) (routine) without abnormal findings Category: Medical Plan Discussed: Current recommendations for pap smears per ASCCP guidelines. Breast awareness, periodic self breast exams and yearly mammogram. Maintain a healthy lifestyle, well balanced diet including Calcium 1,200 mg and Vitamin D 600 IU daily, and routine exercise. Contact the office with any postmenopausal bleeding. Patient verbalizes understanding and agrees to the plan of care. She was given opportunity to ask questions and all questions were answered to the best of my ability. RTO in 1 year for annual manager steel exam. This note is constructed using voice recognition software. While every effort has been made to ensure accuracy, executive vice president business development errors may have been included. Coding Level of Care Code Est Pt Prev Care 40-64y(31597) Diagnoses Encounter for well woman exam with routine gynecological exam Z01.419
[2024-06-22 09:08] VITALS: BP 124/80; BMI 27.5
== END 2024-06-22 10:49 | disposition home or self-care (01) ==
PROVIDERS: PCP Internal Medicine; Visit Provider Advanced Practice Midwife
DX: Z01.419 Encounter for gynecological examination (general) (routine) without abnormal findings (principal)
CPT/HCPCS: 99396

== ENCOUNTER → 2024-06-22 09:01 | Outpatient (BNVA) | payer OTHER, SELFPAY | PROVIDERS: PCP Internal Medicine; Visit Provider Advanced Practice Midwife ==

== ENCOUNTER 2024-08-03 09:39 | Outpatient (AMB) | payer OTHER, SELFPAY ==
--- NOTE | 2024-08-03 09:56 | MHC.OFFVIS ---
Vital Signs 08/03/24 10:01 Height 5 ft 4 in Weight 158 lb 11.725 oz BMI 27.2 BP 158/86 H Blood Pressure Location Lt brachial Position Sitting Pulse 81 Intake Visit Reasons: 6 month follow up breast exam Intake Note: Patient is seen in office for 6 month follow up visit, breast exam. Pt c/o: Family Consultant Required: No Accompanied by: Self / Same As Patient Allergies prednisone [PREDNISONE] Allergy (Intermediate, Verified 08/03/24 09:58) SHORTNESS OF BREATH, tachycardia HPI Comments Details: 59-year-old female patient returning for routine breast examination following a diagnosis of invasive ductal carcinoma in May 2020. She initially noted a palpable lump in the right breast in the upper outer quadrant subsequently underwent mammogram and ultrasound which revealed a suspicious lesion corresponding to the palpable mass.? Core biopsy revealed invasive ductal carcinoma.? She underwent a right breast lumpectomy with needle localization and sentinel node biopsy on 05/25/2020.? Pathology revealed a 2.0 cm invasive ductal carcinoma, ER/MS positive, HER2 Perfecto negative with negative margins.? One of 2 sentinel nodes were positive for malignancy.?Pathological stage pT1c N1a (sn) (i +). She was evaluated by Dr. Mathews and Dr. Light.? While awaiting chemotherapy she developed acute cholecystitis subsequently requiring a laparoscopic cholecystectomy performed on 06/29/2020.? She then underwent chemotherapy followed by radiation therapy.? Prior to the start of radiation therapy she developed COVID-19.? She was subsequently started on tamoxifen and is tolerating this fairly well.? She denies any new breast symptoms.? Her last mammogram dated 04/12/2024 revealed no mammographic evidence of malignancy (BI-RADS 2). Breast MRI performed 09/15/2023 revealed postoperative changes in the right breast with no new MR specific evidence of malignancy in either breast (BI-RADS 2 right breast, BI-RADS 1 left breast). [facility] Genetic testing (05/09/2020) revealed no clinically significant mutations or variants of unknown significance.? She denies any new breast symptoms. She reports her stepfather recently . COUNT INCLUDES THE [facility] Medical History Tear of medial meniscus of left knee Essential hypertension History of invasive ductal carcinoma of breast Acute colitis Acute colitis FH: melanoma BRCA gene mutation negative Anxiety COVID-19 delivery delivered Polyp of stomach Polyp of colon Breast cancer Surgical History History of dental surgery (03/2024) Invasive ductal carcinoma of right breast (~05/25/20) History of section History of elbow surgery History of hand surgery History of oral surgery History of esophagogastroduodenoscopy (EGD) (04/05/20) History of colonoscopy (2015) History of lumpectomy of right breast (05/25/20) H/O dilation and curettage History of cholecystectomy (06/28/20) Family History Father History of COPD Substance use disorder Mother History of anxiety History of hypertension Mental health disorder Sister History of colon cancer, Onset Age: 48 History of ovarian cancer History of breast cancer, Onset Age: 42 Mental health disorder Daughter History of cerebral palsy Paternal Grandmother History of NV (myocardial infarction) Maternal Grandfather History of NV (myocardial infarction) Paternal Uncle History of throat cancer Paternal Aunt History of breast cancer Family/Other Bone cancer Family/Other Melanoma Social History Household Members: Spouse and Children Housing: House Alcohol intake: current Alcohol intake frequency: holidays/special occasions only Alcohol type: beer Comment: COUNTS CORRECT Patient Tobacco Use Status: Former Tobacco user Cigarette Packs Per Day: 1 e-Cigarette/Vaping Use: Currently Using Substance Use Type: Marijuana service: No 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 occupational status: 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 Sexual 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/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 Gender identity: Female Cognitive needs: No Hearing needs: No Vision needs: Yes Female Reproductive History Menstrual Age of Menarche: 13 Review of Systems Const All systems reviewed & are unremarkable except as noted in HPI and below Card Reports no additional complaints Resp Reports no additional complaints GI Reports no additional complaints Denies nipple discharge Musc Details: Sciatica, currently undergoing physical therapy Skin/Breast Reports breast skin changes, Reports breast pain, Denies breast mass, Denies change in breast shape, Reports new lesions (Right arm as noted in HPI) and Denies nipple discharge Ravindra/Lymph Denies lymphadenopathy Physical Exam Vital Signs: Last Vital Signs Pulse 81 08/03/24 10:01 BP 158/86 H 08/03/24 10:01 BMI result Body Mass Index 27.2 Const General: cooperative, healthy appearing, comfortable, no acute distress, well developed, alert and awake Neck Neck: Yes normal visual inspection and Yes no lymphadenopathy Chest Other: Right breast with a well-healed incision in the upper outer quadrant and axilla with no redness, mass, skin change, nipple discharge, nipple retraction, or palpable lymph nodes. Left breast with no skin change, nipple discharge, nipple retraction, palpable mass, or enlarged lymph nodes. Skin Other: Right upper arm lesion as noted in chest above Extrem General: Yes no clubbing, cyanosis or edema Assessment & Plan Assessment & Plan (1) Invasive ductal carcinoma of right breast: Onset Date: ~05/25/20 Code(s): C50.911 - Malignant neoplasm of unspecified site of right female breast Category: Surgical (2) History of invasive ductal carcinoma of breast: Code(s): Z85.3 - Personal history of malignant neoplasm of breast Category: Medical (3) Family history of breast cancer: Code(s): Z80.3 - Family history of malignant neoplasm of breast Category: Medical Plan 59-year-old female with a history of a palpable mass in the right breast determined to be an invasive ductal carcinoma, 2 cm, ER positive, MS positive, HER2 Perfecto negative. She underwent a right breast lumpectomy with sentinel node biopsy. Pathological stage pT1c N1a (sn) (i +). She underwent adjuvant chemotherapy and radiation therapy. She is now on letrozole 2.5 mg daily.. Examination today reveals no evidence of recurrence disease. Mammogram dated 04/12/2024 revealed no mammographic evidence of malignancy (BI-RADS 2). Breast MRI performed on 09/15/2023 revealed no MR specific evidence of malignancy (BI-RADS 2 right breast, BI-RADS 1 left breast). She should follow up in 6 months, sooner p.r.n.. Orders: Orders MR breast BI wo/w con 09/16/24 Z80.3 - Family history of malignant neoplasm of breast, Z85.3 - Personal history of malignant neoplasm of breast Coding Level of Care Code Est Pt Level 3 (48656) Diagnoses Invasive ductal carcinoma of right breast C50.911 History of invasive ductal carcinoma of breast Z85.3 Family history of breast cancer Z80.3
[2024-08-03 10:01] VITALS: BP 158/86; PULSE 81; BMI 27.2
== END 2024-08-03 10:20 | disposition home or self-care (01) ==
PROVIDERS: PCP Internal Medicine; Visit Provider Surgery
DX: C50.911 Malignant neoplasm of unspecified site of right female breast (principal); Z85.3 Personal history of malignant neoplasm of breast; Z80.3 Family history of malignant neoplasm of breast
CPT/HCPCS: 99213

== ENCOUNTER → 2024-08-03 09:39 | Outpatient (BNVA) | payer OTHER, SELFPAY | PROVIDERS: PCP Internal Medicine; Visit Provider Surgery ==

== ENCOUNTER 2024-09-17 08:27 | Outpatient (REF) | payer OTHER, SELFPAY ==
--- NOTE | ~2024-09-17 | MR_ITS ---
EXAMINATION: MR BREAST WITHOUT AND WITH CONTRAST, BILATERAL CLINICAL INFORMATION: 59-year-old female status post right breast cancer, status post lumpectomy. Family history sister age 42. COMPARISON: MRI 09/15/2023 and 07/26/2021. Correlation to mammogram of 04/12/2024. TECHNIQUE: Imaging was performed with a dedicated breast coil. Prior to the administration of contrast, bilateral axial T1 and bilateral axial T2 weighted sequences were obtained. After the uneventful administration of 7.5 mL of Gadavist, dynamic contrast-enhanced VIBRANT series through the breasts in the axial plane were performed. Subtracted images were performed and reviewed. A delayed sagittal sequence through both breasts was acquired. Additionally, CAD post-processing, including maximum intensity projections, 3-D reconstructions and kinetic analysis, were performed an independent workstation and reviewed by the interpreting radiologist is a portion of this exam. FINDINGS: The patient's fibroglandular tissue demonstrates minimal background enhancement. There is motion artifact on the post subtraction images which decreases the sensitivity of this examination. LEFT BREAST: No suspicious masslike or non-masslike enhancement. No abnormal skin thickening or nipple retraction. No abnormal architectural distortion. Review of the T2 weighted images demonstrates no fibrocystic changes or dilated ducts. Review of kinetic images reveals no additional findings. RIGHT BREAST: There is architectural distortion in the superior aspect of the breast from prior lumpectomy. There is no associated enhancement. No suspicious masslike or non-masslike enhancement. Review of the T2 weighted images demonstrates no fibrocystic changes or dilated ducts. Review of kinetic images reveals no additional findings. There is no suspicious internal mammary chain or axillary adenopathy. Limited views of the chest and abdomen are unremarkable. MR/MR breast BI wo/w con IMPRESSION: Post lumpectomy changes right breast. No new findings suspicious of malignancy in either breast. ASSESSMENT: LEFT BREAST: BI-RADS 1 - Negative. RIGHT BREAST: BI-RADS 2 - Benign. RECOMMENDATIONS: Routine mammographic imaging as per most recent study and MRI as per high-risk protocol. Electronically signed by: Rakesh Rodriges MD 09/27/2024 11:50 AM [facility]
[2024-09-17] MEDS: gadobutroL 7.5 ML VIAL IVPUSH (09:28)
== END 2024-09-17 08:28 | disposition home or self-care (01) ==
LOC: HO.MRI 08:27
PROVIDERS: PCP Internal Medicine; Visit Provider Surgery
DX: Z85.3 Personal history of malignant neoplasm of breast (principal); Z80.3 Family history of malignant neoplasm of breast
CPT/HCPCS: 77049; A9585

== ENCOUNTER 2024-12-06 09:23 | Outpatient (AMB) | payer OTHER, SELFPAY ==
--- NOTE | 2024-12-06 09:30 | MHC.OFFVIS ---
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 Patient reports she is doing well. She is not taking anything for pain at this time. 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 Patient reports she is doing well. She is not taking anything for pain at this time. She states she is occasionally anterior knee pain but stays active and is really here for her 1 year follow up. [facility] Medical History Tear of medial meniscus of left knee Essential hypertension History of invasive ductal carcinoma of breast Acute colitis Acute colitis FH: melanoma BRCA gene mutation negative Anxiety COVID-19 delivery delivered Polyp of stomach Polyp of colon Breast cancer Surgical History History of dental surgery (03/2024) Invasive ductal carcinoma of right breast (~05/25/20) History of section History of elbow surgery History of hand surgery History of oral surgery History of esophagogastroduodenoscopy (EGD) (04/05/20) History of colonoscopy (2015) History of lumpectomy of right breast (05/25/20) H/O dilation and curettage History of cholecystectomy (06/28/20) Family History Father History of COPD Substance use disorder Mother History of anxiety History of hypertension Mental health disorder Sister History of colon cancer, Onset Age: 48 History of ovarian cancer History of breast cancer, Onset Age: 42 Mental health disorder Daughter History of cerebral palsy Paternal Grandmother History of NV (myocardial infarction) Maternal Grandfather History of NV (myocardial infarction) Paternal Uncle History of throat cancer Paternal Aunt History of breast cancer Family/Other Bone cancer Family/Other Melanoma Social History Household Members: Spouse and Children Housing: House Alcohol intake: current Alcohol intake frequency: holidays/special occasions only Alcohol type: beer Comment: COUNTS CORRECT Patient Tobacco Use Status: Former Tobacco user Cigarette Packs Per Day: 1 e-Cigarette/Vaping Use: Currently Using Substance Use Type: Marijuana service: No 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 No pain. No effusion. Normal gait mechanics. Assessment & Plan Assessment & Plan (1) S/P medial meniscus repair of left knee: Code(s): Z98.890 - Other specified postprocedural states Category: Surgical Plan: Status post medial meniscus repair on the left. Overall she is doing well. Trying to stay active. We had a long discussion about the implications of he add Tradjenta menopause and inability to supplement hormones given diagnosis of breast CA and how this impacts bone health. She is doing a lot of low-grade cardio but no resistance exercises. I recommend resistance training and a DEXA scan with body composition. Orders: Orders XR DEXA appendicular skeleton Today N95.9 - Unspecified menopausal and perimenopausal disorder Coding Level of Care Code Est Pt Level 4 (35120) Diagnoses S/P medial meniscus repair of left knee Z98.890
[2024-12-06 09:32] VITALS: BMI 27.8
== END 2024-12-06 09:57 | disposition home or self-care (01) ==
PROVIDERS: PCP Internal Medicine; Visit Provider Orthopaedic Surgery
DX: S83.242D Other tear of medial meniscus, current injury, left knee, subsequent encounter (principal)
CPT/HCPCS: 99214

== ENCOUNTER 2025-03-01 09:59 | Outpatient (AMB) | payer OTHER, SELFPAY ==
--- NOTE | 2025-03-01 10:00 | MHC.OFFVIS ---
Vital Signs 03/01/25 10:11 Height 5 ft 4 in Weight 158 lb BMI 27.1 BP 127/70 Blood Pressure Location Lt brachial Position Sitting Pulse 70 Intake Visit Reasons: 6 month breast exam Intake Note: Patient is seen in office for 6 month follow up visit, breast exam. Pt c/o: denies any concerns or changes mm sched:04/18/25 MRI:09/17/24 Pre School Manager Required: No Printing Machine Operator Tape Rules: Printing Machine Operator Tape Rules Present Accompanied by: Self / Same As Patient Allergies prednisone [PREDNISONE] Allergy (Intermediate, Verified 03/01/25 10:20) SHORTNESS OF BREATH, tachycardia HPI Comments Details: 59-year-old female patient returning for routine breast examination following a diagnosis of invasive ductal carcinoma in May 2020. She initially noted a palpable lump in the right breast in the upper outer quadrant subsequently underwent mammogram and ultrasound which revealed a suspicious lesion corresponding to the palpable mass.? Core biopsy revealed invasive ductal carcinoma.? She underwent a right breast lumpectomy with needle localization and sentinel node biopsy on 05/25/2020.? Pathology revealed a 2.0 cm invasive ductal carcinoma, ER/CO positive, HER2 Perfecto negative with negative margins.? One of 2 sentinel nodes were positive for malignancy.?Pathological stage pT1c N1a (sn) (i +). She was evaluated by Dr. Mathews and Dr. Light.? While awaiting chemotherapy she developed acute cholecystitis subsequently requiring a laparoscopic cholecystectomy performed on 06/29/2020.? She then underwent chemotherapy followed by radiation therapy.? Prior to the start of radiation therapy she developed COVID-19.? She is now on letrozole 2.5 mg daily.? Her last mammogram dated 04/12/2024 revealed no mammographic evidence of malignancy (BI-RADS 2). Breast MRI performed 09/17/2024 revealed postoperative changes in the right breast and no suspicious changes in the left breast (BI-RADS 2 right breast, BI-RADS 1 left breast). She was scheduled for an annual mammogram on 04/18/2025. [facility] Genetic testing (05/09/2020) revealed no clinically significant mutations or variants of unknown significance.? She denies any new breast symptoms. [facility] Medical History Tear of medial meniscus of left knee Essential hypertension History of invasive ductal carcinoma of breast Acute colitis Acute colitis FH: melanoma BRCA gene mutation negative Anxiety COVID-19 delivery delivered Polyp of stomach Polyp of colon Breast cancer Surgical History History of dental surgery (03/2024) Invasive ductal carcinoma of right breast (~05/25/20) History of section History of elbow surgery History of hand surgery History of oral surgery History of esophagogastroduodenoscopy (EGD) (04/05/20) History of colonoscopy (2015) History of lumpectomy of right breast (05/25/20) H/O dilation and curettage History of cholecystectomy (06/28/20) Family History Father History of COPD Substance use disorder Mother History of anxiety History of hypertension Mental health disorder Sister History of colon cancer, Onset Age: 48 History of ovarian cancer History of breast cancer, Onset Age: 42 Mental health disorder Daughter History of cerebral palsy Paternal Grandmother History of [place] (myocardial infarction) Maternal Grandfather History of [place] (myocardial infarction) Paternal Uncle History of throat cancer Paternal Aunt History of breast cancer Family/Other Bone cancer Family/Other Melanoma Social History Household Members: Spouse and Children Housing: House Alcohol intake: current Alcohol intake frequency: holidays/special occasions only Alcohol type: beer Comment: COUNTS CORRECT Patient Tobacco Use Status: Former Tobacco user Cigarette Packs Per Day: 1 e-Cigarette/Vaping Use: Currently Using Substance Use Type: Marijuana service: No Current occupational status: 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 Sexual 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/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 Gender identity: Female Cognitive needs: No Hearing needs: No Vision needs: Yes Female Reproductive History Menstrual Age of Menarche: 13 Review of Systems Const All systems reviewed & are unremarkable except as noted in HPI and below Card Reports no additional complaints Resp Reports no additional complaints GI Reports no additional complaints Denies nipple discharge Musc Details: Sciatica, currently undergoing physical therapy Skin/Breast Reports breast skin changes, Reports breast pain, Denies breast mass, Denies change in breast shape, Reports new lesions (Right arm as noted in HPI) and Denies nipple discharge Ravindra/Lymph Denies lymphadenopathy Physical Exam Const General: cooperative, healthy appearing, comfortable, no acute distress, well developed, alert and awake Neck Neck: Yes normal visual inspection and Yes no lymphadenopathy Chest Other: Right breast with a well-healed incision in the upper outer quadrant and axilla with no redness, mass, skin change, nipple discharge, nipple retraction, or palpable lymph nodes. Left breast with no skin change, nipple discharge, nipple retraction, palpable mass, or enlarged lymph nodes. Skin Other: Right upper arm lesion as noted in chest above Neuro Other: Mobility Assessment: 1. 3 meter assessment time (seconds) 4 2. Gait observations: Normal balance and gait Extrem General: Yes no clubbing, cyanosis or edema Assessment & Plan Assessment & Plan (1) Invasive ductal carcinoma of right breast: Onset Date: ~05/25/20 Code(s): C50.911 - Malignant neoplasm of unspecified site of right female breast Category: Surgical (2) History of invasive ductal carcinoma of breast: Code(s): Z85.3 - Personal history of malignant neoplasm of breast Category: Medical (3) Family history of breast cancer: Code(s): Z80.3 - Family history of malignant neoplasm of breast Category: Medical Plan 59-year-old female with a history of a palpable mass in the right breast determined to be an invasive ductal carcinoma, 2 cm, ER positive, CO positive, HER2 Perfecto negative. She underwent a right breast lumpectomy with sentinel node biopsy. Pathological stage pT1c N1a (sn) (i +). She underwent adjuvant chemotherapy and radiation therapy. She is now on letrozole 2.5 mg daily.. Examination today reveals no evidence of recurrence disease. Mammogram dated 04/12/2024 revealed no mammographic evidence of malignancy (BI-RADS 2). Breast MRI performed on 09/17/2024 revealed no MR specific evidence of malignancy (BI-RADS 2 right breast, BI-RADS 1 left breast). She should follow up in 6 months, sooner p.r.n.. Coding Level of Care Code Est Pt Level 3 (57006) Complex EM visit Add On G2211 Diagnoses Invasive ductal carcinoma of right breast C50.911 History of invasive ductal carcinoma of breast Z85.3 Family history of breast cancer Z80.3
[2025-03-01 10:11] VITALS: BP 127/70; PULSE 70; BMI 27.1
== END 2025-03-01 10:24 | disposition home or self-care (01) ==
LOC: HO.HGS 10:00
PROVIDERS: PCP Internal Medicine; Visit Provider Surgery
DX: C50.911 Malignant neoplasm of unspecified site of right female breast (principal); Z85.3 Personal history of malignant neoplasm of breast; Z80.3 Family history of malignant neoplasm of breast
CPT/HCPCS: 99213

== ENCOUNTER → 2025-03-01 09:59 | Outpatient (BNVA) | payer OTHER, SELFPAY | PROVIDERS: PCP Internal Medicine; Visit Provider Surgery ==

== ENCOUNTER 2025-03-14 09:01 | Outpatient (AMB) | payer OTHER, SELFPAY ==
[2025-03-14 09:11] VITALS: BMI 27.1
--- NOTE | 2025-03-14 09:11 | MHC.OFFVIS ---
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 History of Left Medial Meniscus Root Repair 12/03/23. Patient rpeorts that she is doing well, she feels that she may have some buildup of fluid in the left knee. She garcia been working in the garden often and lifting bags of mulch so she may have been over doing. She is not tkaing anything for her pain as she is on losartan and she is unsure what she can take with that. A DEXA Scan with body composition was ordered - scan was not done as patient did not return booking attempts at [facility]. She is also seeing an oncologist who has placed her on medication that may affect her bone density. She is asking if this study shows results of bones or just tissues, muscle and fat. 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 History of Left Medial Meniscus Root Repair 12/03/23. Patient rpeorts that she is doing well, she feels that she may have some buildup of fluid in the left knee. She garcia been working in the garden often and lifting bags of mulch so she may have been over doing. She is not taking anything for her pain as she is on losartan and she is unsure what she can take with that. [facility] Medical History Tear of medial meniscus of left knee Essential hypertension History of invasive ductal carcinoma of breast Acute colitis Acute colitis FH: melanoma BRCA gene mutation negative Anxiety COVID-19 delivery delivered Polyp of stomach Polyp of colon Breast cancer Surgical History History of dental surgery (03/2024) Invasive ductal carcinoma of right breast (~05/25/20) History of section History of elbow surgery History of hand surgery History of oral surgery History of esophagogastroduodenoscopy (EGD) (04/05/20) History of colonoscopy (2016) History of lumpectomy of right breast (05/25/20) H/O dilation and curettage History of cholecystectomy (06/28/20) Family History Father History of COPD Substance use disorder Mother History of anxiety History of hypertension Mental health disorder Sister History of colon cancer, Onset Age: 48 History of ovarian cancer History of breast cancer, Onset Age: 42 Mental health disorder Daughter History of cerebral palsy Paternal Grandmother History of [place] (myocardial infarction) Maternal Grandfather History of [place] (myocardial infarction) Paternal Uncle History of throat cancer Paternal Aunt History of breast cancer Family/Other Bone cancer Family/Other Melanoma Social History Household Members: Spouse and Children Housing: House Alcohol intake: current Alcohol intake frequency: holidays/special occasions only Alcohol type: beer Comment: COUNTS CORRECT Patient Tobacco Use Status: Former Tobacco user Cigarette Packs Per Day: 1 e-Cigarette/Vaping Use: Currently Using Substance Use Type: Marijuana service: No 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 No joint line pain. Walking comfortably without a limp. Assessment & Plan Assessment & Plan (1) S/P medial meniscus repair of left knee: Code(s): Z98.890 - Other specified postprocedural states Category: Surgical Plan: Patient is over a year status post root repair doing well. No additional intervention warranted at this time. I discussed that she has some osteoarthritis in the patellofemoral joint this is likely causing her current swelling. If this worsens we can consider treatment options but no intervention warranted at this Coding Level of Care Code Est Pt Level 3 (47053) Diagnoses S/P medial meniscus repair of left knee Z98.890
== END 2025-03-14 09:38 | disposition home or self-care (01) ==
LOC: HO.HOS 09:02
PROVIDERS: PCP Internal Medicine; Visit Provider Orthopaedic Surgery
DX: Z47.89 Encounter for other orthopedic aftercare (principal); S83.242D Other tear of medial meniscus, current injury, left knee, subsequent encounter
CPT/HCPCS: 99213

== ENCOUNTER 2025-04-18 08:27 | Outpatient (REF) | payer OTHER, SELFPAY ==
--- NOTE | ~2025-04-18 | MM_ITS ---
EXAMINATION: MM SCREENING DIGITAL BREAST TOMOSYNTHESIS, BILATERAL CLINICAL INFORMATION: Screening. Asymptomatic. History of right breast cancer in 2020 status post lumpectomy. COMPARISON: Mammography: Comparison is made with available priors TECHNIQUE: Digital breast mammography with tomosynthesis is performed in both the craniocaudal and mediolateral oblique views along with computer-aided detection (CAD). FINDINGS: There are scattered areas of fibroglandular density (ACR BI-RADS breast composition Category b). Right post lumpectomy changes are stable. There are no significant masses, abnormal calcifications, or other abnormalities. MM/MM tomosynthesis screening BI IMPRESSION: No mammographic evidence of malignancy. ASSESSMENT: BI-RADS BI-RADS 2 - Benign Findings RECOMMENDATION: Routine annual mammography screening. 1 year F/U This examination should not preclude the clinical evaluation of a suspicious palpable abnormality. This patient's information was entered into a reminder system with a target due date for their next mammogram. Electronically signed by: Melly Domingo DO 04/18/2025 09:55 AM EDT
== END 2025-04-18 08:28 | disposition home or self-care (01) ==
LOC: HO.MAMMO 08:27
PROVIDERS: PCP Internal Medicine; Visit Provider Internal Medicine
DX: Z12.31 Encounter for screening mammogram for malignant neoplasm of breast (principal)
CPT/HCPCS: 77063; 77067

== ENCOUNTER → 2025-04-18 08:30 | Outpatient (BNV) | payer OTHER, SELFPAY | PROVIDERS: PCP Internal Medicine; Visit Provider Internal Medicine | DX: Z12.31 Encounter for screening mammogram for malignant neoplasm of breast (principal) | CPT/HCPCS: 77063; 77067 ==

== ENCOUNTER 2025-06-14 10:48 | Outpatient (AMB) | payer OTHER, SELFPAY ==
--- NOTE | 2025-06-14 10:52 | MHC.PC.OV ---
Vital Signs 06/14/25 10:56 Height 5 ft 4 in Weight 156 lb BMI 26.8 BP 132/68 Blood Pressure Location Lt brachial Position Sitting Respiration 16 Pulse 70 Pulse Source Pulse Oximeter Temp 98.3 F Temp Source Oral Pulse Oximetry (%) 98 Oxygen Delivery Method Room Air Intake Visit Reasons: Annual PE - see comments Intake Note: Pt is here today for her PE: Last mammogram 04/18/25, colonoscopy 09/11/23 Allergies prednisone (PREDNISONE) Allergy (Intermediate, Verified 06/14/25 11:28) SHORTNESS OF BREATH, tachycardia Medication List - Last Reconciled 06/14/25 by Shantel Figueroa MD escitalopram oxalate (Lexapro) 10 mg PO DAILY letrozole 2.5 mg PO DAILY lorazepam 1 tab PO Q8H PRN losartan 50 mg PO DAILY [Probiotic 500 mg PO DAILY] [Vitamin D (with calcium) 1 tab PO DAILY] vitamin K2 100 mcg PO DAILY Tobacco use date assessed: 06/14/25 Dental Screening Dental Screen Date: 06/14/25 Did you have a dental visit in the last 12 months?: Yes Did you have a dental problem in the last 6 months where you did not have access to dental care?: Yes Was dental information given to patient?: Patient has dentist HPI Annual PE - see comments HPI Details - The patient is a 60-year-old female presenting for her physical exam . - Breast cancer was diagnosed in 2019, treated with lumpectomy, lymph node dissection, chemotherapy, and radiation. She is up-to-date with her screening . She was initially on tamoxifen for over two years, switched to letrozole due to menopausal status and bone health concerns.- The patient reports experiencing hot flashes as a side effect of letrozole. - The patient has a history of fibroids and is considering follow-up with Dr. Cavazos. - The patient has undergone colon cancer screening due to family history, with the last screening in 2022. - The patient reports anxiety, exacerbated by family stressors, and is currently taking escitalopram and lorazepam , the latter as needed. The patient has a daughter with special needs and is the primary caregiver, adding to her stress levels. - has history of dyslipidemia, has changed her diet, avoiding a lot of saturated fats and affording junk food and processed foods, but admits to not getting any regular exercise, prefers to avoid statins. [facility] Medical History (Updated 06/14/25 @ 11:27 by Shantel Figueroa MD) Dyslipidemia Tear of medial meniscus of left knee Essential hypertension History of invasive ductal carcinoma of breast Acute colitis Acute colitis FH: melanoma BRCA gene mutation negative Anxiety COVID-19 delivery delivered Polyp of stomach Polyp of colon Breast cancer Surgical History History of dental surgery (03/2024) Invasive ductal carcinoma of right breast (~05/25/20) History of section History of elbow surgery History of hand surgery History of oral surgery History of esophagogastroduodenoscopy (EGD) (04/05/20) History of colonoscopy (2015) History of lumpectomy of right breast (05/25/20) H/O dilation and curettage History of cholecystectomy (06/28/20) Family History Father History of COPD Substance use disorder Mother History of anxiety History of hypertension Mental health disorder Sister History of colon cancer, Onset Age: 48 History of ovarian cancer History of breast cancer, Onset Age: 42 Mental health disorder Daughter History of cerebral palsy Paternal Grandmother History of [place] (myocardial infarction) Maternal Grandfather History of [place] (myocardial infarction) Paternal Uncle History of throat cancer Paternal Aunt History of breast cancer Family/Other Bone cancer Family/Other Melanoma Social History Household Members: Spouse and Children Housing: House Alcohol intake: current Alcohol intake frequency: holidays/special occasions only Alcohol type: beer Comment: COUNTS CORRECT Patient Tobacco Use Status: Former Tobacco user Cigarette Packs Per Day: 1 e-Cigarette/Vaping Use: Currently Using Substance Use Type: Marijuana service: No Current occupational status: 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 1. Little interest or pleasure in doing things: not at all 2. Feeling down, depressed, or hopeless: not at all 3. Trouble falling or staying asleep, or sleeping too much: several days 4. Feeling tired or having little energy: not at all 5. Poor appetite or overeating: not at all 6. Feeling bad about yourself - or that you are a failure or have let yourself or your family down: not at all 7. Trouble concentrating on things, such as reading the newspaper or watching television: not at all 8. Moving or speaking so slowly that other people could have noticed. Or the opposite - being so fidgety or restless that you have been moving around a lot more than usual: not at all 9. Thoughts that you would be better off or of hurting yourself in some way: not at all Total score: 1 Depression Screening Interpretation: Negative Depression Screening Done: Yes 32065 - PHQ-9 Billing: Yes Source: Developed by Drs. Trell Carter, Su Montoya, Wayne Milligan and colleagues, with an educational terrence from [employer]. Thrive Questionnaire Date Thrive assessed: 06/07/25 I am a: Patient What is your living situation today?: I have a steady place to live Within the past 12 months, did the food you bought not last and you didn't have the money to get more?: Never true Within the past 12 months, did you worry whether your food would run out before you got money to buy more?: Never true Do you have trouble paying for medicines?: I choose not to answer this question Do you have trouble getting transportation to medical appointments?: No Do you have trouble paying your heating and electricity bill?: I choose not to answer this question Do you have trouble taking care of your child, family member or friend?: No Do you have trouble with day-to-day activities such as bathing, preparing meals, shopping, managing finances, etc.?: No Are you currently unemployed and looking for a job?: No Are you interested in more education?: No Please select the resources that you would like help with: None Currently or been in a relationship where the following occur: No concerns reported THRIVE Score: 0 AUDIT C Alcohol Use Questionnaire (AUDIT-C) 1. How often do you have a drink containing alcohol?: Monthly or less 2. How many drinks containing alcohol do you have on a typical day when you are drinking?: 1 or 2 3. How often do you have six or more drinks on one occasion?: Never Total Score: 1 Score Reviewed/Action Taken: Yes ROBERTO-7 AMB Questionnaire ROBERTO-7 Date ROBERTO - 7 assessed: 06/14/25 Feeling nervous, anxious, or on edge: 0 = Not at all Not being able to stop or control worryin = Several days Worrying too much about different things: 1 = Several days Trouble relaxin = Several days Being so restless that it is hard to sit still: 1 = Several days Becoming easily annoyed or irritable: 0 = Not at all Feeling afraid as if something awful might happen: 0 = Not at all Total ROBERTO-7 score (0-4 normal; 5-9 mild; 10-14 moderate; 15-21 severe): 4 Source: Developed by Drs. Trell Carter, Su Montoya, Wayne Milligan and colleagues, with an educational terrence from [employer]. ROBERTO-7 Assessment Billing ROBERTO-7 Assessment Tool: ROBERTO-7 Assessment 32407 Review of Systems Const All systems reviewed & are unremarkable except as noted in HPI and below Eyes Details: [facility] to [facility] in [facility] ENT Reports no additional complaints Card Reports no additional complaints Resp Reports no additional complaints GI Reports no additional complaints Reports no additional complaints and Denies nipple discharge Musc Details: Sciatica, currently undergoing physical therapy Skin/Breast Denies breast mass, Denies change in breast shape and Denies nipple discharge Neuro Reports no additional complaints Psych Reports as per HPI Endo Reports no additional complaints Ravindra/Lymph Reports no additional complaints Aller/Immun Reports no additional complaints Physical exam (Primary Care) Vital Signs: Last Vital Signs Temp 98.3 F 06/14/25 10:56 Pulse 70 06/14/25 10:56 Resp 16 06/14/25 10:56 BP 132/68 06/14/25 10:56 Pulse Ox 98 06/14/25 10:56 Oxygen Delivery Method Room Air 06/14/25 10:56 BMI result Body Mass Index 26.8 Tobacco/Smoking Status: Tobacco use Status Tobacco use date assessed 06/14/25 06/14/25 10:55 Patient Tobacco Use Status Former Tobacco user 06/14/25 10:55 e-Cigarette/Vaping Use Currently Using 06/14/25 10:55 PHQ-9: PHQ-9 Score PHQ-9: Total score 2 06/14/25 11:28 Depression Screening Interpretation: Negative Thrive Assessment: Date of Thrive Assessment Date Thrive assessed 06/07/25 06/14/25 10:55 Currently or been in a relationship where the following occur: No concerns reported Const General: no acute distress and alert Orientation/consciousness: patient oriented x3 HENCO Head: Yes normocephalic Ears: external ears normal General nose exam: Normal external nose present Face and sinus: Yes face symmetric Mouth: Normal oral and palatal mucosa present, oropharynx normal and moist mucous membranes Eyes General: appearance normal, both eyes and all related structures Neck Neck: Yes normal visual inspection, Yes full ROM, Yes no lymphadenopathy and Yes supple Thyroid: Thyroid normal Chest Other: Surgical scar on upper outer quadrant of right breast Breast/axilla palpation: normal palpation of the breasts Resp Effort & Inspection: normal respiratory effort and able to speak in complete sentences Auscultation: clear to auscultation bilaterally Cardio Palpation: normal PMI Rate: regular rate Rhythm: regular rhythm Heart sounds: S1 normal heart sound present and S2 normal heart sound present Bruits: no abdominal aortic bruits GI Inspection: Yes normal to inspection and Yes scar (Laparoscopic cholecystectomy scar well healed) Palpation (GI): No Abdominal aortic bruit present, Soft to palpation, Tenderness to palpation present (GI) in the RLQ, no guarding and no masses Auscultation: normal bowel sounds Other: Go[facility] for her routine Pap and pelvic exam General: Yes no CVA tenderness and Yes deferred Back/Spine/Pelvis Back: no CVA tenderness and No back tenderness Skin General skin exam: no rashes or lesions noted Neuro General: patient oriented x3, gait normal, moves all extremities, no focal motor deficits and CN's II-XI intact bilaterally Extrem General: Yes full ROM, Yes no joint enlargement, Yes no clubbing, cyanosis or edema and Yes normal gait Psych Appearance: grossly normal and well kempt Mental Status: mental status grossly normal Speech and movement: Normal speech and movement present Affect: normal affect Coding Level of Care Code Est Pt Prev Care 40-64y(84998) Diagnoses Annual visit for general adult medical examination with abnormal findings Z00.01 Essential hypertension I10 Anxiety F41.9 History of invasive ductal carcinoma of breast Z85.3 Dyslipidemia E78.5 Uterine fibroid D25.9 Additional Codes ROBERTO-7 Assessment Billing - ROBERTO-7 Assessment Tool: ROBERTO-7 Assessment 04546 ([id number]) PHQ-9 - 70785 - PHQ-9 Billing: Yes ([id number]) Assessment & Plan Assessment & Plan (1) Annual visit for general adult medical examination with abnormal findings: Code(s): Z00.01 - Encounter for general adult medical examination with abnormal findings (2) Essential hypertension: Code(s): I10 - Essential (primary) hypertension Category: Medical (3) Anxiety: Comment: Sees Dr. Grayson and gets regular counseling at [facility] Code(s): F41.9 - Anxiety disorder, unspecified Category: Medical (4) History of invasive ductal carcinoma of breast: Code(s): Z85.3 - Personal history of malignant neoplasm of breast Category: Medical (5) Dyslipidemia: Code(s): E78.5 - Hyperlipidemia, unspecified Category: Medical (6) Uterine fibroid: Code(s): D25.9 - Leiomyoma of uterus, unspecified Category: Medical Plan - Colon cancer screening completed in 2022, next due in 2027. - Regular eye exams, latest with Dr. Walker, no issues reported. - Dermatology check-ups at [facility], no significant findings. - Dental cleanings every six months, recent crown placement. -currently on letrozole for breast cancer management, with monitoring for endometrial thickening due to potential side effects. Follow-up with gynecology is advised to address fibroids and ensure appropriate screening for endometrial changes. The patient is encouraged to maintain regular colon cancer screenings due to family history, with the next screening scheduled for 2027. Anxiety management will continue with escitalopram and lorazepam as needed, with consideration for therapy support. Fasting labs ordered to check lipids liver enzymes and vitamin-D level. Reinforced importance of following a healthy diet and getting at least 150 minutes of moderate intensity exercise in a week . Patient was informed and verbally consented to the use of an ambient scribe for clinic note documentation during this visit. Orders: Orders Alanine Aminotransferase 06/14/25 E78.5 - Hyperlipidemia, unspecified, F41.9 - Anxiety disorder, unspecified, I10 - Essential (primary) hypertension, Z85.3 - Personal history of malignant neoplasm of breast Lipid Panel 06/14/25 E78.5 - Hyperlipidemia, unspecified, F41.9 - Anxiety disorder, unspecified, I10 - Essential (primary) hypertension, Z85.3 - Personal history of malignant neoplasm of breast Aspartate Amino Transferase 06/14/25 E78.5 - Hyperlipidemia, unspecified, F41.9 - Anxiety disorder, unspecified, I10 - Essential (primary) hypertension, Z85.3 - Personal history of malignant neoplasm of breast Vitamin D 25-OH Total 06/14/25 E78.5 - Hyperlipidemia, unspecified, F41.9 - Anxiety disorder, unspecified, I10 - Essential (primary) hypertension, Z85.3 - Personal history of malignant neoplasm of breast
[2025-06-14 10:56] VITALS: BP 132/68; PULSE 70; RESP 16; TEMP 36.8; O2SAT 98; BMI 26.8
--- OUTSIDE RECORDS SUMMARY | 2025-06-14 11:55 | XMS_ITS | Encounter Summary ---
Author Organization [facility] Address [address] [place] [address] [place] [phone] Phone Care Team Providers Care Tip Scourer Name Role Phone Luis Enrique Light MD Primary Care Provider [phone] Encounter Details Date Type Department Care Team (Latest Contact Info) Description 12/07/2024 Transcribe Orders Virtual Department [address] [place] [id number] Boom Calix MD [address] [place] [address] [place] [address] Unspecified menopausal and perimenopausal disorder (Primary Dx) Social History Tobacco Use Types Packs/Day Years Used Date Smoking Tobacco: Never Assessed Education Answer Date Recorded Are you interested in more education? Not on conner e 02/28/2023 Are you concerned about learning? Not on file 02/28/2023 No 02/28/2023 No 02/28/2023 Digital Access Answer Date Recorded No 04/01/2023 No 04/01/2023 Reliable internet access at home? Not on file 04/01/2023 Device with a working camera? Not on file Comments Unknown Sex and Gender Information Value Date Recorded Sex Assigned at Not on file Legal Sex Female 11:42 AM EDT Gender Identity Not on file Sexual Orientation Not on file documented as of this encounter Plan of Treatment Not on file documented as of this encounter Visit Diagnoses Diagnosis Unspecified menopausal and perimenopausal disorder- Primary documented in this encounter Care Teams Tip Scourer Relationship Specialty Start Date End Date Luis Enrique Light MD [address] [place] [address] [email or web address] PCP - General Radiation Oncology 10/24/20 documented as of this encounter Additional Source Comments The information contained in this document represents components of the legal health record. It is not the complete legal health record.[facility]
--- OUTSIDE RECORDS SUMMARY | 2025-06-14 11:55 | XMS_ITS ---
Author Name [facility] Organization Unknown Care Team Organization Name Specialty Phone Email Start Date End Da te [facility] Termed, PROVIDER Primary Care 09/10/202206/03
== END 2025-06-14 12:57 | disposition home or self-care (01) ==
PROVIDERS: PCP Internal Medicine; Visit Provider Internal Medicine
DX: Z00.01 Encounter for general adult medical examination with abnormal findings (principal); I10 Essential (primary) hypertension; F41.9 Anxiety disorder, unspecified; Z85.3 Personal history of malignant neoplasm of breast; E78.5 Hyperlipidemia, unspecified; D25.9 Leiomyoma of uterus, unspecified

== ENCOUNTER → 2025-06-14 10:48 | Outpatient (BNVA) | payer OTHER, SELFPAY | PROVIDERS: PCP Internal Medicine; Visit Provider Internal Medicine | DX: Z00.01 Encounter for general adult medical examination with abnormal findings (principal); I10 Essential (primary) hypertension; F41.9 Anxiety disorder, unspecified; D25.9 Leiomyoma of uterus, unspecified; E78.5 Hyperlipidemia, unspecified; Z85.3 Personal history of malignant neoplasm of breast | CPT/HCPCS: 96127 ==

== ENCOUNTER 2025-07-13 10:21 | Outpatient (REF) | payer OTHER, SELFPAY | END 2025-07-13 10:22 | disposition home or self-care (01) | LOC: HO.LNP 10:21 | PROVIDERS: PCP Internal Medicine; Visit Provider Advanced Practice Midwife | DX: Z01.419 Encounter for gynecological examination (general) (routine) without abnormal findings (principal) | CPT/HCPCS: 87626; 88175; 99396 ==

== ENCOUNTER 2025-07-13 10:21 | Outpatient (AMB) | payer OTHER, SELFPAY ==
--- NOTE | 2025-07-13 10:24 | MHC.OFFVIS ---
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 wants to ask questions on taking magnesium and other rec for [place] women Internet Technology Manager Required: No Information Interpreted: non-clinical & clinical Power Cleaner Operator: Power Cleaner Operator Present (Cierra) Allergies prednisone (PREDNISONE) Allergy (Intermediate, Verified 07/13/25 11:58) SHORTNESS OF BREATH, tachycardia Medication List - Last Reconciled 07/13/25 by Heidi Breen LPN escitalopram oxalate (Lexapro) 10 mg PO DAILY letrozole 2.5 mg PO DAILY lorazepam 1 tab PO Q8H PRN losartan 50 mg PO DAILY [Probiotic 500 mg PO DAILY] [Vitamin D (with calcium) 1 tab PO DAILY] vitamin K2 100 mcg PO DAILY Is last menstrual period known: No Post menopausal: No Patient : No Do you need a note to return to daycare/school/sports/work: No HPI Comments Details: Patient is a 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 Test Carrier concerns: has follow up w/Oncology. Currently sexually active. Denies any vaginal dryness or irritation. Attempting to eat a healthy diet with calcium and vitamin D and stays active with exercise. Last pap smear; 2019, negative. Mammogram is up to date. Colonoscopy is UTD. Denies any family history of breast, ovarian or colon cancer. [facility] Medical History Torn meniscus Dyslipidemia Tear of medial meniscus of left knee Essential hypertension History of invasive ductal carcinoma of breast Acute colitis Acute colitis FH: melanoma BRCA gene mutation negative Anxiety COVID-19 delivery delivered Polyp of stomach Polyp of colon Breast cancer Surgical History History of dental surgery (03/2024) Invasive ductal carcinoma of right breast (~05/25/20) History of section History of elbow surgery History of hand surgery History of oral surgery History of esophagogastroduodenoscopy (EGD) (04/05/20) History of colonoscopy (2015) History of lumpectomy of right breast (05/25/20) H/O dilation and curettage History of cholecystectomy (06/28/20) Family History Father History of COPD Substance use disorder Mother History of anxiety History of hypertension Mental health disorder Sister History of colon cancer, Onset Age: 48 History of ovarian cancer History of breast cancer, Onset Age: 42 Mental health disorder Daughter History of cerebral palsy Paternal Grandmother History of [place] (myocardial infarction) Maternal Grandfather History of [place] (myocardial infarction) Paternal Uncle History of throat cancer Paternal Aunt History of breast cancer Family/Other Bone cancer Family/Other Melanoma Social History Household Members: Spouse and Children Housing: House Alcohol intake: current Alcohol intake frequency: holidays/special occasions only Alcohol type: beer Comment: COUNTS CORRECT Patient Tobacco Use Status: Former Tobacco user Cigarette Packs Per Day: 1 e-Cigarette/Vaping Use: Currently Using Use of substances other than those prescribed or required for medical reasons: Yes Substance Use Type: Marijuana Have you been hit, kicked, punched, or otherwise hurt by someone within the past year? 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 Sexual 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/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 Gender identity: Female Cognitive needs: No Hearing needs: No Vision needs: Yes Female Reproductive History Menstrual Age of Menarche: 13 Date of last menstrual period: 09/22/20 Menopause type: natural Date of menopause: 07/13/20 Total pregnancies: 3 Full term: 3 Number of Living Children: 3 Date of last pap smear: 01/12/20 (neg pap and hpv) Date of Mammogram: 04/18/25 (Birad 2) History of abnormal mammogram: Yes (hx breast cancer) Review of Systems Const All systems reviewed & are unremarkable except as noted in HPI and below Reports as per HPI Eyes Reports no additional complaints ENT Reports no additional complaints Card Reports no additional complaints Resp Reports no additional complaints GI Reports as per HPI and Reports no additional complaints Reports as per HPI Musc Reports no additional complaints Skin/Breast Reports as per HPI Neuro Reports no additional complaints Psych Reports no additional complaints Endo Reports no additional complaints Ravindra/Lymph Reports no additional complaints Aller/Immun Reports no additional complaints Physical Exam Vital Signs: Last Vital Signs BP 100/68 07/13/25 10:33 BMI result Body Mass Index 26.6 Const General: cooperative, healthy appearing, no acute distress, well developed and alert Orientation/consciousness: patient oriented x3 HEENT Head: Yes normal to inspection Eyes General: appearance normal, both eyes and all related structures Neck Neck: Yes normal visual inspection Thyroid: Thyroid normal Chest Other: post surgical scarring. Chest palpation & inspection: normal inspection of the chest and other (no puckering, dimpling, peau de orange, retraction, discharge, masses) Breast/axilla inspection: normal inspection of the breasts Breast/axilla palpation: normal palpation of the breasts Resp Effort & Inspection: normal respiratory effort GI Inspection: Yes normal to inspection Palpation (GI): Soft to palpation Rectal Exam - Female: deferred General: Yes bladder normal to palpation External Female Exam: normal external appearance and normal appearance of the urethra Speculum Exam - Vagina: normal appearance of the vagina, normal palpation, normal vaginal discharge and vagina atrophic (severe) Speculum Exam - Cervix: normal appearance of the cervix and normal palpation Bimanual exam- vagina & uterus: normal bimanual exam, normal palpation, uterine size normal, bladder normal to palpation, normal palpation and non-tender Bimanual Exam- Adnexa, other: no masses Skin General skin exam: no rashes or lesions noted Rashes: no rashes Neuro General: patient oriented x3 Cognition (Neuro): normal cognition Extrem General: Yes normal to inspection Psych Attitude: cooperative Thought process: Normal thought process present Assessment & Plan Assessment & Plan (1) Encounter for well woman exam with routine gynecological exam: Code(s): Z01.419 - Encounter for gynecological examination (general) (routine) without abnormal findings Category: Medical Plan Discussed: Current recommendations for pap smears per ASCCP guidelines. Breast awareness, periodic self breast exams and yearly mammogram. Maintain a healthy lifestyle, well balanced diet including Calcium 1,200 mg and Vitamin D 600 IU daily, and routine exercise. Use of Replens moisturizer. Contact the office with any postmenopausal bleeding. Patient verbalizes understanding and agrees to the plan of care. She was given opportunity to ask questions and all questions were answered to the best of my ability. RTO in 1 year for annual glass enamel mixer exam. This note is constructed using voice recognition software. While every effort has been made to ensure accuracy, director safety council errors may have been included. Orders: Orders HPV High risk Today Z01.419 - Encounter for gynecological examination (general) (routine) without abnormal findings Pap Smear Today Z01.419 - Encounter for gynecological examination (general) (routine) without abnormal findings Coding Level of Care Code Est Pt Prev Care 40-64y(57881) Diagnoses Encounter for well woman exam with routine gynecological exam Z01.419
[2025-07-13 10:33] VITALS: BP 100/68; BMI 26.6
--- OUTSIDE RECORDS SUMMARY | 2025-07-13 12:35 | XMS_ITS | Encounter Summary ---
Author Organization [facility] Address [address] [facility] [address] [place] [address] Phone Care Team Providers Care Salt Cutter Name Role Phone Luis Enrique Light MD Primary Care Provider [phone] Encounter Details Date Type Department Care Team (Late st Contact Info) Description 06/12/2020 Ancillary Orders [facility],Outside Imaging [address] [place] [address] System, Provider Not In, [facility] [address] [address] Social History Tobacco Use Types Packs/Day Years Used Date Smoking Tobacco: Never Assessed Comments Unknown Sex and Gender Information Value Date Recorded Sex Assigned at Not on file Legal Sex Female 11:42 AM EDT Gender Identity Not on file Sexual Orientation Not on file documented as of this encounter Plan of Treatment Not on file documented as of this encounter Results * Mammogram Outside (No Interpretation) (05/04/2020 12:00 AM EDT) Narrative SYSTEMGENERATED, DOCUMENTATION - 06/12/2020 11:45 AM EDT This study is for PACS storage only and not for interpretation. us Provider Not In System PhD IMG OUTSIDE IMAGING W /OUT INTERPRETATION Final Result * Mammogram Outside (No Interpretation) (11/18/2019 12:00 AM EST) Narrative SYSTEMGENERATED, DOCUMENTATION - 06/12/2020 11:46 AM EDT This study is for PACS storage only and not for interpretation. us Provider Not In System PhD IMG OUTSIDE IMAGING W /OUT INTERPRETATION Final Result * Mammogram Outside (No Interpretation) (10/01/2018 12:00 AM EST) Narrative SYSTEMGENERATED, DOCUMENTATION - 06/12/2020 11:46 AM EDT This study is for PACS storage only and not for interpretation. us Provider Not In System PhD IMG OUTSIDE IMAGING W /OUT INTERPRETATION Final Result * Mammogram Outside (No Interpretation) (09/29/2017 12:00 AM EST) Narrative SYSTEMGENERATED, DOCUMENTATION - 06/12/2020 11:47 AM EDT This study is for PACS storage only and not for interpretation. us Provider Not In System PhD IMG OUTSIDE IMAGING W /OUT INTERPRETATION Final Result * Mammogram Outside (No Interpretation) (09/19/2016 12:00 AM EST) Narrative SYSTEMGENERATED, DOCUMENTATION - 06/12/2020 11:47 AM EDT This study is for PACS storage only and not for interpretation. us Provider Not In System PhD IMG OUTSIDE IMAGING W /OUT INTERPRETATION Final Result documented in this encounter Visit Diagnoses Not on filedocumented in this encounter Care Teams Salt Cutter Relationship Specialty Start Date End Date Luis Enrique Light MD [address] [place] [address] [email or web address] PCP - General Radiation Oncology 10/24/20 documented as of this encounter Additional Source Comments The information contained in this document represents components of the legal health record. It is not the complete legal health record.[facility]
--- OUTSIDE RECORDS SUMMARY | 2025-07-13 12:35 | XMS_ITS | Encounter Summary ---
Author Organization [facility] Address [address] [place] [address] [place] [address] Phone Care Team Providers Care Overlock Operator Name Role Phone Luis Enrique Light MD Primary Care Provider [phone] Encounter Details Date Type Department Care Team (Latest Contact Info) Description 12/07/2024 Transcribe Orders Virtual Department [address] [place] [address] Boom Calix MD [address] [place] [address] [place] [address] Unspecified menopausal and perimenopausal disorder (Primary Dx) [...] Primary documented in this encounter Care Teams Overlock Operator Relationship Specialty Start Date End Date Luis Enrique Light MD [address] [place] [address] [email or web address] PCP - General Radiation Oncology 10/24/20 documented as of this encounter Additional Source Comments The information contained in this document represents components of the legal health record. It is not the complete legal health record.[facility]
--- OUTSIDE RECORDS SUMMARY | 2025-07-13 12:35 | XMS_ITS | Clinical Summary ---
Author Organization [facility] Address [address] [address] Phone Care Team Providers Care Operations And Intelligence Assistant Name Role Phone Luis Enrique Light MD Primary Care Provider [phone] Allergies Active Allergy Reactions Criticality Noted Date Comments Prednisone 10/04/2020 Heart racing and dizziness Medications pantoprazole (PROTONIX) 20 MG tablet Take 20 mg by mouth daily. Active ferrous sulfate 324 mg (65 mg [place] iron) TbEC Take 324 mg by mouth every other day. Active lidocaine 5 % ointment Apply topically as needed. 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, estrogen receptor positive 06/15/2020 Cancer Staging:Pathologic stage from 06/15/2020:Stage IA(pT1c, pN1a(sn), cM0, G2, ER: Positive, MT: Positive, HER2: Negative) - Signed by Luis Enrique Light MD on 06/15/2020 Social History Tobacco Use Types Packs/Day Years [...] on file Sexual Orientation Not on file Last Filed Vital Signs Vital Sign Reading Time Taken Comments Blood Pressure 154/90 12/04/2020 9:56 AM EST Pulse 79 12/04/2020 9:56 AM EST Temperature - - Respiratory Rate - - Oxygen Saturation 100% 12/04/2020 9:56 AM EST Inhaled Oxygen Concentration - - Weight 65.5 kg (144 lb 6.4 oz) 12/04/2020 9:56 A M EST Height - - Body Mass Index - - Plan of Treatment Health Maintenance Due Date Last Done Comments LIPID PANEL 1966 DEPRESSION SCREENING 1978 SMOKING Hx and SMOKELESS TOBACCO SCREENING 1979 HEPATITIS C SCREENING 1984 HIV ONE-TIME SCREENING (18-65 YEARS) 1984 PNEUMOCOCCAL VACCINES (50+ years) (1 of 2 - PCV) 1985 ZOSTER VACCINES (1 of 2) 1985 PAP SMEAR 1987 COLOGUARD 2011 COLONOSCOPY 2011 COLORECTAL CANCER SCREENING 2011 FIT TEST 2011 FOBT 2011 SIGMOIDOSCOPY 2011 VIRTUAL COLONOSCOPY 2011 Adult Td,Tdap Booster 11/21/2021 11/21/2011, 003 MAMMOGRAM 05/04/2022 05/04/2020, 11/03, 10/01/2018, Additional history exists INFLUENZA VACCINE (#1) 2025 , 07/30/2019, 07/07/2018, Additional history exists COVID-19 VACCINE ( season) 2025 01/25/2021 HEPATITIS A VACCINES Aged Out No long er eligible based on patient's age to complete this topic HIB VACCINES Aged Out No longer eligi ble based on patient's age to complete this topic MENINGOCOCCAL VACCINES (ACWY) Aged Out No longer eligible based on patient's age to complete this topic MENINGOCOCCAL VACCINES (B) Aged Out N o longer eligible based on patient's age to complete this topic Medical Devices Not on file Procedures Procedure Name Priority Date/Time Associated Diagnosis Comments BI MAMMOGRAM OUTSIDE (NO INTERPRETATION) Routine 05/04/2020 12:00 AM EDT from Last 3 Months or Most Recently Relevant to Health Maintenance Results * Mammogram Outside (No Interpretation) (05/04/2020 12:00 AM EDT) Narrative SYSTEMGENERATED, DOCUMENTATION - 06/12/2020 11:45 AM EDT This study is for PACS storage only and not for interpretation. us Provider Not In System PhD IMG OUTSIDE IMAGING W /OUT INTERPRETATION Final Result from Last 3 Months or Most Recently Relevant to Health Maintenance Insurance [address] [place] [address] [facility] Care Teams Operations And Intelligence Assistant Relationship Specialty Start Date End Date Luis Enrique Light MD [address] [place] [address] [email or web address] PCP - General Radiation Oncology 10/24/20 Additional Source Comments The information contained in this document represents components of the legal health record. It is not the complete legal health record.[facility]
== END 2025-07-13 11:35 | disposition home or self-care (01) ==
PROVIDERS: PCP Internal Medicine; Visit Provider Advanced Practice Midwife
DX: Z01.419 Encounter for gynecological examination (general) (routine) without abnormal findings (principal)
CPT/HCPCS: 99396; 99459

== ENCOUNTER 2025-10-03 08:58 | Outpatient (AMB) | payer OTHER, SELFPAY ==
--- NOTE | 2025-10-03 08:59 | MHC.OFFVIS ---
Vital Signs 10/03/25 09:10 Height 5 ft 4 in Weight 161 lb BMI 27.6 BP 144/58 H Blood Pressure Location Lt brachial Position Sitting Pulse 81 Intake Visit Reasons: 6 month breast exam Intake Note: Patient is seen in office for 6 month follow up visit, breast exam. Pt c/o: denies any concerns mm:04/18/25 MRI:09/17/25 Allergies prednisone (PREDNISONE) Allergy (Intermediate, Verified 07/13/25 11:58) SHORTNESS OF BREATH, tachycardia HPI Comments Details: 60-year-old female patient returning for routine breast examination following a diagnosis of invasive ductal carcinoma in May 2020. She initially noted a palpable lump in the right breast in the upper outer quadrant subsequently underwent mammogram and ultrasound which revealed a suspicious lesion corresponding to the palpable mass.? Core biopsy revealed invasive ductal carcinoma.? She underwent a right breast lumpectomy with needle localization and sentinel node biopsy on 05/25/2020.? Pathology revealed a 2.0 cm invasive ductal carcinoma, ER/SD positive, HER2 Perfecto negative with negative margins.? One of 2 sentinel nodes were positive for malignancy.?Pathological stage pT1c N1a (sn) (i +). She was evaluated by Dr. Mathews and Dr. Light.? While awaiting chemotherapy she developed acute cholecystitis subsequently requiring a laparoscopic cholecystectomy performed on 06/29/2020.? She then underwent chemotherapy followed by radiation therapy.? Prior to the start of radiation therapy she developed COVID-19.? She is now on letrozole 2.5 mg daily.? Her last mammogram dated 04/18/2025 revealed no mammographic evidence of malignancy (BI-RADS 2). Breast MRI performed 09/17/2024 revealed postoperative changes in the right breast and no suspicious changes in the left breast (BI-RADS 2 right breast, BI-RADS 1 left breast). She was scheduled for an annual mammogram on 04/24/2026. [facility] Genetic testing (05/09/2020) revealed no clinically significant mutations or variants of unknown significance.? She denies any new breast symptoms. [facility] Medical History Torn meniscus Dyslipidemia Tear of medial meniscus of left knee Essential hypertension History of invasive ductal carcinoma of breast Acute colitis Acute colitis FH: melanoma BRCA gene mutation negative Anxiety COVID-19 delivery delivered Polyp of stomach Polyp of colon Breast cancer Surgical History History of dental surgery (03/2024) Invasive ductal carcinoma of right breast (~05/25/20) History of section History of elbow surgery History of hand surgery History of oral surgery History of esophagogastroduodenoscopy (EGD) (04/05/20) History of colonoscopy (2015) History of lumpectomy of right breast (05/25/20) H/O dilation and curettage History of cholecystectomy (06/28/20) Family History Father History of COPD Substance use disorder Mother History of anxiety History of hypertension Mental health disorder Sister History of colon cancer, Onset Age: 48 History of ovarian cancer History of breast cancer, Onset Age: 42 Mental health disorder Daughter History of cerebral palsy Paternal Grandmother History of DC (myocardial infarction) Maternal Grandfather History of DC (myocardial infarction) Paternal Uncle History of throat cancer Paternal Aunt History of breast cancer Family/Other Bone cancer Family/Other Melanoma Social History Household Members: Spouse and Children Housing: House Alcohol intake: current Alcohol intake frequency: holidays/special occasions only Alcohol type: beer Comment: COUNTS CORRECT Patient Tobacco Use Status: Former Tobacco user Cigarette Packs Per Day: 1 e-Cigarette/Vaping Use: Currently Using Substance Use Type: Marijuana service: No Current occupational status: 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 Sexual 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/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 Gender identity: Female Cognitive needs: No Hearing needs: No Vision needs: Yes Female Reproductive History Menstrual Age of Menarche: 13 Date of menopause: 07/13/20 Review of Systems Const All systems reviewed & are unremarkable except as noted in HPI and below Card Reports no additional complaints Resp Reports no additional complaints GI Reports no additional complaints Denies nipple discharge Musc Details: Sciatica, currently undergoing physical therapy Skin/Breast Reports breast skin changes, Reports breast pain, Denies breast mass, Denies change in breast shape, Reports new lesions (Right arm as noted in HPI) and Denies nipple discharge Ravindra/Lymph Denies lymphadenopathy Physical Exam Const General: cooperative, healthy appearing, comfortable, no acute distress, well developed, alert and awake Neck Neck: Yes normal visual inspection and Yes no lymphadenopathy Chest Other: Right breast with a well-healed incision in the upper outer quadrant and axilla with no redness, mass, skin change, nipple discharge, nipple retraction, or palpable lymph nodes. There was mild tenderness in the upper outer quadrant corresponding to the area of incision. Left breast with no skin change, nipple discharge, nipple retraction, palpable mass, or enlarged lymph nodes. Chest/axillae images:  1. Incision upper outer quadrant right breast Skin Other: Right upper arm lesion as noted in chest above Neuro Other: Mobility Assessment: 1. 3 meter assessment time (seconds) 4 2. Gait observations: Normal balance and gait Extrem General: Yes no clubbing, cyanosis or edema Assessment & Plan Assessment & Plan (1) History of invasive ductal carcinoma of breast: Code(s): Z85.3 - Personal history of malignant neoplasm of breast Category: Medical (2) Family history of breast cancer: Code(s): Z80.3 - Family history of malignant neoplasm of breast Category: Medical (3) Invasive ductal carcinoma of right breast: Onset Date: ~05/25/20 Code(s): C50.911 - Malignant neoplasm of unspecified site of right female breast Category: Surgical Plan 60-year-old female with a history of a palpable mass in the right breast determined to be an invasive ductal carcinoma, 2 cm, ER positive, SD positive, HER2 Perfecto negative. She underwent a right breast lumpectomy with sentinel node biopsy. Pathological stage pT1c N1a (sn) (i +). She underwent adjuvant chemotherapy and radiation therapy. She is now on letrozole 2.5 mg daily.. Examination today reveals no evidence of recurrence disease. Mammogram dated 04/18/2025 revealed no mammographic evidence of malignancy (BI-RADS 2). Breast MRI performed on 09/17/2024 revealed no MR specific evidence of malignancy (BI-RADS 2 right breast, BI-RADS 1 left breast). She will be scheduled for a follow-up MRI. Follow-up examination is recommended in 1 year. Orders: Orders MR breast BI wo/w con Today Z80.3 - Family history of malignant neoplasm of breast, Z85.3 - Personal history of malignant neoplasm of breast Coding Level of Care Code Est Pt Level 3 (35233) Complex visit Add On G2211 Diagnoses History of invasive ductal carcinoma of breast Z85.3 Family history of breast cancer Z80.3 Invasive ductal carcinoma of right breast C50.911
[2025-10-03 09:10] VITALS: BP 144/58; PULSE 81; BMI 27.6
--- OUTSIDE RECORDS SUMMARY | 2025-10-03 10:22 | XMS_ITS | Encounter Summary ---
Author Organization [facility] Address [address] [facility] [address] [place] [address] Phone Care Team Providers Care Software Intern Name Role Phone Luis Enrique Light MD Primary Care Provider [phone] Encounter Details Date Type Department Care Team (Late st Contact Info) Description 06/12/2020 Ancillary Orders [facility],Outside Imaging [address] [place] [address] System, Provider Not In, [facility] [address] [address] Social History Tobacco Use Types Packs/Day Years [...] on filedocumented in this encounter Care Teams Software Intern Relationship Specialty Start Date End Date Luis Enrique Light MD [address] [place] [address] [email or web address] PCP - General Radiation Oncology 10/24/20 documented as of this encounter Additional Source Comments The information contained in this document represents components of the legal health record. It is not the complete legal health record.[facility]
--- OUTSIDE RECORDS SUMMARY | 2025-10-03 10:22 | XMS_ITS | Encounter Summary ---
Author Organization [facility] Address [address] [place] [address] [place] [address] Phone Care Team Providers Care Russian Rubber Name Role Phone Luis Enrique Light MD Primary Care Provider [phone] Encounter Details Date Type Department Care Team (Latest Contact Info) Description 12/07/2024 Transcribe Orders Virtual Department [address] [place] [address] Boom Calix MD [address] [place] [address] [place] [address] Unspecified menopausal and perimenopausal disorder (Primary Dx) [...] Primary documented in this encounter Care Teams Russian Rubber Relationship Specialty Start Date End Date Luis Enrique Light MD [address] [place] [address] [email or web address] PCP - General Radiation Oncology 10/24/20 documented as of this encounter Additional Source Comments The information contained in this document represents components of the legal health record. It is not the complete legal health record.[facility]
--- OUTSIDE RECORDS SUMMARY | 2025-10-03 10:22 | XMS_ITS | Clinical Summary ---
Author Organization [facility] Address [address] [address] Phone Care Team Providers Care Facilities Specialist Name Role Phone Luis Enrique Light MD Primary Care Provider [phone] Allergies Active Allergy Reactions Criticality Noted Date Comments Prednisone 10/04/2020 Heart racing and dizziness Medications pantoprazole (PROTONIX) 20 MG tablet Take 20 mg by mouth daily. Active ferrous sulfate 324 mg (65 mg [place] iron) TbEC Take 324 mg by mouth every other day. Active lidocaine 5 % ointment Apply topically as needed. 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, estrogen receptor positive 06/15/2020 Cancer Staging:Pathologic stage from 06/15/2020:Stage IA(pT1c, pN1a(sn), cM0, G2, ER: Positive, GA: Positive, HER2: Negative) - Signed by Luis [...] 07/30/2019, 07/07/2018, Additional history exists COVID-19 VACCINE (2 - 2024- season) 2025 01/25/2021 RSV VACCINE (1 - 1-dose 75+ series) 2041 HEPATITIS A VACCINES Aged Out No long [...] Most Recently Relevant to Health Maintenance Insurance [facility] Member Subscriber Plan / Payer (Ef fective 2020-Present) Name:Aide Alvares Relation to Subscriber:Self Name:Aide Alvares Payer ID:Not on file Type:HMO Address: [place] [id number] [facility] Care Teams Facilities Specialist Relationship Specialty Start Date End Date Luis Enrique Light MD [address] [place] [id number] [email or web address] PCP - General Radiation Oncology 10/24/20 Additional Source Comments The information contained in this document represents components of the legal health record. It is not the complete legal health record.[facility]
== END 2025-10-03 09:24 | disposition home or self-care (01) ==
LOC: HO.HGS 08:59
PROVIDERS: PCP Internal Medicine; Visit Provider Surgery
DX: Z85.3 Personal history of malignant neoplasm of breast (principal); Z80.3 Family history of malignant neoplasm of breast; C50.911 Malignant neoplasm of unspecified site of right female breast
CPT/HCPCS: 99213

== ENCOUNTER → 2025-10-03 08:58 | Outpatient (BNVA) | payer OTHER, SELFPAY | PROVIDERS: PCP Internal Medicine; Visit Provider Surgery | DX: C50.911 Malignant neoplasm of unspecified site of right female breast (principal); Z85.3 Personal history of malignant neoplasm of breast; Z12.39 Encounter for other screening for malignant neoplasm of breast; Z80.3 Family history of malignant neoplasm of breast; Z87.891 Personal history of nicotine dependence | CPT/HCPCS: 99212 ==